=== PATIENT | female | born 1940 | race Caucasian/White ===

== ENCOUNTER 2021-11-02 09:43 | Inpatient (IN) | payer MEDICARE, SELFPAY ==
[2021-11-02] VITALS (21 sets, daily range): BP systolic 110–158; BP diastolic 50–82; PULSE 65–81; RESP 17–28; TEMP 35.7–36.8; O2SAT 92–100
--- NOTE | ~2021-11-02 | XR_ITS ---
EXAMINATION: XR chest 2V DATE: 11/06/2021 08:30 INDICATION: Congestive heart failure with shortness of breath. TECHNIQUE: frontal and lateral views of the chest were obtained. COMPARISON: Chest radiograph dated 11/05/[address] dated 04/18 FINDINGS: Hazy opacities in the left mid and upper lung zones and more dense consolidation in the left lower lauren ng zone. Blunting at the left costophrenic angle. Dense material along the right heart border without correlate on the prior CT most likely related to ingested material within a moderate-sized sliding-t ype hiatal hernia. No pneumothorax or right-sided pleural effusion. Cardiomegaly with dense mitral an nular calcification. Dual lead pacemaker seen with leads projecting over the expected locations of th e right atrium and right ventricle. Chronic calcified nodules projecting over the liver likely relate d to old granulomatous disease. Severe bilateral glenohumeral osteoarthritis. Multiple surgical clips projecting over the left axilla. IMPRESSION: 1. Moderate-sized left pleural effusion with atelectasis and/or pneumonia. Left lower lung zone. Reviewed, dictated and finalized at location A. [employer] LIN[employer] UNDERWRITER
--- NOTE | ~2021-11-02 | CT_ITS ---
EXAMINATION: CT brain wo con EXAM DATE: 11/03/2021 00:17 INDICATION: Confusion . TECHNIQUE: Spiral CT of the head was performed without contrast. Axial, coronal and sagittal images were reviewed. The dose-length product (DLP) for this examination was 681.00 mGy-cm. The exposure w as tailored according to patient size, and iterative reconstruction (ASIR) was used as additional dos e reduction technique. There is no prior study for comparison. FINDINGS: There is no acute intraparenchymal hemorrhage. No evidence of intraparenchymal brain mass lesion. No evidence of acute infarction. Please note that initial head CT has limited sensitivity f or small or acute infarctions. There is mild periventricular and subcortical hypodensity, nonspecific but probably related to small vessel ischemic disease. There is mild prominence of the sulci and v entricles related to cerebral atrophy. There is intracranial carotid arteriosclerosis. There are n o extra-axial collections. There is no mass effect or midline shift. The orbits are unremarkable. Bilateral The visualized sinuses and mastoid air cells are well aerated. IMPRESSION: 1. No acute intracranial findings. 2. Chronic age related findings. Reviewed, dictated and finalized at location G. ER APPRENTICE
--- NOTE | ~2021-11-02 | CT_ITS ---
EXAMINATION: CT diagnostic chest wo con EXAM DATE: 11/02/2021 15:06 INDICATION: Pleural effusion . TECHNIQUE: Spiral CT of the chest without contrast. Axial, coronal and sagittal images of the chest were reviewed. Coronal maximum intensity pixel images of chest reviewed. The dose-length product ( DLP) for this examination was 468.84 mGy-cm. The exposure was tailored according to patient size (au to mA exposure control), and iterative reconstruction (ASIR) was used as additional dose reduction te chnique. Correlation is made to chest x-ray same date. FINDINGS: Moderate cardiomegaly. The main, central pulmonary arteries are dilated which can indicate elevated pulmonary arterial pressure, pulmonary arterial hypertension. Small to moderate pericardial effusion. There is moderate to large size left pleural effusion with collapsed left lower lobe. Ther e is small right pleural effusion with segmental atelectasis. There is right upper lobe 7 mm nodule, indeterminate. Cluster of right lower lobe nodule just above the diaphragm, largest measuring 8 mm. M oderate size sliding gastroesophageal hiatal hernia. No thoracic lymphadenopathy. There are left axil kati surgical clips. Severe bilateral glenohumeral joint osteoarthritis. Left glenohumeral joint effu jermaine. There are no osteoblastic or osteolytic lesions identified. Mild emphysema. Cholelithiasis. IMPRESSION: 1. Moderate to large left nonloculated joint effusion, left lower lobe collapse. 2. Cardiomegaly, small to moderate pericardial effusion. 3. Right lower lobe segmental atelectasis, small pleural effusion. 4. Several right lung nodules, probably infectious or postinfectious but 3 month follow-up chest CT recommended. 5. Mild emphysema. 6. Moderate hiatal hernia. 7. Cholelithiasis. Reviewed, dictated and finalized at location A. Y CLERK IMPRESSION: 1. Moderate to large left nonloculated joint effusion, left lower lobe collaps e. 2. Cardiomegaly, small to moderate pericardial effusion. 3. Right lower lobe segmental atelectasis, small pleural effusion. 4. Several right lung nodules, probably infectious or postinfectious but 3 mon th follow-up chest CT recommended. 5. Mild emphysema. 6. Moderate hiatal hernia. 7. Cholelithiasis.
--- NOTE | ~2021-11-02 | XR_ITS ---
XR chest 1V portable 11/05/2021 05:43 Indication: Pleural effusion Procedure: AP portable chest Comparison: 11/02/2021 Findings: There is bilateral airspace disease. Cardiomegaly. Pacemaker leads are stable. Small-modera te left pleural effusion unchanged. No pneumothorax. Advanced degenerative changes of the shoulders, left greater than right. Impression: 1: Bilateral airspace disease with small-moderate left pleural effusion. Differential diagnosis inclu emil edema and pneumonia. No significant interval change. Reviewed, dictated and finalized at location A. ROOM OPERATOR Impression: 1: Bilateral airspace disease with small-moderate left pleural effusion. Differ ential diagnosis includes edema and pneumonia. No significant interval change.
--- NOTE | ~2021-11-02 | XR_ITS ---
EXAMINATION: XR chest 1V portable DATE: 11/02/2021 12:12 INDICATION: Fever. TECHNIQUE: A single frontal view of the chest was obtained. COMPARISON: None. FINDINGS: There is a moderate-sized left pleural effusion. There are airspace opacities in all lung z ones bilaterally with a perihilar and left basilar predominance. No pneumothorax. The heart size is n ormal. There is a left chest wall pacer with leads in the right atrium and right ventricle. There are surgical clips in left axilla. IMPRESSION: 1. Moderate-sized left pleural effusion. 2. Diffuse lung disease, consistent with pulmonary edema versus pneumonia. Reviewed, dictated and finalized at location A. [employer]
[2021-11-02 11:17] LABS: Basophils Absolute Auto 0.1 K/mm3 (0.0-0.1); Basophils Percent Auto 0.7 % (0.2-1.2); Eosinophils Absolute Auto 0.6 K/mm3 (0-0.3); Eosinophils Percent Auto 5.2 % (0-4.4); Hematocrit 36.4 % (37.0-47.0); Hemoglobin 10.8 g/dL (12.0-15.0); Immature Granulocyte Absolute 0.06 K/mm3 (0.00-0.031); Immature Granulocyte Percent A 0.5 % (0-0.5); Lymphocytes Absolute Auto 1.08 K/mm3 (0.9-3.2); Lymphocytes Percent Auto 8.9 % (18.3-44.2); Mean Corpuscular HGB Conc 29.7 g/dl (32-36); Mean Corpuscular Hemoglobin 27.7 pg (26-34); Mean Corpuscular Volume 93.3 fl (80-100); Monocytes Absolute Auto 0.9 K/mm3 (0.1-0.6); Monocytes Percent Auto 7.7 % (2.6-8.5); Neutrophils Absolute Auto 9.3 K/mm3 (1.3-6.7); Platelet Count Result 432 k/mm3 (150-375); Red Cell Distribution Width 16.7 % (11.5-14.5); White Blood Count 12.1 K/mm3 (4.5-10.0)
[2021-11-02 11:24] LABS: Add Urine Microscopic? YES; Appearance Urine Turbid (Clear); Bilirubin Urine Negative (Negative); Color Urine Yellow (Yellow); Glucose Urine UA Negative (Negative); Ketones Urine Negative (Negative); Leukocyte Esterase Ur 3+ LEU/UL (Negative); Mucus Urine Rare /lpf; Nitrate Urine Negative (Negative); Protein Urine 2+ mg/dL (Negative); RBC Urine 21-50 /hpf (0-2); Urobilinogen Urine Negative mg/dL (<2.0); WBC Urine >75 /hpf
[2021-11-02 11:25] LABS: Blood Urine Negative (Negative)
--- NOTE | 2021-11-02 11:29 | ED.FEVER ---
HPI - Fever General Chief Complaint: Fever Stated Complaint: Fever Time Seen by Provider: 11/02/21 10:46 Source: EMS and RN notes reviewed Limitations: dementia History of Present Illness HPI Narrative: Patient is 80 years old white male brought to the emergency room by ambulance from [facility] because of fever and hallucination. EMT reported that patient was off oxygen at the time when they got there. Patient normally on 2 L of oxygen all the time.. Currently patient is asymptomatic denying any complaint. Related Data Home Medications Medication Instructions Recorded Confirmed aspirin 81 mg PO DAILY 11/02/21 11/02/21 clopidogrel 75 mg PO DAILY 11/02/21 11/02/21 cyanocobalamin (vitamin B-12) 100 mcg PO DAILY 11/02/21 11/02/21 lisinopril 10 mg PO DAILY 11/02/21 11/02/21 mesalamine 1.2 g PO BID 11/02/21 11/02/21 nitroglycerin 0.4 mg SUBLINGUAL Q5M PRN 11/02/21 11/02/21 oxcarbazepine 300 mg PO BID 11/02/21 11/02/21 pyridoxine (vitamin B6) 100 mg PO DAILY 11/02/21 11/02/21 tetrahydrozoline [Visine] 2 drp EACH EYE TID 11/02/21 11/02/21 umeclidinium [Incruse Ellipta] 1 inh INHALATION DAILY 11/02/21 11/02/21 Allergies Allergy/AdvReac Type Severity Reaction Status Date / Time amoxicillin [From Augmentin] Allergy Unknown Verified 11/02/21 10:07 azithromycin Allergy Unknown Verified 11/02/21 10:07 celecoxib [From Celebrex] Allergy Unknown Verified 11/02/21 10:07 ciprofloxacin [From Cipro] Allergy Unknown Verified 11/02/21 10:07 clavulanic acid Allergy Unknown Verified 11/02/21 10:07 [From Augmentin] codeine Allergy Unknown Verified 11/02/21 10:07 Corticosteroids Allergy Unknown Verified 11/02/21 10:07 (Glucocorticoids) dill oil Allergy Unknown Verified 11/02/21 10:07 divalproex sodium Allergy Unknown Verified 11/02/21 10:07 [From Depakote] doxycycline Allergy Unknown Verified 11/02/21 10:07 erythromycin base Allergy Unknown Verified 11/02/21 10:07 hydralazine Allergy Unknown Verified 11/02/21 10:07 hydrochlorothiazide Allergy Unknown Verified 11/02/21 10:07 ipratropium [From Atrovent] Allergy Unknown Verified 11/02/21 10:07 lithium Allergy Unknown Verified 11/02/21 10:07 magnesium Allergy Unknown Verified 11/02/21 10:07 mesalamine [From Asacol] Allergy Unknown Verified 11/02/21 10:07 NSAIDS (Non-Steroidal Allergy Unknown Verified 11/02/21 10:07 Anti-Inflamma petrolatum,white Allergy Unknown Verified 11/02/21 10:07 [From Vaseline] rahul hips Allergy Unknown Verified 11/02/21 10:07 Xsltxuv-SDI-MpA Reductase Allergy Unknown Verified 11/02/21 10:07 Inhibitor Sulfa (Sulfonamide Allergy Unknown Verified 11/02/21 10:07 Antibiotics) tramadol Allergy Unknown Verified 11/02/21 10:07 triamcinolone Allergy Unknown Verified 11/02/21 10:07 diuretic Allergy Unknown Uncoded 11/02/21 10:07 Review of Systems Review of Systems: ROS unobtainable: Yes unobtainable due to mental status Exam Narrative: General appearance: Well-developed, well-nourished Skin: Normal color Head: Normocephalic, nontraumatic Eyes: Clear conjunctiva ENT: Oropharynx normal, ears normal, nose normal Neck: Supple, nontender Chest and respiratory: Airway patent, no respiratory distress, no accessory muscle use Heart: Regular rate/rhythm Abdomen: Soft, nontender, no organomegaly, quiet bowel sounds Vascular: Normal peripheral pulses, normal capillary refill. Musculoskeletal: Patient laying down in bed, Neurologic: Alert and oriented to her name only Course Course Emergency Course: Stable Vital Signs Vital signs: Vital Signs Temperature 36.8 C 11/02/21 09:55 Pulse Rate 77 11/02/21 09:55 Respiratory Rate 23 H 11/02/21
[2021-11-02 11:31] LABS: Hypochromasia 1+ (NORMAL); Ovalocytes 1+ (NORMAL); Platelet Estimate Adequate (Adequate); Poikilocytosis 1+ (NORMAL); Stomatocytes 1+ (NORMAL)
[2021-11-02] MEDS: SODIUM CHLORIDE 0.9% IV 1,000 ML 999 ML IV CONT (11:33)
[2021-11-02 11:38] LABS: Alanine Aminotransferase 14 U/L (4-35); Albumin Level 3.7 g/dL (3.5-5.1); Alkaline Phosphatase 76 U/L (38-126); Anion Gap 7 mmol/L (8-16); Aspartate Amino Transferase 22 U/L (14-36); Bilirubin,Total 0.2 mg/dL (0.2-1.3); Blood Urea Nitrogen 20 mg/dL (7-17); Calcium 9.5 mg/dL (8.4-10.2); Carbon Dioxide 26 mmol/L (22-30); Chloride 105 mmol/L (98-107); Estimated Glomerular Filt Rate > 60; Glucose 130 mg/dL (65-110); Potassium 4.8 mmol/L (3.4-5.0); Sodium 138 mmol/L (137-145)
[2021-11-02 11:42] LABS: Alveolar/Arterial O2 Gradient 60.2 mmHg; Base Excess ABG -3.6 mEq/l (+/-2.0); Fractional Inspired Oxygen 28 %; HCO3 ABG 22.1 mEq/l (22.0-26.0); Oxygen Content ABG 15.1 %vol (16.0-22.0); Oxygen Saturation ABG 96.3 % (95.0-100.0); Oxyhemoglobin 95.5 % THb (90.0-100.0); PCO2 ABG 42.4 mmHg (35.0-45.0); PO2 ABG 89.4 mmHg (80.0-100.0); PO2 FiO2 Ratio Arterial Blood 3.19 %; Total Hemoglobin 11.2 g/dL (12.0-18.0); pH ABG 7.335 (7.350-7.450)
[2021-11-02 11:43] LABS: Device NASAL CANNULA; Modified Allen's Test Pass; Site Drawn LEFT RADIAL
[2021-11-02 12:55] LABS: INR 1.1; Partial Thromboplastin Time 25.5 SECONDS (22.3-36.8); Prothrombin Time 13.8 Seconds (11.1-14.7)
[2021-11-02 13:00] LABS: CRP 3.8 mg/dL (<1.0)
--- NOTE | 2021-11-02 14:25 | PC.NURSE ---
Pt acting more confused than when she first arrived. talking about things that are not making since.
--- NOTE | 2021-11-02 14:45 | PM.IMHP ---
H&P: HPI History of Present Illness Date/Time: 11/02/21 14:45 Chief Complaint: Fever and confusion. Narrative: This is a 80-year-old female who presented to the emergency department earlier today via EMS from rehab for evaluation of fever and confusion. She is not a great historian and unfortunately has never been seen at this facility and as such a majority of the following is obtained via a review of the limited paperwork which accompanies her. She was not able to tell me about her chronic medical conditions, previous surgeries, or family history. The patient tells me that she has from [place] and that she has been hospitalized in several places recently, and is reportedly here for rehab, though she cannot give me any specifics. She is aware that she is in the hospital but does not know why she was brought here and tells me that she feels just fine. According to EMS documentation, she is alert and oriented x4 at baseline though today she was noted to be confused and seemed to be worried that she is being lied to in that she is not safe. Due to her confusion and fever (101.7? F) she was sent in for evaluation. Pertinent findings in the ED include a white blood cell count of 12,000, CRP of 3.8, and abnormal urinalysis with 3+ leukocyte esterase and greater than 75 WBC. Chest x-ray showed a moderate size left pleural effusion as well as diffuse lung disease consistent with pulmonary edema versus pneumonia. A subsequent CT of the chest showed a moderate to large left pleural effusion with left lower lobe collapse, small to moderate pericardial effusion, several right lung nodules (probably infectious or postinfectious), and left glenohumeral joint effusion with other nonacute findings. Rapid COVID test came back negative. At the time my evaluation she is quite chatty but she remains confused. She does not know why she was brought to the emergency department and she seems to not trust any of the information that I am giving her. She is adamant that she does not have a urine infection ?as I have no symptoms of that whatsoever.? She also denies fever, chills, sweats, cold and flu symptoms, swelling or pain in her left shoulder, chest pain, shortness of breath, cough, nausea, vomiting, and diarrhea. Review of Systems Review of Systems: Twelve systems were reviewed. She is not aware of any sick contacts. She denies dysphagia and concerns for aspiration. She does not think she has had any recent illnesses however she tells me that she has been in several hospitals recently though the reason of which she was hospitalized is not clear. She does remember that her legs were pretty swollen with her hospitalizations and she thinks she may have congestive heart failure. She denies orthopnea, PND, and any significant lower extremity edema at this time. She has not had chest pain, pleuritic pain, or palpitations. Except as documented, all other systems were reviewed and are negative. [facility] Past Medical History Medical History (Updated 11/02/21 @ 21:52 by Fay Lima PA-C) Chronic respiratory failure with hypoxia, on home oxygen therapy Congestive heart failure Diabetic peripheral neuropathy Hypertension Type 2 diabetes mellitus Ulcerative colitis Surgical History Surgical History (Updated 11/02/21 @ 20:21 by Fay Lima PA-C) History of bilateral knee replacement Family History Family History Other Family history unknown Social History Social History (Updated 11/02/21 @ 21:53 by Fay Lima PA-C) Social History: Surrogate decision maker: Jacquelyn Bella, daughter. Code status: Full code. Smoking status: Former smoker Alcohol intake: never Substance use: never Meds Home Medications and Allergies Home Medications Medication Instructions Recorded Confirmed Type albuterol sulfate 2 puff INHALATION Q4H PRN 11/02/21 11/02/21 History ascorbic acid (vitamin C) 25
--- NOTE | 2021-11-02 14:54 | PC.NURSE ---
Pt yelled out and says im bleeding! this RN went in and found both of pts IVs on the floor. Pt placed on a bed alarm at this time.
[2021-11-02 15:09] LABS: EDCOVIDSCREEN Negative (Negative)
[2021-11-02] MEDS: SODIUM CHLORIDE 0.9% IV 1,000 ML 125 ML IV CONT (15:26)
--- NOTE | 2021-11-02 19:57 | ADMGEN ---
This patient, Isela Bella, was admitted to Medical Room 245-. Patient/family oriented to hospital policies and general routines including ID bracelet, bed and alarms, visiting hours, pain management, procedures, bathroom and other care routines, personal items, smoking policy, room service/diet, and visiting hours. Information on how to activate the Rapid Response Team has been discussed. Patient/Family are encouraged to report perceived risks to care and to ask questions if they do not understand what they are told or what they should do.
[2021-11-02 22:05] LABS: Glucose Point of Care 165 mg/dl (65-105)
[2021-11-02 22:48] LABS: Influenza Control Positive
--- NOTE | 2021-11-03 | ECHO_ITS ---
Patient Info Name: Isela Bella Age: 80 years : 1940 Gender: Female Ht: 64 in Wt: 164 lbs BSA: 1.85 m2 HR: 78 bpm BP: 111 / 56 mmHg Technical Quality: Fair Exam Date: 11/03/2021 2:59 PM Exam Location: [facility] Patient Status: Inpatient Admit Date: 11/02/2021 Staff Ordering Physician: Alcides Beal Plant Production Worker: Atul Bella RDCS, RT Attending Provider: Juan Jose Garcia MD Referring Physician: Emigdio REN; Exam Type: CA echo doppler color flow Study Info Indications J91.8 - Pleural effusion in other conditions classified elsewhere Complete two-dimensional, color flow and Doppler transthoracic echocardiogram is performed with contrast to opacify the left ventricle and to improve the deliniation of the left ventricle endocardial borders. Summary 1. Left ventricular chamber dimension is normal. 2. Definity contrast administered improved wall motion interpretation. 3. Ventricular septum is mildly sigmoid shaped. No LVOT obstruction. 4. Left ventricular systolic function is normal, estimated at 65-70%. 5. There is mildly increased left ventricular wall thickness. 6. The left ventricular diastolic function is grade I diastolic dysfunction. 7. E/e' 14 is mildly elevated. 8. Right ventricular systolic function is reduced based on abnormal TAPSE 1.4 cm. 9. Linear artifact in right ventricle suggestive of catheter(s), pacemaker lead(s), or ICD lead(s). 10. Left atrial chamber dimension is moderately enlarged. 11. Linear artifact in the right atrium suggestive of catheter(s), pacemaker lead(s), or ICD lead(s). 12. There is severe aortic valve sclerosis. 13. There is severe aortic valve stenosis with a peak velocity of 443 cm/s, mean gradient of 33 mmHg, and aortic valve area of 0.9 cm2. 14. The mitral valve has mildly calcified mitral valve leaflets and moderately calcified annulus. 15. There is small circumferential pericardial effusion. No cardiac tamponade. Left Ventricle E/e' 14 is mildly elevated. Definity contrast administered improved wall motion interpretation. Ventricular septum is mildly sigmoid shaped. No LVOT obstruction. Left ventricular chamber dimension is normal. Left ventricular systolic function is normal, estimated at 65-70%. There is mildly increased left ventricular wall thickness. The left ventricular diastolic function is grade I diastolic dysfunction. Right Ventricle Right ventricular systolic function is reduced based on abnormal TAPSE 1.4 cm. Linear artifact in right ventricle suggestive of catheter(s), pacemaker lead(s), or ICD lead(s). Right ventricular chamber dimension is not well visualized. Left Atria Left atrial chamber dimension is moderately enlarged. Right Atria Linear artifact in the right atrium suggestive of catheter(s), pacemaker lead(s), or ICD lead(s). Right atrial chamber dimension is normal. Aortic Valve The aortic valve is not well visualized. Cannot determine number of aortic valve leaflets. There is severe aortic valve sclerosis. There is severe aortic valve stenosis with a peak velocity of 443 cm/s, mean gradient of 33 mmHg, and aortic valve area of 0.9 cm2. There is no aortic valve regurgitation. Pulmonic Valve There is no pulmonic regurgitation. Mitral Valve The mitral valve has mildly calcified mitral valve leaflets and moderately calcified annulus. There is no mitral valve stenosis. There is no mitral valve regurgitation. Tricuspid Valve There is no tricuspid valve regurgitation.
[2021-11-03 01:26] LABS: Hemoglobin A1C 6.8 % (<5.7)
[2021-11-03 03:15] VITALS: BP 131/50; PULSE 65; RESP 16; TEMP 36.4; O2SAT 99
[2021-11-03 05:44] LABS: Hematocrit 33.2 % (37.0-47.0); Hemoglobin 9.8 g/dL (12.0-15.0); Mean Corpuscular HGB Conc 29.5 g/dl (32-36); Mean Corpuscular Hemoglobin 27.5 pg (26-34); Mean Platelet Volume 10.1 fl (7.4-10.4); Platelet Count Result 403 k/mm3 (150-375); Red Blood Count 3.57 M/mm3 (4.2-5.4); Red Cell Distribution Width 16.3 % (11.5-14.5)
[2021-11-03 08:00] VITALS: BP 122/48; PULSE 60; RESP 14; TEMP 36.6; O2SAT 97
[2021-11-03 08:27] LABS: Glucose Point of Care 126 mg/dl (65-105)
[2021-11-03 08:49] LABS: Anion Gap 8 mmol/L (8-16); Blood Urea Nitrogen 13 mg/dL (7-17); Calcium 8.9 mg/dL (8.4-10.2); Carbon Dioxide 22 mmol/L (22-30); Chloride 109 mmol/L (98-107); Estimated Glomerular Filt Rate > 60; Glucose 124 mg/dL (65-110); Magnesium 1.6 mg/dL (1.6-2.3); Potassium 4.3 mmol/L (3.4-5.0); Sodium 139 mmol/L (137-145)
[2021-11-03 08:52] LABS: Free T4 Free Thyroxine Reflex 0.44 ng/dL (0.78-2.19)
[2021-11-03] MEDS: ASPIRIN 81 MG ENTERIC TABLET PO (08:57)
[2021-11-03] MEDS: ASCORBIC ACID 250 MG TABLET PO ×2 (08:57→17:49)
[2021-11-03] MEDS: PYRIDOXINE HCL 50 MG TABLET 100 MG PO (08:57)
[2021-11-03] MEDS: LEVOTHYROXINE SODIUM 150 MCG TABLET PO (08:57)
[2021-11-03] MEDS: OXcarbazepine 300 MG TABLET PO ×2 (08:57→17:49)
[2021-11-03] MEDS: CLOPIDOGREL BISULFATE 75 MG TABLET PO (08:57)
[2021-11-03] MEDS: glipiZIDE 5 MG TABLET PO (08:58)
[2021-11-03] MEDS: lisinopriL 10 MG TABLET PO (08:58)
[2021-11-03] MEDS: GABAPENTIN 100 MG CAPSULE 200 MG PO ×2 (08:59→17:50)
[2021-11-03 09:22] LABS: Vitamin B12 > 1000.0 pg/mL (239-931)
--- NOTE | 2021-11-03 09:30 | PM.IMPN ---
Progress Note: A&P Assessment and Plan (1) Metabolic encephalopathy: Code(s): G93.41 - Metabolic encephalopathy Status: Acute Assessment and Plan: Seems to be better today Likely related to fever Urinalysis is abnormal, denies symptoms of UTI Chest x-ray showed pulmonary edema versus pneumonia chest CT shows several right lung nodules which is felt to be infectious or postinfectious. Due to allergies continue ceftriaxone for now urine and sputum cultures collected and pending (2) Abnormal urinalysis: Code(s): R82.90 - Unspecified abnormal findings in urine Status: Acute Assessment and Plan: Urine concerning for urinary tract infection UA shows tubid, positive leukocyte esterase, and WBC >75 Continue ceftriaxone pending urine culture (3) Congestive heart failure: Code(s): I50.9 - Heart failure, unspecified Status: Acute Assessment and Plan: Chest xray shows Moderate-sized left pleural effusion, Diffuse lung disease, consistent with pulmonary edema versus pneumonia. Chest CT: Moderate to large pleural effusion nonloculated small to moderate pericardial effusion Cardiomeagaly Start of with 40mg IV daily for now Echo is ordered to determine if this is an acute exacerbation and if so if it is diastolic/systolic Trend urine output Daily weight (4) Chronic respiratory failure with hypoxia, on home oxygen therapy: Code(s): J96.11 - Chronic respiratory failure with hypoxia; Z99.81 - Dependence on supplemental oxygen Status: Acute Assessment and Plan: SpO2 is 100% on 2 L nasal cannula No noted desaturation (5) Hypertension: Code(s): I10 - Essential (primary) hypertension Status: Acute Assessment and Plan: Current BP is 122/48 Continue home lisinopril 10mg Trend blood pressure adjust therapy as indicated (6) Ulcerative colitis: Code(s): K51.90 - Ulcerative colitis, unspecified, without complications Status: Acute Assessment and Plan: Abdominal exam is benign and she has no complaints of pain at this time Continue home meslamine (7) Type 2 diabetes mellitus: Code(s): E11.9 - Type 2 diabetes mellitus without complications Status: Acute Assessment and Plan: Glucose on labs 124 Initiate sliding scale insulin Accu-Cheks hypoglycemic protocol hemoglobin A1c 6.8 Hold home glipizide (8) Fever: Code(s): R50.9 - Fever, unspecified Status: Acute Assessment and Plan: Not sure that this is relevant any further since there is no reported fever for more than 24 hours Secondary to possible UTI or ABG even pneumonia. Rapid COVID test was negative. Influenza negative (9) Pleural effusion: Code(s): J90 - Pleural effusion, not elsewhere classified Status: Acute Assessment and Plan: Moderate to large left side pleural effusion, with lung collapse Thoracentesis ordered and pending Hold anticoagulation for now Will need DVT Prophlyaxis add Lasix started (10) Pericardial effusion: Code(s): I31.3 - Pericardial effusion (noninflammatory) Status: Acute Assessment and Plan: Found on the CT Could be related to the CHF (11) Hypomagnesemia: Code(s): E83.42 - Hypomagnesemia Status: Acute Assessment and Plan: Mg 1.6 today Replace with 2gm IV once Trend Replace as indicated Time Spent With Patient Time with patient: Greater than 35 minutes Subjective Date/time seen: 11/03/21 09:30 Interval history: Date/Time: 11/02/21 14:45 Narrative: This is a 80-year-old female who presented to the emergency department earlier today via EMS from rehab for evaluation of fever and confusion. She is not a great historian and unfortunately has never been seen at this facility and as such a majority of the following is obt
--- NOTE | 2021-11-03 09:30 | P.PNIM_ITS ---
Progress Note: A&P Assessment and Plan (1) Metabolic encephalopathy: Code(s): G93.41 - Metabolic encephalopathy Status: Acute Assessment and Plan: * Seems to be better today * Likely related to fever * Urinalysis is abnormal, denies symptoms of UTI * Chest x-ray showed pulmonary edema versus pneumonia * chest CT shows several right lung nodules which is felt to be infectious or postinfectious. * Due to allergies continue ceftriaxone for now * urine and sputum cultures collected and pending (2) Abnormal urinalysis: Code(s): R82.90 - Unspecified abnormal findings in urine Status: Acute Assessment and Plan: * Urine concerning for urinary tract infection * UA shows tubid, positive leukocyte esterase, and WBC >75 * Continue ceftriaxone * pending urine culture (3) Congestive heart failure: Code(s): I50.9 - Heart failure, unspecified Status: Acute Assessment and Plan: * Chest xray shows Moderate-sized left pleural effusion, Diffuse lung disease, consistent with pulmonary edema versus pneumonia. * Chest CT: Moderate to large pleural effusion nonloculated * small to moderate pericardial effusion * Cardiomeagaly * Start of with 40mg IV daily for now * Echo is ordered to determine if this is an acute exacerbation and if so if it is diastolic/systolic * Trend urine output * Daily weight (4) Chronic respiratory failure with hypoxia, on home oxygen therapy: Code(s): J96.11 - Chronic respiratory failure with hypoxia; Z99.81 - Dependence on suppl emental oxygen Status: Acute Assessment and Plan: * SpO2 is 100% on 2 L nasal cannula * No noted desaturation (5) Hypertension: Code(s): I10 - Essential (primary) hypertension Status: Acute Assessment and Plan: * Current BP is 122/48 * Continue home lisinopril 10mg * Trend blood pressure * adjust therapy as indicated (6) Ulcerative colitis: Code(s): K51.90 - Ulcerative colitis, unspecified, without complications Status: Acute Assessment and Plan: * Abdominal exam is benign and she has no complaints of pain at this time * Continue home meslamine (7) Type 2 diabetes mellitus: Code(s): E11.9 - Type 2 diabetes mellitus without complications Status: Acute Assessment and Plan: * Glucose on labs 124 * Initiate sliding scale insulin * Accu-Cheks * hypoglycemic protocol * hemoglobin A1c 6.8 * Hold home glipizide (8) Fever: Code(s): R50.9 - Fever, unspecified Status: Acute Assessment and Plan: * Not sure that this is relevant any further since there is no reported fever for more than 24 hours * Secondary to possible UTI or ABG even pneumonia. * Rapid COVID test was negative. * Influenza negative (9) Pleural effusion: Code(s): J90 - Pleural effusion, not elsewhere classified Status: Acute Assessment and Plan: * Moderate to large left side pleural effusion, with lung collapse * Thoracentesis ordered and pending * Hold anticoagulation for now * Will need DVT Prophlyaxis add * Lasix started (10) Pericardial effusion: Code(s): I31.3 - Pericardial effusion (noninflammatory) Status: Acute Assessment and Plan: * Found on the CT * Could be related to the CHF (11) Hypomagnesemia: Code(s): E83.42 - Hypomagnesemi
[2021-11-03] MEDS: UMECLIDINIUM BROMIDE 62.5 MCG ELLIPTA 1 PUFF INHALATION (09:43)
[2021-11-03 10:11] LABS: Glucose Point of Care 131 mg/dl (65-105)
[2021-11-03] MEDS: CALCIUM CARBONATE (OSCAL) 500 MG TABLET PO (11:54)
[2021-11-03 12:02] LABS: NT Pro B Type Natriuretic Pept 1150 pg/mL (5-100)
[2021-11-03 12:03] LABS: Glucose Point of Care 120 mg/dl (65-105)
[2021-11-03 13:09] VITALS: BP 111/56; PULSE 61; RESP 14; TEMP 36.2; O2SAT 98
[2021-11-03] MEDS: MAGNESIUM SULF 2 GM/WATER 50ML 2 GM/50 ML BAG IVPB (13:29)
[2021-11-03] MEDS: MESALAMINE 400 MG DELAYED RELEASE CAPSULE 800 MG PO ×2 (13:30→21:13)
[2021-11-03] MEDS: PERFLUTREN LIPID MICROSPHERES 1.5 ML VIAL DILUTED TO 10 ML TOTAL VOLUME IV PUSH (15:35)
[2021-11-03 17:02] LABS: Glucose Point of Care 93 mg/dl (65-105)
[2021-11-03] MEDS: FUROSEMIDE INJ 40 MG/4 ML VIAL IV PUSH (17:49)
[2021-11-03 18:35] VITALS: BP 121/53; PULSE 84; RESP 16; O2SAT 98
[2021-11-03 21:10] VITALS: O2SAT 98
[2021-11-03] MEDS: ATORVASTATIN 40 MG TABLET PO (21:14)
[2021-11-03 21:27] LABS: Glucose Point of Care 142 mg/dl (65-105)
[2021-11-03 22:00] VITALS: BP 115/45; PULSE 51; RESP 20; TEMP 36.2; O2SAT 98
[2021-11-04] MEDS: MESALAMINE 400 MG DELAYED RELEASE CAPSULE 800 MG PO ×3 (05:32→20:21)
[2021-11-04] MEDS: LEVOTHYROXINE SODIUM 150 MCG TABLET PO (05:32)
[2021-11-04 06:00] VITALS: BP 111/60; PULSE 58; RESP 20; TEMP 36.2; O2SAT 98
[2021-11-04 06:00] LABS: Basophils Absolute Auto 0.1 K/mm3 (0.0-0.1); Basophils Percent Auto 1.1 % (0.2-1.2); Eosinophils Absolute Auto 0.6 K/mm3 (0-0.3); Eosinophils Percent Auto 6.6 % (0-4.4); Hematocrit 35.3 % (37.0-47.0); Hemoglobin 10.2 g/dL (12.0-15.0); Immature Granulocyte Absolute 0.04 K/mm3 (0.00-0.031); Immature Granulocyte Percent A 0.4 % (0-0.5); Mean Corpuscular HGB Conc 28.9 g/dl (32-36); Mean Corpuscular Hemoglobin 27.1 pg (26-34); Mean Corpuscular Volume 93.6 fl (80-100); Mean Platelet Volume 9.8 fl (7.4-10.4); Monocytes Absolute Auto 0.8 K/mm3 (0.1-0.6); Monocytes Percent Auto 8.8 % (2.6-8.5); Neutrophils Absolute Auto 6.5 K/mm3 (1.3-6.7); Neutrophils Percent Auto 72.1 % (45.5-73.1); Platelet Count Result 397 k/mm3 (150-375); Red Blood Count 3.77 M/mm3 (4.2-5.4); Red Cell Distribution Width 16.2 % (11.5-14.5); White Blood Count 9.1 K/mm3 (4.5-10.0)
[2021-11-04 06:23] LABS: Alanine Aminotransferase 16 U/L (4-35); Albumin Level 3.6 g/dL (3.5-5.1); Alkaline Phosphatase 68 U/L (38-126); Anion Gap 7 mmol/L (8-16); Aspartate Amino Transferase 23 U/L (14-36); Bilirubin,Total 0.2 mg/dL (0.2-1.3); Blood Urea Nitrogen 15 mg/dL (7-17); Calcium 9.3 mg/dL (8.4-10.2); Carbon Dioxide 24 mmol/L (22-30); Chloride 106 mmol/L (98-107); Estimated Glomerular Filt Rate > 60; Glucose 125 mg/dL (65-110); Magnesium 1.8 mg/dL (1.6-2.3); Potassium 4.3 mmol/L (3.4-5.0); Sodium 137 mmol/L (137-145)
[2021-11-04 08:00] LABS: Glucose Point of Care 130 mg/dl (65-105)
[2021-11-04] MEDS: OXcarbazepine 300 MG TABLET PO ×2 (09:16→16:32)
[2021-11-04] MEDS: PYRIDOXINE HCL 50 MG TABLET 100 MG PO (09:16)
[2021-11-04] MEDS: GABAPENTIN 100 MG CAPSULE 200 MG PO ×2 (09:16→16:32)
[2021-11-04] MEDS: ASCORBIC ACID 250 MG TABLET PO ×2 (09:17→16:32)
[2021-11-04] MEDS: CLOPIDOGREL BISULFATE 75 MG TABLET PO (09:17)
[2021-11-04] MEDS: ASPIRIN 81 MG ENTERIC TABLET PO (09:17)
[2021-11-04] MEDS: CALCIUM CARBONATE (OSCAL) 500 MG TABLET PO (09:17)
[2021-11-04] MEDS: lisinopriL 10 MG TABLET PO (09:17)
[2021-11-04] MEDS: FUROSEMIDE INJ 40 MG/4 ML VIAL IV PUSH (09:18)
[2021-11-04 12:05] LABS: Glucose Point of Care 209 mg/dl (65-105)
[2021-11-04] MEDS: INSULIN ASPART (*BKC) 100 UNITS/ML SUB-Q (12:10)
--- NOTE | 2021-11-04 12:59 | P.PNIM_ITS ---
Progress Note: A&P Assessment and Plan (1) Metabolic encephalopathy: Code(s): G93.41 - Metabolic encephalopathy Status: Acute Assessment and Plan: * Seems to be better * Likely related to fever * Urinalysis is abnormal, denies symptoms of UTI * Chest x-ray showed pulmonary edema versus pneumonia * chest CT shows several right lung nodules which is felt to be infectious or postinfectious. * Due to allergies continue ceftriaxone for now ,allergic to amoxicillin, azithromycin, doxycycline, erythromycin, ciprofloxacin, sulfa * urine and sputum cultures collected and pending (2) Abnormal urinalysis: Code(s): R82.90 - Unspecified abnormal findings in urine Status: Acute Assessment and Plan: * Urine concerning for urinary tract infection * UA shows tubid, positive leukocyte esterase, and WBC >75 * Continue ceftriaxone * pending urine culture Growing Gram-negative bacilli (3) Congestive heart failure: Code(s): I50.9 - Heart failure, unspecified Status: Acute Assessment and Plan: * Chest xray shows Moderate-sized left pleural effusion, Diffuse lung disease, consistent with pulmonary edema versus pneumonia. * Chest CT: Moderate to large pleural effusion nonloculated * small to moderate pericardial effusion * Cardiomeagaly * Start Lasix 40mg IV daily for now * Echo With EF 65-70 grade 1 diastolic reduced right ventricular systolic function LAE severe aortic valve stenosis small circumferential pericardial effusion * Trend urine output * Daily weight * BNP elevated at 1150 * Continue diuresis. Recheck chest x-ray in the morning (4) Chronic respiratory failure with hypoxia, on home oxygen therapy: Code(s): J96.11 - Chronic respiratory failure with hypoxia; Z99.81 - Dependence on supplemental oxygen Status: Acute Assessment and Plan: * SpO2 is 100% on 2 L nasal cannula * No noted desaturation (5) Hypertension: Code(s): I10 - Essential (primary) hypertension Status: Acute Assessment and Plan: * Continue home lisinopril 10mg * Trend blood pressure * adjust therapy as indicated (6) Ulcerative colitis: Code(s): K51.90 - Ulcerative colitis, unspecified, without complications Status: Acute Assessment and Plan: * Abdominal exam is benign and she has no complaints of pain at this time * Continue home mesalamine (7) Type 2 diabetes mellitus: Code(s): E11.9 - Type 2 diabetes mellitus without complications Status: Acute Assessment and Plan: * Initiate sliding scale insulin * Accu-Cheks * hypoglycemic protocol * hemoglobin A1c 6.8 * Hold home glipizide (8) Fever: Code(s): R50.9 - Fever, unspecified Status: Acute Assessment and Plan: * Not sure that this is relevant any further since there is no reported fever for more than 24 hours * Secondary to possible UTI or ABG even pneumonia. * Rapid COVID test was negative. * Influenza negative (9) Pleural effusion: Code(s): J90 - Pleural effusion, not elsewhere classified Status: Acute Assessment and Plan: * Moderate to large left side pleural effusion, with lung collapse * Thoracentesis ordered and pending * Hold anticoagulation for now * Will need DVT Prophlyaxis add * Lasix started (10) Pericardial effusion: Code(s): I31.3 - Pericardial effusion (noninflammatory
--- NOTE | 2021-11-04 12:59 | PM.IMPN ---
Progress Note: A&P Assessment and Plan (1) Metabolic encephalopathy: Code(s): G93.41 - Metabolic encephalopathy Status: Acute Assessment and Plan: Seems to be better Likely related to fever Urinalysis is abnormal, denies symptoms of UTI Chest x-ray showed pulmonary edema versus pneumonia chest CT shows several right lung nodules which is felt to be infectious or postinfectious. Due to allergies continue ceftriaxone for now ,allergic to amoxicillin, azithromycin, doxycycline, erythromycin, ciprofloxacin, sulfa urine and sputum cultures collected and pending (2) Abnormal urinalysis: Code(s): R82.90 - Unspecified abnormal findings in urine Status: Acute Assessment and Plan: Urine concerning for urinary tract infection UA shows tubid, positive leukocyte esterase, and WBC >75 Continue ceftriaxone pending urine culture Growing Gram-negative bacilli (3) Congestive heart failure: Code(s): I50.9 - Heart failure, unspecified Status: Acute Assessment and Plan: Chest xray shows Moderate-sized left pleural effusion, Diffuse lung disease, consistent with pulmonary edema versus pneumonia. Chest CT: Moderate to large pleural effusion nonloculated small to moderate pericardial effusion Cardiomeagaly Start Lasix 40mg IV daily for now Echo With EF 65-70 grade 1 diastolic reduced right ventricular systolic function LAE severe aortic valve stenosis small circumferential pericardial effusion Trend urine output Daily weight BNP elevated at 1150 Continue diuresis. Recheck chest x-ray in the morning (4) Chronic respiratory failure with hypoxia, on home oxygen therapy: Code(s): J96.11 - Chronic respiratory failure with hypoxia; Z99.81 - Dependence on supplemental oxygen Status: Acute Assessment and Plan: SpO2 is 100% on 2 L nasal cannula No noted desaturation (5) Hypertension: Code(s): I10 - Essential (primary) hypertension Status: Acute Assessment and Plan: Continue home lisinopril 10mg Trend blood pressure adjust therapy as indicated (6) Ulcerative colitis: Code(s): K51.90 - Ulcerative colitis, unspecified, without complications Status: Acute Assessment and Plan: Abdominal exam is benign and she has no complaints of pain at this time Continue home mesalamine (7) Type 2 diabetes mellitus: Code(s): E11.9 - Type 2 diabetes mellitus without complications Status: Acute Assessment and Plan: Initiate sliding scale insulin Accu-Cheks hypoglycemic protocol hemoglobin A1c 6.8 Hold home glipizide (8) Fever: Code(s): R50.9 - Fever, unspecified Status: Acute Assessment and Plan: Not sure that this is relevant any further since there is no reported fever for more than 24 hours Secondary to possible UTI or ABG even pneumonia. Rapid COVID test was negative. Influenza negative (9) Pleural effusion: Code(s): J90 - Pleural effusion, not elsewhere classified Status: Acute Assessment and Plan: Moderate to large left side pleural effusion, with lung collapse Thoracentesis ordered and pending Hold anticoagulation for now Will need DVT Prophlyaxis add Lasix started (10) Pericardial effusion: Code(s): I31.3 - Pericardial effusion (noninflammatory) Status: Acute Assessment and Plan: Found on the CT Could be related to the CHF (11) Hypomagnesemia: Code(s): E83.42 - Hypomagnesemia Status: Acute Assessment and Plan: Mg 1.6 today Replace with 2gm IV once Trend Replace as indicated (12) Severe aortic stenosis: Code(s): I35.0 - Nonrheumatic aortic (valve) stenosis Status: Acute Assessment and Plan: but echocardiogram Cardiology consult for CHF and severe Subjective Date/time seen: 11/04/21 12
[2021-11-04 15:25] VITALS: BP 109/45; PULSE 51; RESP 22; TEMP 37.1; O2SAT 99
[2021-11-04 16:38] LABS: Glucose Point of Care 136 mg/dl (65-105)
--- NOTE | 2021-11-04 18:43 | PCRCNOTE ---
Window of time for administration has passed. See next scheduled administration.
[2021-11-04 19:31] VITALS: BP 108/52; PULSE 79; RESP 17; TEMP 35.8; O2SAT 100
[2021-11-04] MEDS: ATORVASTATIN 40 MG TABLET PO (20:21)
[2021-11-04 20:34] VITALS: O2SAT 100
[2021-11-04 21:16] LABS: Glucose Point of Care 197 mg/dl (65-105)
[2021-11-04] MEDS: ACETAMINOPHEN 325 MG TABLET 650 MG PO (22:42)
[2021-11-05 03:25] VITALS: BP 100/42; PULSE 63; RESP 16; TEMP 36.6; O2SAT 97
--- NOTE | 2021-11-05 05:15 | PC.NURSE ---
pt incontinent and only had a light wet depends. Per bladder scan pt has 170ml of urine
[2021-11-05] MEDS: MESALAMINE 400 MG DELAYED RELEASE CAPSULE 800 MG PO ×3 (05:50→21:21)
[2021-11-05] MEDS: LEVOTHYROXINE SODIUM 150 MCG TABLET PO (05:51)
[2021-11-05 05:54] LABS: Basophils Absolute Auto 0.1 K/mm3 (0.0-0.1); Basophils Percent Auto 0.9 % (0.2-1.2); Eosinophils Absolute Auto 0.7 K/mm3 (0-0.3); Eosinophils Percent Auto 8.4 % (0-4.4); Hematocrit 32.5 % (37.0-47.0); Hemoglobin 9.5 g/dL (12.0-15.0); Immature Granulocyte Absolute 0.03 K/mm3 (0.00-0.031); Immature Granulocyte Percent A 0.4 % (0-0.5); Lymphocytes Absolute Auto 1.18 K/mm3 (0.9-3.2); Lymphocytes Percent Auto 15.1 % (18.3-44.2); Mean Corpuscular HGB Conc 29.2 g/dl (32-36); Mean Corpuscular Hemoglobin 27.4 pg (26-34); Mean Corpuscular Volume 93.7 fl (80-100); Monocytes Absolute Auto 0.8 K/mm3 (0.1-0.6); Neutrophils Absolute Auto 5.1 K/mm3 (1.3-6.7); Neutrophils Percent Auto 65.2 % (45.5-73.1); Platelet Count Result 348 k/mm3 (150-375); Red Blood Count 3.47 M/mm3 (4.2-5.4); Red Cell Distribution Width 16.5 % (11.5-14.5); White Blood Count 7.8 K/mm3 (4.5-10.0)
[2021-11-05 06:07] LABS: Alanine Aminotransferase 14 U/L (4-35); Albumin Level 3.3 g/dL (3.5-5.1); Alkaline Phosphatase 53 U/L (38-126); Anion Gap 7 mmol/L (8-16); Aspartate Amino Transferase 24 U/L (14-36); Bilirubin,Total 0.1 mg/dL (0.2-1.3); Blood Urea Nitrogen 22 mg/dL (7-17); Calcium 9.2 mg/dL (8.4-10.2); Carbon Dioxide 24 mmol/L (22-30); Chloride 106 mmol/L (98-107); Estimated Glomerular Filt Rate > 60; Glucose 173 mg/dL (65-110); Potassium 4.5 mmol/L (3.4-5.0); Sodium 137 mmol/L (137-145)
[2021-11-05 07:45] LABS: Glucose Point of Care 180 mg/dl (65-105)
--- NOTE | 2021-11-05 08:44 | P.PNIM_ITS ---
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 * Likely related to fever * Urinalysis is abnormal/UTI * Chest x-ray showed pulmonary edema versus pneumonia * chest CT shows several right lung nodules which is felt to be infectious or postinfectious. * culture grew Proteus susceptible to Rocephin, * she has gotten 3 days of IV antibiotics Rocephin on 11/03, 11/04, 11/05. (2) Abnormal urinalysis: Code(s): R82.90 - Unspecified abnormal findings in urine Status: Acute Assessment and Plan: * Urine concerning for urinary tract infection * UA shows turbid, positive leukocyte esterase, and WBC >75 * Continue ceftriaxone * No fevers today, * WBC 7.8 today (was 12 at admission). * UA at admission showed UTI, culture grew Proteus susceptible to Rocephin, * she has gotten 3 days of IV antibiotics Rocephin on 11/03, 11/04, 11/05. (3) Congestive heart failure: Code(s): I50.9 - Heart failure, unspecified Status: Acute Assessment and Plan: * Chest xray shows Moderate-sized left pleural effusion, Diffuse lung disease, consistent with pulmonary edema versus pneumonia. * Chest CT: Moderate to large pleural effusion nonloculated * small to moderate pericardial effusion * Cardiomeagaly * Start Lasix 40mg IV daily for now * Echo With EF 65-70 grade 1 diastolic reduced right ventricular systolic function LAE severe aortic valve stenosis small circumferential pericardial effusion * Trend urine output * Daily weight * BNP elevated at 1150 * Continue diuresis. Recheck chest x-ray in the morning (4) Chronic respiratory failure with hypoxia, on home oxygen therapy: Code(s): J96.11 - Chronic respiratory failure with hypoxia; Z99.81 - Dependence on supplemental oxygen Status: Acute Assessment and Plan: * SpO2 is 100% on 2 L nasal cannula - baseline * No noted desaturation (5) Hypertension: Code(s): I10 - Essential (primary) hypertension Status: Acute Assessment and Plan: * Continue home lisinopril 10mg * Trend blood pressure * adjust therapy as indicated (6) Ulcerative colitis: Code(s): K51.90 - Ulcerative colitis, unspecified, without complications Status: Acute Assessment and Plan: * Abdominal exam is benign and she has no complaints of pain at this time * Continue home mesalamine * no complaints at this time, eating meals and drinking PO (7) Type 2 diabetes mellitus: Code(s): E11.9 - Type 2 diabetes mellitus without complications Status: Acute Assessment and Plan: * Initiate sliding scale insulin * Accu-Cheks * hypoglycemic protocol * hemoglobin A1c 6.8 * Hold home glipizide * glucose today 180 * diabetic diet (8) Fever: Code(s): R50.9 - Fever, unspecified Status: Acute Assessment and Plan: * RESOLVED. * no reported fever for more than 24 hours * Secondary to possible UTI or ABG even pneumonia. * Rapid COVID test was negative. * Influenza negative (9) Pleural effusion: Code(s): J90 - Pleural effusion, not elsewhere classified Status: Acute Assessment and Plan: * Moderate to large left side pleural effusion, with lung collapse * Thoracentesis cancelled. * Hold anticoagulation for now * on asa and plavix again. * Lasix started , slow IV diuresis, due to her
--- NOTE | 2021-11-05 08:44 | PM.IMPN ---
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 Likely related to fever Urinalysis is abnormal/UTI Chest x-ray showed pulmonary edema versus pneumonia chest CT shows several right lung nodules which is felt to be infectious or postinfectious. culture grew Proteus susceptible to Rocephin, she has gotten 3 days of IV antibiotics Rocephin on 11/03, 11/04, 11/05. (2) Abnormal urinalysis: Code(s): R82.90 - Unspecified abnormal findings in urine Status: Acute Assessment and Plan: Urine concerning for urinary tract infection UA shows turbid, positive leukocyte esterase, and WBC >75 Continue ceftriaxone No fevers today, WBC 7.8 today (was 12 at admission). UA at admission showed UTI, culture grew Proteus susceptible to Rocephin, she has gotten 3 days of IV antibiotics Rocephin on 11/03, 11/04, 11/05. (3) Congestive heart failure: Code(s): I50.9 - Heart failure, unspecified Status: Acute Assessment and Plan: Chest xray shows Moderate-sized left pleural effusion, Diffuse lung disease, consistent with pulmonary edema versus pneumonia. Chest CT: Moderate to large pleural effusion nonloculated small to moderate pericardial effusion Cardiomeagaly Start Lasix 40mg IV daily for now Echo With EF 65-70 grade 1 diastolic reduced right ventricular systolic function LAE severe aortic valve stenosis small circumferential pericardial effusion Trend urine output Daily weight BNP elevated at 1150 Continue diuresis. Recheck chest x-ray in the morning (4) Chronic respiratory failure with hypoxia, on home oxygen therapy: Code(s): J96.11 - Chronic respiratory failure with hypoxia; Z99.81 - Dependence on supplemental oxygen Status: Acute Assessment and Plan: SpO2 is 100% on 2 L nasal cannula - baseline No noted desaturation (5) Hypertension: Code(s): I10 - Essential (primary) hypertension Status: Acute Assessment and Plan: Continue home lisinopril 10mg Trend blood pressure adjust therapy as indicated (6) Ulcerative colitis: Code(s): K51.90 - Ulcerative colitis, unspecified, without complications Status: Acute Assessment and Plan: Abdominal exam is benign and she has no complaints of pain at this time Continue home mesalamine no complaints at this time, eating meals and drinking PO (7) Type 2 diabetes mellitus: Code(s): E11.9 - Type 2 diabetes mellitus without complications Status: Acute Assessment and Plan: Initiate sliding scale insulin Accu-Cheks hypoglycemic protocol hemoglobin A1c 6.8 Hold home glipizide glucose today 180 diabetic diet (8) Fever: Code(s): R50.9 - Fever, unspecified Status: Acute Assessment and Plan: RESOLVED. no reported fever for more than 24 hours Secondary to possible UTI or ABG even pneumonia. Rapid COVID test was negative. Influenza negative (9) Pleural effusion: Code(s): J90 - Pleural effusion, not elsewhere classified Status: Acute Assessment and Plan: Moderate to large left side pleural effusion, with lung collapse Thoracentesis cancelled. Hold anticoagulation for now on asa and plavix again. Lasix started , slow IV diuresis, due to her age and severe valve stenosis. (10) Pericardial effusion: Code(s): I31.3 - Pericardial effusion (noninflammatory) Status: Acute Assessment and Plan: Found on the CT Could be related to the CHF BPs stable, 100/42 and 108/52 with HR 63-79, continue to monitor vitals closely Cardiology monitoring continue to treat pleural effusions to reduce with diuresis (11) Hypomagnesemia: Code(s): E83.42 - Hypomagnesemia Status: Acute Assessment and Plan:
--- NOTE | 2021-11-05 09:05 | PM.CNCAR ---
Assessment and Plan Assessment and plan (1) Severe aortic stenosis: Code(s): I35.0 - Nonrheumatic aortic (valve) stenosis Status: Acute Assessment and Plan: 80-year-old female with history of hypertension, history of pacemaker placement, type 2 diabetes mellitus, ulcerative colitis, hypothyroidism, ? COPD on home oxygen. Patient admitted with fever and altered mental status. Mental status has improved. - Workup for fever, altered mental status as per primary team. Patient's UA suggestive of UTI. - Echocardiogram shows preserved ejection fraction, severe aortic stenosis. NTproBNP is elevated at 1150. There is no significant volume overload on physical examination. Patient is currently on IV furosemide, which can be switched to p.o. tomorrow. As regards to patient's aortic stenosis, she can undergo additional workup for aortic valve replacement as an outpatient. Patient appears to be in a debilitated state right now, and will need rehab before any consideration for aortic valve replacement. - check 12 lead EKG - patient has history of permanent pacemaker placement for ? bradyarrhythmia. Patient does not recall her previous cardiac appointments. - Monitor on telemetry (2) Pericardial effusion: Code(s): I31.3 - Pericardial effusion (noninflammatory) Status: Acute Assessment and Plan: Small circumferential pericardial effusion on echocardiogram without tamponade. Continue to monitor. Patient has hypothyroidism with significantly elevated TSH levels With low T4, and pericardial effusion could be secondary to hypothyroidism. Recommend treatment of hyperthyroidism with thyroxine replacement. History of Present Illness History of Present Illness Consult date/time: 11/05/21 09:05 DATE OF CONSULT:11/05/2019 to REASON FOR CONSULT: CHF, aortic stenosis REQUESTING PHYSICIAN:Brendan Arizmendi MD CHIEF COMPLAINT: Admitted to the hospital with confusion HPI: 80-year-old female with history of hypertension, history of pacemaker placement, type 2 diabetes mellitus, ulcerative colitis, hypothyroidism, ? COPD on home oxygen. Patient was brought to [facility] Emergency Room on 11/02/2021 with fever Of 101.7? F and confusion. Rapid COVID test was reported to be negative . Patient is a poor historian. She does not recall any cardiac evaluation in the past. She does know that she has a pacemaker in place. At baseline, she has limited mobility. She reports dyspnea on exertion and occasional episodes of chest discomfort. She has not had any recent episodes of dizziness or syncope. She lives in an apartment with other female family member. Chest x-ray showed moderate-sized left pleural effusion, diffuse lung disease, consistent with pulmonary edema versus pneumonia. CT chest in addition to other findings showed moderate to large left nonloculated pleural effusion, left lower lobe collapse, cardiomegaly, small to moderate pericardial effusion; right lower lobe segmental atelectasis, small pleural effusion; several right lung nodules, probably infectious or postinfectious but 3 month follow-up chest CT recommended. CT head showed no acute intracranial findings, chronic age related findings. Patient has TSH is significantly elevated at 37.4. Patient had echocardiogram performed during this hospitalization which showed preserved ejection fraction, pacemaker in the RA/ RV, moderate left atrial enlargement, severe aortic stenosis with maximum velocity 4.4 meters/s, mean gradient 33 mmHg, small circumferential pericardial effusion. Reason For Visit: Confusion, Urinary Infection, Pleural Effusion Review of Systems Review of Systems: General: Positive for subjective fever, fatigue Psychological: positive for anxiety Ophthalmic: negative for loss of vision ENT: Negative for epistaxis, headaches Allergy and immunology: Negative for hives, nasal congestion Hematologic and lymphatic: Negative for ov
[2021-11-05] MEDS: OXcarbazepine 300 MG TABLET PO ×2 (09:08→18:10)
[2021-11-05] MEDS: lisinopriL 10 MG TABLET PO (09:08)
[2021-11-05] MEDS: ASPIRIN 81 MG ENTERIC TABLET PO (09:08)
[2021-11-05] MEDS: FUROSEMIDE INJ 40 MG/4 ML VIAL IV PUSH (09:08)
[2021-11-05] MEDS: GABAPENTIN 100 MG CAPSULE 200 MG PO ×2 (09:08→18:10)
[2021-11-05] MEDS: ASCORBIC ACID 250 MG TABLET PO ×2 (09:08→18:11)
[2021-11-05] MEDS: PYRIDOXINE HCL 50 MG TABLET 100 MG PO (09:08)
[2021-11-05] MEDS: CLOPIDOGREL BISULFATE 75 MG TABLET PO (09:08)
[2021-11-05] MEDS: CALCIUM CARBONATE (OSCAL) 500 MG TABLET PO (09:08)
[2021-11-05 09:15] VITALS: O2SAT 97
[2021-11-05] MEDS: UMECLIDINIUM BROMIDE 62.5 MCG ELLIPTA 1 PUFF INHALATION (10:02)
--- NOTE | 2021-11-05 10:18 | ECG_ITS ---
Measurements Intervals [place] Rate: 60 P: 166 TX: 201 QRS: 62 QRSD: 170 T: 6 QT: 434 QTc: 434 Interpretive Statements ELECTRONIC [employer]TRIAL PACEMAKER RIGHT BUNDLE BRANCH BLOCK ABNORMAL ECG Electronically Signed On 11-05-2021 16:00:49 [employer] by Ronald Gonzalez D.O.
[2021-11-05 10:58] LABS: NT Pro B Type Natriuretic Pept 595 pg/mL (5-100)
[2021-11-05 11:28] LABS: Glucose Point of Care 250 mg/dl (65-105)
[2021-11-05] MEDS: INSULIN ASPART (*BKC) 100 UNITS/ML SUB-Q (12:28)
[2021-11-05 14:00] VITALS: BP 100/52; PULSE 60; RESP 16; TEMP 36.7; O2SAT 100
[2021-11-05 17:38] LABS: Glucose Point of Care 148 mg/dl (65-105)
[2021-11-05 20:06] VITALS: BP 118/47; PULSE 52; RESP 17; TEMP 36.5; O2SAT 93
[2021-11-05 21:20] VITALS: O2SAT 93
[2021-11-05] MEDS: ATORVASTATIN 40 MG TABLET PO (21:22)
[2021-11-05 21:28] LABS: Glucose Point of Care 153 mg/dl (65-105)
[2021-11-06 03:36] VITALS: BP 124/72; PULSE 77; RESP 16; TEMP 36.9; O2SAT 99
[2021-11-06] MEDS: LEVOTHYROXINE SODIUM 150 MCG TABLET PO (05:24)
[2021-11-06] MEDS: MESALAMINE 400 MG DELAYED RELEASE CAPSULE 800 MG PO ×3 (05:24→21:37)
[2021-11-06] MEDS: LEVOTHYROXINE SODIUM 25 MCG TABLET PO (05:24)
--- NOTE | 2021-11-06 07:08 | P.CDI_ITS ---
CDI Query Clarification Request -CHF and Echo With EF 65-70 grade 1 diastolic reduced right ventricular systolic function LAE severe aortic valve stenosis small circumferential pericardial effusion has been documented -Echo summary: EF 65-70%, grade 1 diastolic dysfunction, severe aortic stenosis, small pericardial effusion. -11/03 BNP 1150 -Lasix 40mg IV daily ordered Please further specify type and acuity of CHF: * Systolic *Acute * Diastolic *Chronic * Both systolic and diastolic *Acute on chronic * Unable to determine *Unable to determine <Lucy Rocha RN - Last Filed: 11/06/21 08:54> Well since these findings occurred over the weekend while I was off review would indicate that this would most likely be an acute systolic and diastolic exacerbation which is indicated by the evidence produced through this Query. <CHRISTOPH Valle - Last Filed: 11/06/21 09:22>
[2021-11-06 08:00] VITALS: O2SAT 96
[2021-11-06] MEDS: GABAPENTIN 100 MG CAPSULE 200 MG PO ×2 (08:01→16:56)
[2021-11-06] MEDS: CLOPIDOGREL BISULFATE 75 MG TABLET PO (08:01)
[2021-11-06] MEDS: PYRIDOXINE HCL 50 MG TABLET 100 MG PO (08:01)
[2021-11-06] MEDS: OXcarbazepine 300 MG TABLET PO ×2 (08:02→16:55)
[2021-11-06] MEDS: ASPIRIN 81 MG ENTERIC TABLET PO (08:02)
[2021-11-06] MEDS: lisinopriL 10 MG TABLET PO (08:02)
[2021-11-06] MEDS: ASCORBIC ACID 250 MG TABLET PO ×2 (08:02→16:56)
[2021-11-06] MEDS: CALCIUM CARBONATE (OSCAL) 500 MG TABLET PO (08:02)
[2021-11-06] MEDS: FUROSEMIDE INJ 40 MG/4 ML VIAL IV PUSH (08:02)
[2021-11-06 08:03] LABS: Glucose Point of Care 134 mg/dl (65-105)
[2021-11-06] MEDS: UMECLIDINIUM BROMIDE 62.5 MCG ELLIPTA 1 PUFF INHALATION (08:24)
--- NOTE | 2021-11-06 08:58 | PM.PNCARD ---
Progress Note: A&P Assessment and Plan (1) Severe aortic stenosis: Code(s): I35.0 - Nonrheumatic aortic (valve) stenosis Status: Acute Assessment and Plan: 80-year-old female with history of hypertension, history of pacemaker placement, type 2 diabetes mellitus, ulcerative colitis, hypothyroidism, ? COPD on home oxygen. Patient admitted with fever and altered mental status. She remains confused today, has dementia at baseline. - Echocardiogram shows preserved ejection fraction, severe aortic stenosis. Now on p.o. furosemide, no significant volume overload on exam. - In regards to patient's aortic stenosis, she can undergo additional workup for aortic valve replacement as an outpatient. Patient appears to be in a debilitated state right now, and will need rehab before any consideration for aortic valve replacement. She has an appointment scheduled with Dr. Easley in 1 month. - patient has history of permanent pacemaker placement for ? bradyarrhythmia. Patient does not recall her previous cardiac appointments. - EKG showed paced rhythm, right bundle-branch block - Monitor on telemetry (2) Pericardial effusion: Code(s): I31.3 - Pericardial effusion (noninflammatory) Status: Acute Assessment and Plan: Small circumferential pericardial effusion on echocardiogram without tamponade. Continue to monitor. Patient has hypothyroidism with significantly elevated TSH levels With low T4, and pericardial effusion could be secondary to hypothyroidism. Currently being treated with levothyroxine. Subjective Date/time seen: 11/06/21 08:58 Interval history: Cardiology follow-up for aortic stenosis Date of service 11/06/2021: Patient remains confused today. She is complaining of sounds in the hospital that are distracting to her. She is denying any chest pain, shortness of breath. Review of Systems Review of Systems: All systems reviewed & are unremarkable except as noted in HPI and below ROS unobtainable: Yes unobtainable due to mental status Constitutional: Constitutional: Reports as per HPI, Denies excessive sweating, Reports fatigue, Denies headache(s), Denies increased appetite, Reports lethargy, Denies snoring, Reports weakness and Denies weight gain Eyes: Eyes: Reports as per HPI, Denies exophthalmos, Denies diplopia, Denies floaters and Denies loss of peripheral vision ENT: Reports as per HPI, Reports Normal hearing present, Denies facial pain, Denies headache(s), Denies epistaxis, Denies odynophagia and Denies tinnitus Cardiovascular: Cardiovascular: Reports as per HPI, Denies chest pain, Reports pedal edema, Reports leg edema, Denies lightheadedness, Denies palpitations, Reports dyspnea and Reports dyspnea on exertion Respiratory: Respiratory: Reports as per HPI, Denies chest congestion, Denies cough, Denies hemoptysis, Reports dyspnea, Reports dyspnea on exertion, Denies snoring and Denies wheezing Gastrointestinal: Gastrointestinal: Reports as per HPI, Denies melena, Denies hematochezia, Denies constipation, Denies diarrhea, Denies nausea, Denies odynophagia, Denies vomiting and Denies hematemesis Genitourinary: Genitourinary: Reports as per HPI Musculoskeletal: Musculoskeletal: Reports as per HPI Integumentary/Breasts: Skin/Breast: Reports as per HPI Neurologic: Reports as per HPI, Reports Normal hearing present, Denies headache(s) and Reports weakness Psychiatric: Psychiatric: Reports as per HPI Endocrine: Endocrine: Denies excessive sweating, Reports fatigue and Denies palpitations Allergic/Immunologic: Allergic/Immunologic: Denies wheezing Exam Const: General: comfortable and no acute distress HENMT: Head: normal to inspection Ears: hearing grossly normal bilaterally Eyes: General: appearance normal, both eyes and all related structures Neck: Neck: normal visual inspection and no JVD Resp: Effort & Inspection: normal respiratory effort Auscultation: clear to auscul
[2021-11-06 09:25] VITALS: O2SAT 96
[2021-11-06 11:42] LABS: Glucose Point of Care 179 mg/dl (65-105)
[2021-11-06 13:10] LABS: Basophils Absolute Auto 0.1 K/mm3 (0.0-0.1); Basophils Percent Auto 0.6 % (0.2-1.2); Eosinophils Absolute Auto 0.5 K/mm3 (0-0.3); Hematocrit 35.7 % (37.0-47.0); Hemoglobin 10.7 g/dL (12.0-15.0); Immature Granulocyte Absolute 0.04 K/mm3 (0.00-0.031); Immature Granulocyte Percent A 0.4 % (0-0.5); Lymphocytes Absolute Auto 1.02 K/mm3 (0.9-3.2); Lymphocytes Percent Auto 9.8 % (18.3-44.2); Mean Corpuscular Hemoglobin 27.8 pg (26-34); Mean Corpuscular Volume 92.7 fl (80-100); Monocytes Absolute Auto 0.8 K/mm3 (0.1-0.6); Monocytes Percent Auto 7.3 % (2.6-8.5); Neutrophils Percent Auto 76.9 % (45.5-73.1); Platelet Count Result 388 k/mm3 (150-375); Red Blood Count 3.85 M/mm3 (4.2-5.4); Red Cell Distribution Width 16.6 % (11.5-14.5); White Blood Count 10.4 K/mm3 (4.5-10.0)
[2021-11-06 13:34] LABS: Anion Gap 8 mmol/L (8-16); Blood Urea Nitrogen 26 mg/dL (7-17); Calcium 10.2 mg/dL (8.4-10.2); Carbon Dioxide 31 mmol/L (22-30); Chloride 97 mmol/L (98-107); Estimated Glomerular Filt Rate > 60; Glucose 237 mg/dL (65-110); Magnesium 1.4 mg/dL (1.6-2.3); Potassium 4.4 mmol/L (3.4-5.0); Sodium 136 mmol/L (137-145)
[2021-11-06 13:41] LABS: NT Pro B Type Natriuretic Pept 435 pg/mL (5-100)
[2021-11-06 15:49] VITALS: BP 115/48; PULSE 84; RESP 22; TEMP 36.6; O2SAT 95
[2021-11-06] MEDS: MAGNESIUM SULF 4 GM/WATER100ML 4 GM/100 ML BAG IVPB (15:56)
--- NOTE | 2021-11-06 16:05 | WPDNEURCNPN ---
Assessment and Plan Additional Plan 1. Dementia 2. Non rheumatic aortic valve stenosis for which further care will be provided as an outpatient 3. Plan of treatment as per the neurological problems concern as such Consult date: 11/07/21 HPI: Isela Bella is a 80 year old female has been admitted to the hospital through the emergency room on November 02, 2021 where she was brought by the EMS from rehab for evaluation of fever with confusion noted leave she is usually alert and oriented x4 but was found to be confused as she was febrile also she was sent for further evaluation from the [place]hab [place] [address] with CRP [place] 3.8 UA was abnormal 75 wbc's and the chest x-ray documented moderate size left pleural effusion with diffuse lung disease consistent with the pulmonary edema and the CT of the chest subsequently documented left pleural effusion with left lower lobe collapse moderate pericardial effusion and right lung nodules and left glenohumeral joint effusion as well her COVID test came back negative but she was noted leak confused. Her past history was consistent with the chronic respiratory failure with hypoxia on home oxygen therapy, congestive heart failure, diabetic peripheral neuropathy, hypertension, type 2 diabetes mellitus, and ulcerative colitis, is a former smoker with no alcohol intake and she has been on multiple outpatient medications, she was also noted to have hypothyroidism and at present she is receiving treatment for the metabolic encephalopathy with improvement and returning to baseline of her underlying dementia she is already receiving Rocephin for the culture positive for the Proteus she has received 4 days of IV antibiotics at present. Considering severe aortic stenosis further workup is being consider for the aortic valve replacement as an outpatient once her debility gets under control Review of Systems Review of Systems: All systems reviewed & are unremarkable except as noted in HPI and below PMFSH Past Medical History Medical History Chronic respiratory failure with hypoxia, on home oxygen therapy Congestive heart failure Diabetic peripheral neuropathy Hypertension Type 2 diabetes mellitus Ulcerative colitis Surgical History Surgical History History of bilateral knee replacement Family History Family History Other Family history unknown Social History Social History Social History: Surrogate decision maker: Jacquelyn Bella, daughter. Code status: Full code. Smoking status: Former smoker Alcohol intake: never Substance use: never Meds Home Medications and Allergies Home Medications Medication Instructions Recorded Confirmed Type albuterol sulfate 2 puff INHALATION Q4H PRN 11/02/21 11/02/21 History ascorbic acid (vitamin C) 250 mg PO BID 11/02/21 11/02/21 History aspirin 81 mg PO DAILY 11/02/21 11/02/21 History atorvastatin 40 mg PO HS 11/02/21 11/02/21 History calcium carbonate 500 mg PO DAILY 11/02/21 11/02/21 History clopidogrel 75 mg PO DAILY 11/02/21 11/02/21 History coenzyme Q10 100 mg PO BID 11/02/21 11/02/21 History cyanocobalamin (vitamin B-12) 100 mcg PO DAILY 11/02/21 11/02/21 History gabapentin 200 mg PO BID 11/02/21 11/02/21 History glipizide 5 mg PO DAILY 11/02/21 11/02/21 History glucosamine-chondroitin 3 tablet PO BID 11/02/21 11/02/21 History levothyroxine 150 mcg PO DAILY 11/02/21 11/02/21 History lisinopril 10 mg PO DAILY 11/02/21 11/02/21 History mesalamine 1.2 g PO BID 11/02/21 11/02/21 History nitroglycerin 0.4 mg SUBLINGUAL Q5M PRN 11/02/21 11/02/21 History oxcarbazepine 300 mg PO BID 11/02/21 11/02/21 History pyridoxine (vitamin B6) 100 mg PO DAILY 11/02/21 11/02/21 History tetrahydrozoline [Visine] 2 drp EACH EYE TID 11/02/21 11/02/21 History umeclid
[2021-11-06 16:41] LABS: Glucose Point of Care 181 mg/dl (65-105)
[2021-11-06 21:25] VITALS: BP 124/49; PULSE 80; RESP 20; TEMP 36.4; O2SAT 95
[2021-11-06] MEDS: ATORVASTATIN 40 MG TABLET PO (21:38)
[2021-11-06 22:09] LABS: Glucose Point of Care 219 mg/dl (65-105)
--- NOTE | 2021-11-06 22:59 | PC.NURSE ---
pt has not urinated in >12h at shift change. Pt bladder scan shows 187ml max. Pt is incontinent.
[2021-11-07 04:19] VITALS: BP 133/69; PULSE 61; RESP 20; TEMP 36.1; O2SAT 92
[2021-11-07 05:53] LABS: Basophils Absolute Auto 0.1 K/mm3 (0.0-0.1); Basophils Percent Auto 0.8 % (0.2-1.2); Eosinophils Absolute Auto 0.7 K/mm3 (0-0.3); Eosinophils Percent Auto 6.8 % (0-4.4); Hematocrit 34.5 % (37.0-47.0); Hemoglobin 10.4 g/dL (12.0-15.0); Immature Granulocyte Absolute 0.06 K/mm3 (0.00-0.031); Immature Granulocyte Percent A 0.6 % (0-0.5); Lymphocytes Absolute Auto 1.28 K/mm3 (0.9-3.2); Lymphocytes Percent Auto 12.9 % (18.3-44.2); Mean Corpuscular HGB Conc 30.1 g/dl (32-36); Mean Corpuscular Hemoglobin 27.1 pg (26-34); Mean Corpuscular Volume 89.8 fl (80-100); Mean Platelet Volume 10.1 fl (7.4-10.4); Monocytes Absolute Auto 0.9 K/mm3 (0.1-0.6); Monocytes Percent Auto 9.2 % (2.6-8.5); Neutrophils Absolute Auto 6.9 K/mm3 (1.3-6.7); Neutrophils Percent Auto 69.7 % (45.5-73.1); Platelet Count Result 374 k/mm3 (150-375); Red Blood Count 3.84 M/mm3 (4.2-5.4); Red Cell Distribution Width 16.3 % (11.5-14.5); White Blood Count 9.9 K/mm3 (4.5-10.0)
[2021-11-07 05:55] LABS: Anion Gap 8 mmol/L (8-16); Blood Urea Nitrogen 29 mg/dL (7-17); Calcium 9.9 mg/dL (8.4-10.2); Carbon Dioxide 27 mmol/L (22-30); Chloride 97 mmol/L (98-107); Estimated Glomerular Filt Rate > 60; Glucose 142 mg/dL (65-110); Potassium 4.2 mmol/L (3.4-5.0); Sodium 132 mmol/L (137-145)
[2021-11-07 06:04] LABS: NT Pro B Type Natriuretic Pept 511 pg/mL (5-100)
[2021-11-07] MEDS: MESALAMINE 400 MG DELAYED RELEASE CAPSULE 800 MG PO ×2 (06:05→14:10)
[2021-11-07] MEDS: LEVOTHYROXINE SODIUM 150 MCG TABLET PO (06:06)
[2021-11-07] MEDS: LEVOTHYROXINE SODIUM 25 MCG TABLET PO (06:06)
[2021-11-07 07:48] LABS: Glucose Point of Care 144 mg/dl (65-105)
[2021-11-07] MEDS: lisinopriL 10 MG TABLET PO (08:07)
[2021-11-07] MEDS: OXcarbazepine 300 MG TABLET PO (08:07)
[2021-11-07] MEDS: PYRIDOXINE HCL 50 MG TABLET 100 MG PO (08:07)
[2021-11-07] MEDS: ASPIRIN 81 MG ENTERIC TABLET PO (08:07)
[2021-11-07] MEDS: ASCORBIC ACID 250 MG TABLET PO (08:07)
[2021-11-07] MEDS: FUROSEMIDE 40 MG TABLET PO (08:08)
[2021-11-07] MEDS: GABAPENTIN 100 MG CAPSULE 200 MG PO (08:08)
[2021-11-07] MEDS: CLOPIDOGREL BISULFATE 75 MG TABLET PO (08:08)
[2021-11-07] MEDS: CALCIUM CARBONATE (OSCAL) 500 MG TABLET PO (08:09)
--- NOTE | 2021-11-07 08:15 | PM.DS ---
DS: Admitting Diagnosis Discharge Date 11/07/21 0815 Admitting Diagnosis CHF exacerbation/UTI/Confusion DS: Discharge Diagnosis Discharge Diagnosis (1) Metabolic encephalopathy: Code(s): G93.41 - Metabolic encephalopathy Status: Acute Assessment and Plan: Improved to baseline of calm dementia. Urinalysis is abnormal/UTI Chest x-ray showed Moderate-sized left pleural effusion with atelectasis and/or pneumonia. Left lower lung zone. chest CT shows several right lung nodules which is felt to be infectious or postinfectious. culture grew Proteus susceptible to Rocephin, she has gotten 4 days of IV antibiotics Rocephin (2) Abnormal urinalysis: Code(s): R82.90 - Unspecified abnormal findings in urine Status: Acute Assessment and Plan: Urine concerning for urinary tract infection UA shows turbid, positive leukocyte esterase, and WBC >75 Continue ceftriaxone No fevers today, WBC 10.4 today UA at admission showed UTI, culture grew Proteus susceptible to Rocephin, (3) Congestive heart failure: Code(s): I50.9 - Heart failure, unspecified Status: Acute Assessment and Plan: Chest xray shows Moderate-sized left pleural effusion, Diffuse lung disease, consistent with pulmonary edema versus pneumonia. Chest CT: Moderate to large pleural effusion nonloculated small to moderate pericardial effusion Cardiomeagaly Start Lasix 40mg IV daily for now Echo With EF 65-70 grade 1 diastolic reduced right ventricular systolic function LAE severe aortic valve stenosis small circumferential pericardial effusion Trend urine output Daily weight BNP down to 435 Continue diuresis. (4) Chronic respiratory failure with hypoxia, on home oxygen therapy: Code(s): J96.11 - Chronic respiratory failure with hypoxia; Z99.81 - Dependence on supplemental oxygen Status: Acute Assessment and Plan: SpO2 is 100% on 2 L nasal cannula - baseline No noted desaturation (5) Hypertension: Code(s): I10 - Essential (primary) hypertension Status: Acute Assessment and Plan: Continue home lisinopril 10mg Trend blood pressure adjust therapy as indicated (6) Ulcerative colitis: Code(s): K51.90 - Ulcerative colitis, unspecified, without complications Status: Acute Assessment and Plan: Abdominal exam is benign and she has no complaints of pain at this time Continue home mesalamine no complaints at this time, eating meals and drinking PO (7) Type 2 diabetes mellitus: Code(s): E11.9 - Type 2 diabetes mellitus without complications Status: Acute Assessment and Plan: Initiate sliding scale insulin Accu-Cheks hypoglycemic protocol hemoglobin A1c 6.8 Hold home glipizide glucose today 237 diabetic diet (8) Fever: Code(s): R50.9 - Fever, unspecified Status: Acute Assessment and Plan: RESOLVED. no reported fever for more than 24 hours Secondary to possible UTI or ABG even pneumonia. Rapid COVID test was negative. Influenza negative (9) Pleural effusion: Code(s): J90 - Pleural effusion, not elsewhere classified Status: Acute Assessment and Plan: Moderate to large left side pleural effusion, with lung collapse Thoracentesis cancelled on asa and plavix again. Lasix started , slow IV diuresis, due to her age and severe valve stenosis. (10) Pericardial effusion: Code(s): I31.3 - Pericardial effusion (noninflammatory) Status: Acute Assessment and Plan: Found on the CT Could be related to the CHF BPs stable Cardiology monitoring continue to treat pleural effusions to reduce with diuresis (11) Hypomagnesemia: Code(s): E83.42 - Hypomagnesemia Status: Acute Assessment and Plan: Mg 1.4 yesterday, repeating in morning labs. Replaced with 4gm
--- NOTE | 2021-11-07 08:15 | P.DS_ITS ---
DS: Admitting Diagnosis Discharge Date 11/07/2115 Admitting Diagnosis CHF exacerbation/UTI/Confusion DS: Discharge Diagnosis Discharge Diagnosis (1) Metabolic encephalopathy: Code(s): G93.41 - Metabolic encephalopathy Status: Acute Assessment and Plan: * Improved to baseline of calm dementia. * Urinalysis is abnormal/UTI * Chest x-ray showed Moderate-sized left pleural effusion with atelectasis and/or pneumonia. Left lower lung zone. * chest CT shows several right lung nodules which is felt to be infectious or postinfectious. * culture grew Proteus susceptible to Rocephin, * she has gotten 4 days of IV antibiotics Rocephin (2) Abnormal urinalysis: Code(s): R82.90 - Unspecified abnormal findings in urine Status: Acute Assessment and Plan: * Urine concerning for urinary tract infection * UA shows turbid, positive leukocyte esterase, and WBC >75 * Continue ceftriaxone * No fevers today, * WBC 10.4 today * UA at admission showed UTI, culture grew Proteus susceptible to Rocephin, (3) Congestive heart failure: Code(s): I50.9 - Heart failure, unspecified Status: Acute Assessment and Plan: * Chest xray shows Moderate-sized left pleural effusion, Diffuse lung disease, consistent with pulmonary edema versus pneumonia. * Chest CT: Moderate to large pleural effusion nonloculated * small to moderate pericardial effusion * Cardiomeagaly * Start Lasix 40mg IV daily for now * Echo With EF 65-70 grade 1 diastolic reduced right ventricular systolic function LAE severe aortic valve stenosis small circumferential pericardial effusion * Trend urine output * Daily weight * BNP down to 435 * Continue diuresis. (4) Chronic respiratory failure with hypoxia, on home oxygen therapy: Code(s): J96.11 - Chronic respiratory failure with hypoxia; Z99.81 - Dependence on supplemental oxygen Status: Acute Assessment and Plan: * SpO2 is 100% on 2 L nasal cannula - baseline * No noted desaturation (5) Hypertension: Code(s): I10 - Essential (primary) hypertension Status: Acute Assessment and Plan: * Continue home lisinopril 10mg * Trend blood pressure * adjust therapy as indicated (6) Ulcerative colitis: Code(s): K51.90 - Ulcerative colitis, unspecified, without complications Status: Acute Assessment and Plan: * Abdominal exam is benign and she has no complaints of pain at this time * Continue home mesalamine * no complaints at this time, eating meals and drinking PO (7) Type 2 diabetes mellitus: Code(s): E11.9 - Type 2 diabetes mellitus without complications Status: Acute Assessment and Plan: * Initiate sliding scale insulin * Accu-Cheks * hypoglycemic protocol * hemoglobin A1c 6.8 * Hold home glipizide * glucose today 237 * diabetic diet (8) Fever: Code(s): R50.9 - Fever, unspecified Status: Acute Assessment and Plan: * RESOLVED. * no reported fever for more than 24 hours * Secondary to possible UTI or ABG even pneumonia. * Rapid COVID test was negative. * Influenza negative (9) Pleural effusion: Code(s): J90 - Pleural effusion, not elsewhere classified Status: Acute Assessment and Plan: * Moderate to large left side pleural effusion, with lung collapse * Thoracentesis cancelled * on asa and plavix again.
--- NOTE | 2021-11-07 08:25 | PM.PNCARD ---
Progress Note: A&P Assessment and Plan (1) Severe aortic stenosis: Code(s): I35.0 - Nonrheumatic aortic (valve) stenosis Status: Acute Assessment and Plan: 80-year-old female with history of hypertension, history of pacemaker placement, type 2 diabetes mellitus, ulcerative colitis, hypothyroidism, ? COPD on home oxygen. Patient admitted with fever and altered mental status. She remains confused today, has dementia at baseline. - Echocardiogram shows preserved ejection fraction, severe aortic stenosis. Now on p.o. furosemide, no significant volume overload on exam. - In regards to patient's aortic stenosis, she can undergo additional workup for aortic valve replacement as an outpatient. Patient appears to be in a debilitated state right now, and will need rehab before any consideration for aortic valve replacement. She has an appointment scheduled with Dr. Easley in 1 month to discuss possible work up for TAVR - patient has history of permanent pacemaker placement for ? bradyarrhythmia. Patient does not recall her previous cardiac appointments. - EKG showed paced rhythm, right bundle-branch block - Monitor on telemetry (2) Pericardial effusion: Code(s): I31.3 - Pericardial effusion (noninflammatory) Status: Acute Assessment and Plan: Small circumferential pericardial effusion on echocardiogram without tamponade. Continue to monitor. Patient has hypothyroidism with significantly elevated TSH levels With low T4, and pericardial effusion could be secondary to hypothyroidism. Currently being treated with levothyroxine. Subjective Date/time seen: 11/07/21 08:25 Interval history: Cardiology follow-up for aortic stenosis Date of service 11/06/2021: Patient remains confused today. She is complaining of sounds in the hospital that are distracting to her. She is denying any chest pain, shortness of breath. Date of service 11/07/2021: She states she is feeling better today. She does not offer any specific complaints. She continues to deny any chest pain, shortness of breath Review of Systems Review of Systems: All systems reviewed & are unremarkable except as noted in HPI and below ROS unobtainable: Yes unobtainable due to mental status Constitutional: Constitutional: Reports as per HPI, Denies excessive sweating, Reports fatigue, Denies headache(s), Denies increased appetite, Reports lethargy, Denies snoring, Reports weakness and Denies weight gain Eyes: Eyes: Reports as per HPI, Denies exophthalmos, Denies diplopia, Denies floaters and Denies loss of peripheral vision ENT: Reports as per HPI, Reports Normal hearing present, Denies facial pain, Denies headache(s), Denies epistaxis, Denies odynophagia and Denies tinnitus Cardiovascular: Cardiovascular: Reports as per HPI, Denies chest pain, Reports pedal edema, Reports leg edema, Denies lightheadedness, Denies palpitations, Reports dyspnea and Reports dyspnea on exertion Respiratory: Respiratory: Reports as per HPI, Denies chest congestion, Denies cough, Denies hemoptysis, Reports dyspnea, Reports dyspnea on exertion, Denies snoring and Denies wheezing Gastrointestinal: Gastrointestinal: Reports as per HPI, Denies melena, Denies hematochezia, Denies constipation, Denies diarrhea, Denies nausea, Denies odynophagia, Denies vomiting and Denies hematemesis Genitourinary: Genitourinary: Reports as per HPI Musculoskeletal: Musculoskeletal: Reports as per HPI Integumentary/Breasts: Skin/Breast: Reports as per HPI Neurologic: Reports as per HPI, Reports Normal hearing present, Denies headache(s) and Reports weakness Psychiatric: Psychiatric: Reports as per HPI Endocrine: Endocrine: Denies excessive sweating, Reports fatigue and Denies palpitations Allergic/Immunologic: Allergic/Immunologic: Denies wheezing Exam Const: General: comfortable and no acute distress Orientation/consciousness: No patient oriented x3 HENMT: Head: normal to in
[2021-11-07] MEDS: UMECLIDINIUM BROMIDE 62.5 MCG ELLIPTA 1 PUFF INHALATION (08:45)
[2021-11-07 10:56] LABS: Magnesium 2.3 mg/dL (1.6-2.3)
[2021-11-07 11:48] LABS: Glucose Point of Care 261 mg/dl (65-105)
[2021-11-07] MEDS: INSULIN ASPART (*BKC) 100 UNITS/ML SUB-Q (11:50)
[2021-11-07 13:04] LABS: EDCOVIDSCREEN Negative (Negative)
[2021-11-09 06:28] LABS: Oxcarbazepine 21.8 mcg/mL (8.0-35.0)
== END 2021-11-07 15:44 | DRG 291 ==
LOC: ANHED 13:25 → ANH3MEDSUR 18:02 → ANH2MED 18:27
PROVIDERS: Internal Medicine; Nurse Practitioner; Physician Assistant; Admitting Provider Family Medicine; Emergency Provider Emergency Medicine; PCP Internal Medicine; Visit Provider Nurse Practitioner
DX: I11.0 Hypertensive heart disease with heart failure (principal); I50.41 Acute combined systolic (congestive) and diastolic (congestive) heart failure; G93.41 Metabolic encephalopathy; J18.9 Pneumonia, unspecified organism; N39.0 Urinary tract infection, site not specified; I31.3 Pericardial effusion (noninflammatory); J96.11 Chronic respiratory failure with hypoxia; K51.90 Ulcerative colitis, unspecified, without complications; J90 Pleural effusion, not elsewhere classified; J98.11 Atelectasis; B96.4 Proteus (mirabilis) (morganii) as the cause of diseases classified elsewhere; I35.0 Nonrheumatic aortic (valve) stenosis; Z20.822 Contact with and (suspected) exposure to COVID-19; F03.90 Unspecified dementia, unspecified severity, without behavioral disturbance, psychotic disturbance, mood disturbance, and anxiety; E83.42 Hypomagnesemia; E11.42 Type 2 diabetes mellitus with diabetic polyneuropathy; J44.9 Chronic obstructive pulmonary disease, unspecified; E03.9 Hypothyroidism, unspecified; I50.9 Heart failure, unspecified; Z96.653 Presence of artificial knee joint, bilateral; Z99.81 Dependence on supplemental oxygen; Z87.891 Personal history of nicotine dependence; Z95.0 Presence of cardiac pacemaker
CPT/HCPCS: 36415; 36600; 51701; 70450; 71045; 71046; 71250; 80048; 80053; 80183; 81001; 82607; 82805; 82948; 83036; 83605; 83735; 83880; 84439; 84443; 85025; 85027; 85610; 85730; 86140; 87040; 87070; 87077; 87086; 87088; 87186; 87205; 87426; 87804; 93005; 94640; 96361; 96365; 96366; 96367; 96375; 96376; 97110; 97163; 97165; 97530; 97535; 99285; A9270; C8929; C9803; G0378; J0696; J1815; J1940; J3475; J7030; Q9957

== ENCOUNTER 2021-11-27 09:52 | Inpatient (IN) | payer MEDICARE, SELFPAY ==
[2021-11-27] VITALS (66 sets, daily range): BP systolic 78–148; BP diastolic 30–89; PULSE 64–96; RESP 16–29; TEMP 36.1–36.9; O2SAT 88–100; BMI 27.5
--- NOTE | ~2021-11-27 | US_ITS ---
EXAMINATION: US thoracentesis DATE: 11/28/2021 15:38 INDICATION: Left pleural effusion TECHNIQUE: The procedure and its risks and benefits were discussed with the patient. Potential risks discussed included bleeding, infection, and pneumothorax. The patient understood the risks and agreed to proceed. The skin was prepped and draped in sterile fashion. 1% lidocaine was used for local anes thesia. Under ultrasound guidance, a 5 Fr catheter with trochar was advanced into the left pleural ef fusion. Fluid was aspirated. The catheter was removed, and a dressing was applied. There were no imme diate complications. FINDINGS: Ultrasound images demonstrate a large left pleural effusion and the catheter within the fluid. IMPRESSION: 1. Successful ultrasound-guided thoracentesis yielding 1000 mL of clear dark yellow fluid. Reviewed, dictated and finalized at location A. EM MANAGER IMPRESSION: 1. Successful ultrasound-guided thoracentesis yielding 1000 mL of clear dark y ellow fluid.
--- NOTE | ~2021-11-27 | US_ITS ---
EXAMINATION: US thoracentesis DATE: 12/04/2021 10:41 INDICATION: Left pleural effusion TECHNIQUE: The procedure and its risks and benefits were discussed with the patient. Potential risks discussed included bleeding, infection, and pneumothorax. The patient understood the risks and agreed to proceed. The skin was prepped and draped in sterile fashion. 1% lidocaine was used for local anes thesia. Under ultrasound guidance, a 5 Fr catheter with trochar was advanced into the left pleural ef fusion. Fluid was aspirated. The catheter was removed, and a dressing was applied. There were no imme diate complications. FINDINGS: Ultrasound images demonstrate a left pleural effusion and the catheter within the fluid. IMPRESSION: 1. Successful ultrasound-guided thoracentesis yielding 1000 mL of clear light yellow fluid. Reviewed, dictated and finalized at location A. MARKETING AGENT
--- NOTE | ~2021-11-27 | XR_ITS ---
EXAMINATION: XR chest 1V portable DATE: 12/04/2021 22:13 INDICATION: Worsening condition. TECHNIQUE: A single frontal view of the chest was obtained. COMPARISON: Chest single view 12/04/2021 at 10:50 AM, chest CT 11/27/2021 FINDINGS: There are small right and moderate-sized left pleural effusions. There are airspace opaciti es in the mid and lower lung zones. No pneumothorax. Cardiomegaly is noted. There is a left chest wal l pacer with leads in the right atrium and right ventricle. There are surgical clips in left axilla. A right internal jugular central venous catheter is seen with tip in the right atrium. IMPRESSION: 1. Stable small right and moderate-sized left pleural effusions. 2. Airspace opacities in the mid and lower lung zones with improvement on the right, consistent with atelectasis versus pneumonia. 3. Cardiomegaly. Reviewed, dictated and finalized at location E. ORK CONTROL OPERATORS SUPERVISOR IMPRESSION: 1. Stable small right and moderate-sized left pleural effusions. 2. Airspace opacities in the mid and lower lung zones with improvement on the r ight, consistent with atelectasis versus pneumonia. 3. Cardiomegaly.
--- NOTE | ~2021-11-27 | XR_ITS ---
EXAMINATION: XR chest 1V portable DATE: 11/27/2021 10:37 INDICATION: Cough and weakness TECHNIQUE: frontal view of the chest was obtained. COMPARISON: Chest radiograph dated 11/06/2021 FINDINGS: Complete opacification of the left hemithorax. Increased interstitial pattern in the right perihilar region and streaky opacities in the right lower lung zone which could represent mild pulmonary edema, atelectasis or pneumonia. No pneumothorax or right-sided pleural effusion. The left side of the card iomediastinal silhouette is obscured. The right side is obscured by leftward rotation of the patient. Mitral annular calcification. Dual lead pacemaker seen with leads projecting over the expected locat ions of the right atrium and right ventricle. Multiple surgical clips project over the left axilla. 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 IMPRESSION: 1. Increase in now complete opacification of the left hemithorax consistent with enlarging unilateral large left pleural effusion with associated collapse of the left lung. Underlying pneumonia or malig fabienne not excludable. 2. Mild increased right perihilar interstitial pattern and streaky opacities at the right lower lung zones which could represent mild pulmonary edema, atelectasis or pneumonia. Reviewed, dictated and finalized at location A. OM PAINTER IMPRESSION: 1. Increase in now complete opacification of the left hemithorax consistent wit h enlarging unilateral large left pleural effusion with associated collapse of the left lung. Underlying pneumonia or malignancy not excludable. 2. Mild increased right perihilar interstitial pattern and streaky opacities at the right lower lung zones which could represent mild pulmonary edema, atelect asis or pneumonia.
--- NOTE | ~2021-11-27 | XR_ITS ---
EXAMINATION: XR chest 1V portable DATE: 11/29/2021 06:05 INDICATION: Respiratory failure. TECHNIQUE: A single frontal view of the chest was obtained. COMPARISON: Chest single view 11/27/2021 FINDINGS: There are interstitial and airspace opacities throughout the lungs bilaterally. There are s mall right and moderate-sized left pleural effusions. No pneumothorax. Cardiomegaly is noted. There i s a left chest wall pacer with leads in the right atrium and right ventricle. A right internal jugula r central venous catheter is seen with tip in the right atrium. There are surgical clips in left axil la. IMPRESSION: 1. Small right and moderate-sized left pleural effusions with improvement on the left status post tho racentesis. 2. Diffuse lung disease with worsening on the right, consistent with pulmonary edema versus pneumonia . 3. Cardiomegaly. Reviewed, dictated and finalized at location E. ONARY SPECIALIST IMPRESSION: 1. Small right and moderate-sized left pleural effusions with improvement on th e left status post thoracentesis. 2. Diffuse lung disease with worsening on the right, consistent with pulmonary edema versus pneumonia. 3. Cardiomegaly.
--- NOTE | ~2021-11-27 | XR_ITS ---
EXAMINATION: XR abdomen obstructive series EXAM DATE: 12/08/2021 10:09 INDICATION: Abdominal tenderness and distention . TECHNIQUE: Frontal upright projection of the upper abdomen, frontal projection of the lower abdomen f or interpretation. FINDINGS: Opacified left hemithorax. Small right pleural effusion. Dense mitral annular calcificatio ns. Multi lead pacemaker/AICD device. No evidence of free intraperitoneal gas. Moderate amount of col onic stool and gas. Moderate lumbar scoliosis. No small bowel obstruction suspected. IMPRESSION: 1. Moderately distended air-filled colon. Reviewed, dictated and finalized at location B. DE SALES PERSON
--- NOTE | ~2021-11-27 | XR_ITS ---
EXAMINATION: XR_CXR1VTHORA_CR DATE: 12/10/2021 10:57 INDICATION: Left pleural effusion. TECHNIQUE: A single frontal view of the chest was obtained. COMPARISON: Chest single view 12/08/2021 FINDINGS: There is near-complete opacification of left hemithorax. There is a small right pleural eff usion. There are interstitial opacities throughout right lung. There are airspace opacities in right mid and lower lung zones. No pneumothorax. The cardiomegaly is noted. There is a left chest wall pace r with leads in the right atrium and right ventricle. Surgical clips overlie left axilla. A right int ernal jugular central venous catheter is seen with tip in the right atrium. IMPRESSION: 1. Complete opacification of left hemithorax, likely a combination of pleural effusion and atelectasi s. 2. Stable diffuse right lung disease, consistent with pulmonary edema versus pneumonia. 3. Worsened small right pleural effusion. 4. Cardiomegaly. Reviewed, dictated and finalized at location A. LESS TECHNICIAN IMPRESSION: 1. Complete opacification of left hemithorax, likely a combination of pleural e ffusion and atelectasis. 2. Stable diffuse right lung disease, consistent with pulmonary edema versus pn eumonia. 3. Worsened small right pleural effusion. 4. Cardiomegaly.
--- NOTE | ~2021-11-27 | XR_ITS ---
EXAMINATION: XR chest 1V portable DATE: 11/30/2021 06:18 INDICATION: Respiratory failure. TECHNIQUE: A single frontal view of the chest was obtained. COMPARISON: Chest single view 11/29/2021, chest CT 11/27/2021 FINDINGS: There is a large left pleural effusion with near complete opacification of left hemithorax. There is a small right pleural effusion. There is a diffuse interstitial pattern in right lung. Ther e are airspace opacities in right mid and lower lung zones. No pneumothorax. Cardiomegaly is noted. T here is a left chest wall pacer with leads in the right atrium and right ventricle. There are surgica l clips in left axilla. A right internal jugular central venous catheter is seen with tip in the righ t atrium. IMPRESSION: 1. Small right and large left pleural effusions with worsening on the left. 2. Stable diffuse right lung disease, consistent with pulmonary edema versus pneumonia. 3. Cardiomegaly. Reviewed, dictated and finalized at location E. COVERER IMPRESSION: 1. Small right and large left pleural effusions with worsening on the left. 2. Stable diffuse right lung disease, consistent with pulmonary edema versus pn eumonia. 3. Cardiomegaly.
--- NOTE | ~2021-11-27 | XR_ITS ---
EXAMINATION: XR chest 1V portable EXAM DATE: 12/05/2021 13:59 INDICATION: Respiratory failure. TECHNIQUE: Portable AP frontal chest x-ray was obtained. Comparison is made to prior examination from 12/04/2021. FINDINGS: Right-sided IJ venous line in position. There is a dual lead pacemaker/AICD seen with leads projecting over the expected locations of the right atrial appendage and right ventricle. Probabl e moderate left, small to moderate pleural effusions. There is cardiomegaly and pulmonary vascular co ngestion. Bilateral edema or pneumonia. There is no pneumothorax suspected. The bones are osteopenic. There are bony degenerative changes. Accounting for differences in technique, there is no signific ant interval change. IMPRESSION: No interval change in cardiomegaly, congestion, moderate left and small to moderate pleur al effusions, bilateral edema or pneumonia. Reviewed, dictated and finalized at location B. T METAL LAYOUT WORKER IMPRESSION: No interval change in cardiomegaly, congestion, moderate left and s mall to moderate pleural effusions, bilateral edema or pneumonia.
--- NOTE | ~2021-11-27 | XR_ITS ---
XR chest 1V portable 12/02/2021 05:45 Indication: Respiratory failure Procedure: AP portable chest Comparison: Comparison to multiple prior studies sequentially, with oldest reviewed study dated 11/27. Findings: Right IJ central line tip at the cavoatrial junction. Pacemaker leads are stable. There is complete opacification of the left hemithorax. Small right pleural effusion. Diffuse right-sided airs pace disease. No pneumothorax. Bipolar pacemaker leads are stable. Impression: 1: Stable diffuse airspace disease of the right hemithorax which may represent pneumonia, edema or AR DS. 2: Stable complete opacification of the left hemithorax which may represent atelectasis and/or large effusion. Reviewed, dictated and finalized at location A. LIC FABRICATOR Impression: 1: Stable diffuse airspace disease of the right hemithorax which may represent pneumonia, edema or ARDS. 2: Stable complete opacification of the left hemithorax which may represent ate lectasis and/or large effusion.
--- NOTE | ~2021-11-27 | XR_ITS ---
EXAMINATION: XR chest 1V portable DATE: 12/01/2021 06:13 INDICATION: Respiratory failure. TECHNIQUE: A single frontal view of the chest was obtained. COMPARISON: Chest single view 11/30/2021, chest CT 11/27/2021 FINDINGS: There is complete opacification of left hemithorax. There is a small right pleural effusion . There are airspace opacities in right mid and lower lung zones. No pneumothorax. The heart size is obscured. There is a left chest wall pacer with leads in the right atrium and right ventricle. A righ t internal jugular central venous catheter is seen with tip in the right atrium. There are surgical c lips in left axilla. IMPRESSION: 1. Worsened complete opacification of left hemithorax, likely a large pleural effusion. 2. Small right pleural effusion. 3. Stable airspace opacities in right mid and lower lung zones, consistent with pneumonia without or with superimposed pulmonary edema. Reviewed, dictated and finalized at location E. T CONTRACT CLERK IMPRESSION: 1. Worsened complete opacification of left hemithorax, likely a large pleural e ffusion. 2. Small right pleural effusion. 3. Stable airspace opacities in right mid and lower lung zones, consistent with pneumonia without or with superimposed pulmonary edema.
--- NOTE | ~2021-11-27 | XR_ITS ---
EXAMINATION: XR_CXR1VTHORA_CR DATE: 12/04/2021 11:05 INDICATION: Left pleural effusion TECHNIQUE: frontal view of the chest was obtained. COMPARISON: Chest radiograph dated 12/03/2021 FINDINGS: Decreasing opacities in the left mid to lower lung zone consistent with decrease in size of a now sma ll to moderate left pleural effusion post left thoracentesis. Persistent basilar predominant opacitie s throughout the right hemithorax consistent with small to moderate right pleural effusion. Opacities in the right mid and bilateral lower lung zones could represent associated atelectasis or pneumonia. Cardiomegaly. Right internal jugular central venous catheter with distal tip in the high right atriu m. Dual lead pacemaker seen with leads projecting over the expected locations of the right atrium and right ventricle. Surgical clips at the lateral left chest wall/axilla. Severe bilateral glenohumeral osteoarthritis. IMPRESSION: 1. Bilateral small to moderate-sized pleural effusions with interval decrease in the left post thorac entesis. 2. Opacities in the right mid and bilateral lower lung zones which could represent associated atelect asis and/or pneumonia. 3. Cardiomegaly. Reviewed, dictated and finalized at location A. S OFFICER IMPRESSION: 1. Bilateral small to moderate-sized pleural effusions with interval decrease i n the left post thoracentesis. 2. Opacities in the right mid and bilateral lower lung zones which could repres ent associated atelectasis and/or pneumonia. 3. Cardiomegaly.
--- NOTE | ~2021-11-27 | US_ITS ---
EXAMINATION: US thoracentesis DATE: 12/10/2021 11:06 INDICATION: pleural effusion TECHNIQUE: The procedure and its risks, benefits, and alternatives were discussed with Rupa Bella . Potential risks discussed included bleeding, infection, and pneumothorax. She understood the risks and agreed to proceed. The skin was prepped and draped in sterile fashion. 1% lidocaine was used for local anesthesia. Under ultrasound guidance, a 5 Fr catheter with trochar was advanced into the left pleural effusion. Fluid was aspirated. The catheter was removed, and a dressing was applied. There we re no immediate complications. FINDINGS: Ultrasound images demonstrate a left pleural effusion and the catheter within the fluid. IMPRESSION: 1. Successful ultrasound-guided thoracentesis yielding 950 mL of clear, yellow fluid. Reviewed, dictated and finalized at location A. NESS APPLICATIONS SPECIALIST
--- NOTE | ~2021-11-27 | XR_ITS ---
XR chest 1V portable 12/03/2021 06:15 Indication: Respiratory failure Procedure: AP portable chest Comparison: Comparison to multiple prior studies sequentially, with oldest reviewed study dated 11/2021. Findings: Cardiomegaly with bilateral airspace disease. Bilateral pleural effusions. Central venous c atheter tip in the right atrium. No pneumothorax. Impression: 1: Cardiomegaly with bilateral airspace disease which may represent edema or pneumonia. 2: Bilateral pleural effusions. Reviewed, dictated and finalized at location A. TING ENTRYMAN Impression: 1: Cardiomegaly with bilateral airspace disease which may represent edema or pn eumonia. 2: Bilateral pleural effusions.
--- NOTE | ~2021-11-27 | XR_ITS ---
XR chest 1V portable DATE: 12/08/2021 10:09 INDICATION: Left pleural effusion TECHNIQUE: Portable AP chest on December 08, 2021 1002 hours COMPARISON: December 05, 2021 portable AP chest at 1352 hours FINDINGS: There is complete opacification of the left hemithorax and shift of the heart mediastinum l eftward, consistent with left lung atelectasis. Pleural effusion is not excluded. There is mild right pleural effusion. There is pulmonary vascular congestion and redistribution and d iffuse pulmonary interstitial prominence on the right, relatively central and lower lung right infilt rate, suggesting congestive heart failure and pulmonary edema. Pneumonia is not excluded. Right internal jugular Port-A-Cath catheter tip overlies the right atrium. Left-sided dual-lead pacemaker device, leads overlying right atrium and right ventricle. Aortic arch calcification. Numerous surgical clips overlie the left axillary area. There is diffuse osteopenia. There is severe osteoarthritic change at the left glenohumeral joint and possible anterior dislocation; consider left shoulder radiographs for further evaluation as clinical ly appropriate. IMPRESSION: Complete opacification of the left hemithorax and leftward shift of heart and mediastinum consistent with left lung atelectasis in the colon obstructing endobronchial lesion should be consid ered Congestive changes, including mild right pleural effusion, probable right pulmonary edema. Pneumonia is not excluded. Cannot exclude anterior dislocation of left glenohumeral joint Diffuse osteopenia Reviewed, dictated and finalized at location A. LOT MANAGER IMPRESSION: Complete opacification of the left hemithorax and leftward shift of heart and mediastinum consistent with left lung atelectasis in the colon obstr ucting endobronchial lesion should be considered Congestive changes, including mild right pleural effusion, probable right pulmo nary edema. Pneumonia is not excluded. Cannot exclude anterior dislocation of left glenohumeral joint Diffuse osteopenia
--- NOTE | ~2021-11-27 | XR_ITS ---
EXAMINATION: XR chest 1V portable DATE: 12/12/2021 05:51 INDICATION: Left pleural effusion. TECHNIQUE: A single frontal view of the chest was obtained. COMPARISON: Chest single view 12/11/2021 FINDINGS: There is complete opacification of left hemithorax. There are airspace opacities in all rig ht lung zones with a perihilar and lower lung predominance. There is a moderate-sized right pleural e ffusion. No pneumothorax. There is a left chest wall pacer with leads in the right atrium and right v entricle. The heart size is obscured. There are surgical clips in left axilla. A right internal jugul ar central venous catheter is seen with tip in the right atrium. IMPRESSION: 1. Persistent complete opacification of left hemithorax, likely a combination of pleural effusion and atelectasis. 2. Worsened right lung disease, consistent with pulmonary edema versus pneumonia. 3. Worsened moderate-sized right pleural effusion. Reviewed, dictated and finalized at location A. GER ENVIRONMENTAL IMPRESSION: 1. Persistent complete opacification of left hemithorax, likely a combination o f pleural effusion and atelectasis. 2. Worsened right lung disease, consistent with pulmonary edema versus pneumoni a. 3. Worsened moderate-sized right pleural effusion.
--- NOTE | ~2021-11-27 | CT_ITS ---
EXAMINATION: CT diagnostic chest wo con DATE: 11/27/2021 16:41 INDICATION: Large pleural effusion TECHNIQUE: Computed tomography (CT) of the chest was performed without intravenous contrast. The dose -length product (DLP) was 375.18 mGy-cm. 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 COMPARISON: 11/02/2021 FINDINGS: There is a large left pleural effusion effusion. There is complete atelectasis of the left lung. A small right pleural effusion is present. Patchy airspace opacities of the right lung have inc reased. Pneumomediastinum is noted. There is a moderate-sized sliding hiatal hernia. Cardiomegaly is noted. A right internal jugular catheter ends with its tip in the proximal right atrium. There is mod erate thoracic spondylosis. Cholelithiasis is noted. IMPRESSION: 1. Large left pleural effusion. 2. Complete atelectasis of the left lung, likely combination of mucous plugging and pleural effusion. 3. Increasing patchy opacities of the right lung, likely infectious. Reviewed, dictated and finalized at location B. [employer]
--- NOTE | ~2021-11-27 | US_ITS ---
EXAMINATION: US renal BI DATE: 11/28/2021 15:46 INDICATION: Acute renal insufficiency TECHNIQUE: Multiple ultrasound grayscale images of the kidneys were obtained. COMPARISON: None. FINDINGS: The right kidney measures 10.4 x 4.9 x 4.5 cm. The left kidney measures 9.7 x 4.9 x 5.7 cm. The kidne ys demonstrate normal echogenicity. There is no hydronephrosis in either kidney. No stones identifie d. Hunter catheter within the decompressed bladder which limits evaluation. IMPRESSION: 1. Normal kidneys without hydronephrosis. Reviewed, dictated and finalized at location A. MATION CLERK
--- NOTE | ~2021-11-27 | XR_ITS ---
EXAMINATION: XR chest 1V portable DATE: 12/11/2021 05:47 INDICATION: Left pleural effusion. TECHNIQUE: A single frontal view of the chest was obtained. COMPARISON: Chest single view 12/10/2011 FINDINGS: There is complete opacification of left hemithorax. There are airspace opacities in all rig ht lung zones with a basilar predominance. There is a small right pleural effusion. No pneumothorax. The heart size is obscured. There is a left chest wall pacer with leads in the right atrium and right ventricle. A right internal jugular central venous catheter is seen with tip in the right atrium. Th ere are surgical clips in left axilla. IMPRESSION: 1. Persistent complete opacification of left hemithorax, likely a combination of pleural effusion and atelectasis. 2. Stable diffuse right lung disease, consistent with pulmonary edema versus pneumonia. 3. Stable small right pleural effusion. Reviewed, dictated and finalized at location A. RDS MANAGEMENT ANALYST IMPRESSION: 1. Persistent complete opacification of left hemithorax, likely a combination o f pleural effusion and atelectasis. 2. Stable diffuse right lung disease, consistent with pulmonary edema versus pn eumonia. 3. Stable small right pleural effusion.
--- NOTE | ~2021-11-27 | XR_ITS ---
EXAMINATION: XR chest port-a-cath/central DATE: 11/27/2021 16:20 INDICATION: Port catheter placement TECHNIQUE: frontal view of the chest was obtained. COMPARISON: Chest radiograph dated 11/27/2021 at 10:29 AM FINDINGS: Right internal jugular central venous catheter with distal tip in the right atrium. No pneumothorax o r right-sided pleural effusion. Persistent complete opacification of the left hemithorax. Pulmonary v ascular congestion is evident the right hemithorax. Mild perihilar and basilar opacities. The left si de of the cardiomediastinal silhouette is obscured. Mitral annular calcification. Dual lead pacemaker seen with leads projecting over the expected locations of the right atrium and right ventricle. 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 Multiple surgical clips at the left axilla. IMPRESSION: 1. No pneumothorax or right-sided pleural effusion post placement of a right internal jugular central venous catheter with distal tip in the right atrium. 2. Persistent complete opacification of the left hemithorax consistent with unilateral large left ple ural effusion and associated atelectasis. Underlying pneumonia or malignancy not excludable. 3. Pulmonary vascular congestion and mild perihilar and basilar opacities in the right hemithorax mos t likely related to mild pulmonary edema with differential including atelectasis and pneumonia. Reviewed, dictated and finalized at location A. P CARRIER OPERATOR IMPRESSION: 1. No pneumothorax or right-sided pleural effusion post placement of a right in ternal jugular central venous catheter with distal tip in the right atrium. 2. Persistent complete opacification of the left hemithorax consistent with uni lateral large left pleural effusion and associated atelectasis. Underlying pneu monia or malignancy not excludable. 3. Pulmonary vascular congestion and mild perihilar and basilar opacities in th e right hemithorax most likely related to mild pulmonary edema with differentia l including atelectasis and pneumonia.
--- NOTE | 2021-11-27 10:15 | ECG_ITS ---
Measurements Intervals [place] Rate: 75 P: 140 VT: 217 QRS: 104 QRSD: 190 T: -16 QT: 364 QTc: 406 Interpretive Statements ELECTRONIC ATRIAL PACEMAKER VENTRICULAR BIGEMINY RIGHT AXIS DEVIATION RIGHT BUNDLE BRANCH BLOCK MINIMAL Q WAVES- SEPTAL LEADS BASELINE ARTIFACT- II, III, V1 ABNORMAL ECG Electronically Signed On 11-27-2021 11:26:01 [employer] by Ronald Gonzalez D.O.
[2021-11-27 10:26] LABS: Basophils Absolute Auto 0.1 K/mm3 (0.0-0.1); Basophils Percent Auto 0.4 % (0.2-1.2); Hematocrit 33.6 % (37.0-47.0); Hemoglobin 10.1 g/dL (12.0-15.0); Immature Granulocyte Absolute 0.12 K/mm3 (0.00-0.031); Immature Granulocyte Percent A 0.7 % (0-0.5); Lymphocytes Absolute Auto 0.67 K/mm3 (0.9-3.2); Lymphocytes Percent Auto 3.7 % (18.3-44.2); Mean Corpuscular HGB Conc 30.1 g/dl (32-36); Mean Corpuscular Hemoglobin 27.9 pg (26-34); Mean Corpuscular Volume 92.8 fl (80-100); Mean Platelet Volume 10.9 fl (7.4-10.4); Monocytes Absolute Auto 1.3 K/mm3 (0.1-0.6); Neutrophils Absolute Auto 15.9 K/mm3 (1.3-6.7); Neutrophils Percent Auto 88.2 % (45.5-73.1); Platelet Count Result 445 k/mm3 (150-375); Red Blood Count 3.62 M/mm3 (4.2-5.4); Red Cell Distribution Width 17.1 % (11.5-14.5); White Blood Count 18.1 K/mm3 (4.5-10.0)
[2021-11-27 11:06] LABS: Add Urine Microscopic? YES; Amorphous Sediment Urine Few; Appearance Urine Cloudy (Clear); Bacteria Urine Trace /hpf; Bilirubin Urine Negative (Negative); Color Urine Amber (Yellow); Glucose Urine UA Negative (Negative); Hyaline Casts Urine 15-19 /lpf; Ketones Urine Negative (Negative); Leukocyte Esterase Ur Trace LEU/UL (Negative); Mucus Urine Rare /lpf; Nitrate Urine Negative (Negative); Protein Urine Negative (Negative); Specific Grav Ur 1.021 (1.001-1.035); Squamous Epithelial Cell Urine Many /hpf (Few); Urobilinogen Urine Negative mg/dL (<2.0)
[2021-11-27 11:14] LABS: Blood Urine Negative (Negative)
[2021-11-27 11:28] LABS: Alanine Aminotransferase 14 U/L (4-35); Albumin Level 3.6 g/dL (3.5-5.1); Alkaline Phosphatase 68 U/L (38-126); Anion Gap 14 mmol/L (8-16); Aspartate Amino Transferase 24 U/L (14-36); Bilirubin,Total 0.3 mg/dL (0.2-1.3); Blood Urea Nitrogen 77 mg/dL (7-17); Calcium 9.6 mg/dL (8.4-10.2); Carbon Dioxide 19 mmol/L (22-30); Chloride 103 mmol/L (98-107); Estimated CRCL calculation 24 ml/min; Estimated Glomerular Filt Rate 29; Glucose 190 mg/dL (65-110); Potassium 4.6 mmol/L (3.4-5.0); Sodium 136 mmol/L (137-145)
[2021-11-27] MEDS: SODIUM CHLORIDE 0.9% IV 1,000 ML 999 ML IV CONT ×2 (11:44→12:09)
[2021-11-27 13:26] LABS: Lactic Acid Reflex 2.2 mmol/L (0.7-2.1)
[2021-11-27 13:26] LABS: NT Pro B Type Natriuretic Pept 3440 pg/mL (5-100)
--- NOTE | 2021-11-27 14:17 | PM.IMHP ---
H&P: HPI History of Present Illness Date/Time: 11/27/21 14:17 this is a 80-year-old female patient with medical history of hypertension, diabetes, congestive heart failure. The patient had been complaining of weakness for the last 4 days. The patient was diagnosed with COVID on 11/24/2021 and has been having with increasing weakness since then. The patient was found to be short of breath with SpO2 84% on room air today. She was placed on oxygen at 2 L when she was brought into the emergency room and her at oxygen levels came up to 94-96%. The patient was found to be hypotensive upon arrival. Her H&H is 10.1 and 33.6. White count 18.1. Her creatinine is now 1.7 from 0.6. Sodium 136. Glucose 190. Lactic of 2.2. Chest x-ray was read as the following 1. Increase in now complete opacification of the left hemithorax consistent with enlarging unilateral large left pleural effusion with associated collapse of the left lung. Underlying pneumonia or malignancy not excludable. 2. Mild increased right perihilar interstitial pattern and streaky opacities at the right lower lung zones which could represent mild pulmonary edema, atelectasis or pneumonia. After the central line was placed to the right IJ a repeat chest x-ray was read as the following 1. No pneumothorax or right-sided pleural effusion post placement of a right internal jugular central venous catheter with distal tip in the right atrium. 2. Persistent complete opacification of the left hemithorax consistent with unilateral large left pleural effusion and associated atelectasis. Underlying pneumonia or malignancy not excludable. 3. Pulmonary vascular congestion and mild perihilar and basilar opacities in the right hemithorax most likely related to mild pulmonary edema with differential including atelectasis and pneumonia. I spoke with Interventional Radiology and they stated that it typically takes 5 days of being off of Plavix prior to getting a thoracentesis. This suggested a CT scan so that is what I did and this is results. . Large left pleural effusion. 2. Complete atelectasis of the left lung, likely combination of mucous plugging and pleural effusion. 3. Increasing patchy opacities of the right lung, likely infectious. I spoke with the permaculture contractor about the case and was also notified per ED physician. The patient will be admitted to intensive care unit. The patient initially was given 4 L of fluid emergency room. Patient was started on vancomycin and cefepime. Blood cultures are pending. The patient is on 2 L per nasal cannula. COVID was negative here today. The patient is being admitted to inpatient status on the date of service 11/27/2021. Chief Complaint: Shortness of breath Review of Systems Review of Systems: All systems reviewed & are unremarkable except as noted in HPI and below Constitutional: Constitutional: Reports as per HPI and Reports no additional constitutional complaints Eyes: Eyes: Reports as per HPI and Reports no additional eye complaints ENT: Reports system reviewed and no additional complaints, except as documented and Reports Normal hearing present Cardiovascular: Cardiovascular: Reports no additional cardiovascular complaints Respiratory: Respiratory: Reports no additional respiratory complaints and Reports no additional respiratory complaints Gastrointestinal: Gastrointestinal: Reports as per HPI and Reports no additional gastrointestinal complaints Musculoskeletal: Musculoskeletal: Reports no additional musculoskeletal complaints Integumentary/Breasts: Skin/Breast: Reports system reviewed and no additional complaints, except as docu and Reports as per HPI Neurologic: Reports system reviewed and no additional complaints, except as documented, Reports as per HPI and Reports Normal hearing present Psychiatric: Psychiatric: Reports no additional psychiatric complaints and Reports as per HPI Endocrine: Endocrine: Reports no additional endocrine complaints Hematologi
[2021-11-27] MEDS: SODIUM CHLORIDE 0.9% IV 250 ML 999 ML (14:19)
[2021-11-27 14:34] LABS: Partial Thromboplastin Time 29.9 SECONDS (22.3-36.8)
--- NOTE | 2021-11-27 14:38 | PC.NURSE ---
Addendum entered by Dimitry Hobbs RN 11/27/21 14:41: SIMÓN Marcial aware. Original Note: Ultrasound states they cannot do the thoracentesis because patient is on Plavix. Spoke to senior living, they state patient has not taken her medications for the last 2 days. Ultrasound aware and they state there is a 5 day hold on the procedure due to the patient taking Plavix.
[2021-11-27 16:13] LABS: Reflex Lactic Acid Yes or No Add Lactic
[2021-11-27] MEDS: NOREPINEPHRINE 8 MG/D5W 250 ML 8 MG/250 ML BAG 9.38 MG IV CONT (16:18)
--- NOTE | 2021-11-27 16:24 | ED.GENADULT ---
HPI - General Adult General Chief complaint: Weakness Stated complaint: LETHARGY, COVID +11/24/21 Time Seen by Provider: 11/27/21 10:20 Source: patient Mode of arrival: EMS Limitations: altered mental status History of Present Illness HPI narrative: 80-year-old with a history of hypertension, diabetes, CHF presently residing in a detention was sent for marked weakness for last 4 days. Patient has been diagnosed with Covid on 11/24/2021 and ever since then she has been having marked weakness. And this morning she was found to be short of breath with SPO2 of 84% on room air. She was placed on 2 L which brought her O2 saturations to 94 to 96%. However upon arrival she was found to be hypotensive. No history of nausea, vomiting or diarrhea. Onset (ago): day(s) (4) Severity: moderate Relieving factors: none Exacerbating factors: none Associated symptoms: shortness of breath Related Data Home Medications Medication Instructions Recorded Confirmed Incruse Ellipta 1 inh INHALATION DAILY 11/02/21 11/02/21 albuterol sulfate 2 puff INHALATION Q4H PRN 11/02/21 11/02/21 ascorbic acid (vitamin C) 250 mg PO BID 11/02/21 11/02/21 aspirin 81 mg PO DAILY 11/02/21 11/02/21 atorvastatin 40 mg PO HS 11/02/21 11/02/21 calcium carbonate 500 mg PO DAILY 11/02/21 11/02/21 clopidogrel 75 mg PO DAILY 11/02/21 11/02/21 coenzyme Q10 100 mg PO BID 11/02/21 11/02/21 cyanocobalamin (vitamin B-12) 100 mcg PO DAILY 11/02/21 11/02/21 gabapentin 200 mg PO BID 11/02/21 11/02/21 glipizide 5 mg PO DAILY 11/02/21 11/02/21 glucosamine-chondroitin 3 tablet PO BID 11/02/21 11/02/21 levothyroxine 150 mcg PO DAILY 11/02/21 11/02/21 lisinopril 10 mg PO DAILY 11/02/21 11/02/21 mesalamine 1.2 g PO BID 11/02/21 11/02/21 nitroglycerin 0.4 mg SUBLINGUAL Q5M PRN 11/02/21 11/02/21 oxcarbazepine 300 mg PO BID 11/02/21 11/02/21 pyridoxine (vitamin B6) 100 mg PO DAILY 11/02/21 11/02/21 tetrahydrozoline [Visine] 2 drp EACH EYE TID 11/02/21 11/02/21 Allergies Allergy/AdvReac Type Severity Reaction Status Date / Time amoxicillin [From Augmentin] Allergy Unknown Verified 11/27/21 10:11 azithromycin Allergy Unknown Verified 11/27/21 10:11 celecoxib [From Celebrex] Allergy Unknown Verified 11/27/21 10:11 ciprofloxacin [From Cipro] Allergy Unknown Verified 11/27/21 10:11 clavulanic acid Allergy Unknown Verified 11/27/21 10:11 [From Augmentin] codeine Allergy Unknown Verified 11/27/21 10:11 Corticosteroids Allergy Unknown Verified 11/27/21 10:11 (Glucocorticoids) dill oil Allergy Unknown Verified 11/27/21 10:11 divalproex sodium Allergy Unknown Verified 11/27/21 10:11 [From Depakote] doxycycline Allergy Unknown Verified 11/27/21 10:11 erythromycin base Allergy Unknown Verified 11/27/21 10:11 hydralazine Allergy Unknown Verified 11/27/21 10:11 hydrochlorothiazide Allergy Unknown Verified 11/27/21 10:11 ipratropium [From Atrovent] Allergy Unknown Verified 11/27/21 10:11 lithium Allergy Unknown Verified 11/27/21 10:11 magnesium Allergy Unknown Verified 11/27/21 10:11 mesalamine [From Asacol] Allergy Unknown Verified 11/27/21 10:11 NSAIDS (Non-Steroidal Allergy Unknown Verified 11/27/21 10:11 Anti-Inflamma petrolatum,white Allergy Unknown Verified 11/27/21 10:11 [From Vaseline] rahul hips Allergy Unknown Verified 11/27/21 10:11 Koweyrf-LRO-GnH Reductase Allergy Unknown Verified 11/27/21 10:11 Inhibitor Sulfa (Sulfonamide Allergy Unknown Verified 11/27/21 10:11 Antibiotics) tramadol Allergy Unknown Verified 11/27/21 10:11 triamcinolone Allergy Unknown Verified 11/27/21 10:11 diuretic Allergy Unknown Uncoded 11/27/21 10:11 Review of Systems Review of Systems: ROS unobtainable: Yes unobtainable due to mental status PMFSH Past Medical History Medical History Chronic respiratory failure with hypoxia, on home oxygen therapy Congestive heart failure Diabetic peripheral neuropathy H
[2021-11-27] MEDS: SODIUM CHLORIDE 0.9% IV 1,000 ML 100 ML IV CONT (17:05)
--- NOTE | 2021-11-27 18:52 | ADMGEN ---
This patient, Isela Bella, was admitted to Intensive Care Unit-5. Patient/family oriented to hospital policies and general routines including ID bracelet, bed and alarms, visiting hours, pain management, procedures, bathroom and other care routines, personal items, smoking policy, room service/diet, and visiting hours. Information on how to activate the Rapid Response Team has been discussed. Patient/Family are encouraged to report perceived risks to care and to ask questions if they do not understand what they are told or what they should do.
[2021-11-27 19:38] LABS: Lactic Acid 0.6 mmol/L (0.7-2.1)
[2021-11-27] MEDS: HEPARIN SODIUM 5,000 UNITS/ML VIAL 5000 UNITS SUB-Q (19:52)
[2021-11-27] MEDS: CENTRAL LINE FLUSH 10 ML IV PUSH (19:52)
[2021-11-27 21:12] LABS: Glucose Point of Care 165 mg/dl (65-105)
[2021-11-28] VITALS (22 sets, daily range): BP systolic 85–138; BP diastolic 21–81; PULSE 65–100; RESP 16–30; TEMP 36.7–37.1; O2SAT 86–99
[2021-11-28] MEDS: SODIUM CHLORIDE 0.9% IV 1,000 ML 100 ML IV CONT ×2 (03:17→13:21)
[2021-11-28] MEDS: CENTRAL LINE FLUSH 10 ML IV PUSH ×4 (03:17→21:55)
[2021-11-28 06:10] LABS: Basophils Absolute Auto 0.1 K/mm3 (0.0-0.1); Basophils Percent Auto 0.5 % (0.2-1.2); Eosinophils Absolute Auto 0.1 K/mm3 (0-0.3); Eosinophils Percent Auto 0.7 % (0-4.4); Hematocrit 33.2 % (37.0-47.0); Hemoglobin 9.9 g/dL (12.0-15.0); Immature Granulocyte Percent A 0.6 % (0-0.5); Lymphocytes Absolute Auto 0.53 K/mm3 (0.9-3.2); Lymphocytes Percent Auto 3.2 % (18.3-44.2); Mean Corpuscular HGB Conc 29.8 g/dl (32-36); Mean Corpuscular Hemoglobin 27.1 pg (26-34); Monocytes Absolute Auto 1.2 K/mm3 (0.1-0.6); Neutrophils Absolute Auto 14.6 K/mm3 (1.3-6.7); Platelet Count Result 435 k/mm3 (150-375); Red Blood Count 3.65 M/mm3 (4.2-5.4); Red Cell Distribution Width 17.1 % (11.5-14.5); White Blood Count 16.6 K/mm3 (4.5-10.0)
[2021-11-28 06:13] LABS: Alanine Aminotransferase 12 U/L (4-35); Albumin Level 3.1 g/dL (3.5-5.1); Alkaline Phosphatase 73 U/L (38-126); Anion Gap 10 mmol/L (8-16); Aspartate Amino Transferase 21 U/L (14-36); Bilirubin,Total 0.2 mg/dL (0.2-1.3); Blood Urea Nitrogen 63 mg/dL (7-17); Carbon Dioxide 19 mmol/L (22-30); Chloride 111 mmol/L (98-107); Estimated CRCL calculation 36 ml/min; Estimated Glomerular Filt Rate 48; Glucose 194 mg/dL (65-110); Magnesium 1.9 mg/dL (1.6-2.3); Potassium 3.9 mmol/L (3.4-5.0); Sodium 140 mmol/L (137-145)
[2021-11-28 06:20] LABS: CRP 13.5 mg/dL (<1.0)
[2021-11-28 06:31] LABS: Hemoglobin A1C 6.7 % (<5.7)
[2021-11-28 08:03] LABS: Free T4 Free Thyroxine Reflex 0.38 ng/dL (0.78-2.19)
[2021-11-28] MEDS: ALBUMIN HUMAN 5% 25 GM/500 ML BTL IV CONT (09:17)
[2021-11-28 09:29] LABS: Glucose Point of Care 176 mg/dl (65-105)
[2021-11-28] MEDS: NOREPINEPHRINE 8 MG/D5W 250 ML 8 MG/250 ML BAG 7.5 MG IV CONT (12:31)
--- NOTE | 2021-11-28 14:13 | WPDCNINT ---
Assessment and Plan Assessment and plan (1) Acute kidney injury: Code(s): N17.9 - Acute kidney failure, unspecified Status: Acute Assessment and Plan: Likely secondary to septic shock Continue IV fluids Monitor urine output electrolytes and creatinine Will order further a workup including imaging if creatinine does not resolve with fluids (2) Large pleural effusion: Code(s): J90 - Pleural effusion, not elsewhere classified Status: Acute Assessment and Plan: IR consulted for thoracentesis on left side Pleural fluid studies ordered (3) Septic shock: Code(s): A41.9 - Sepsis, unspecified organism; R65.21 - Severe sepsis with septic shock Status: Acute Assessment and Plan: Secondary to pneumonia and UTI Blood and urine cultures ordered Conservative IV fluids due to history of CHF and recent COVID diagnosis Levophed titration Add albumin Continue vancomycin and cefepime (4) Pneumonia: Qualifiers: Laterality: left Lung location: unspecified part of lung Pneumonia type: due to unspecified organism Qualified Code(s): J18.9 - Pneumonia, unspecified organism Code(s): J18.9 - Pneumonia, unspecified organism Status: Acute Assessment and Plan: See above (5) Type 2 diabetes mellitus: Code(s): E11.9 - Type 2 diabetes mellitus without complications Status: Chronic Assessment and Plan: Sliding scale insulin (6) Congestive heart failure: Code(s): I50.9 - Heart failure, unspecified Status: Chronic Assessment and Plan: Hold Lasix at this time Conservative IV fluids (7) Chronic respiratory failure with hypoxia, on home oxygen therapy: Code(s): J96.11 - Chronic respiratory failure with hypoxia; Z99.81 - Dependence on supplemental oxygen Status: Acute Assessment and Plan: Patient is on oxygen at home and currently has atelectasis and left pleural effusion See management from both above She is on antibiotics for treatment for pneumonia (8) Atelectasis: Code(s): J98.11 - Atelectasis Status: Acute Assessment and Plan: Patient appears to have very weak cough Add CPT Frequent nasal suction (9) Hypothyroidism: Code(s): E03.9 - Hypothyroidism, unspecified Status: Chronic Assessment and Plan: Continue levothyroxine Additional Plan DVT prophylaxis -.SCDs for now. Start Lovenox after thoracentesis Code Status - Full Code Total Critical Care Time - 35 minutes Due to a high probability of clinically significant, life threatening deterioration, the patient required my highest level of preparedness to intervene emergently and I personally spent this critical care time directly and personally managing the patient. This critical care time included obtaining a history; examining the patient; pulse oximetry; ordering and review of studies; arranging urgent treatment with development of a management plan; evaluation of patient's response to treatment; frequent reassessment; and discussions with other providers. It was exclusive of separately billable procedures and treating other patients and teaching time. Please see Assessment and Plan section and the rest of the note for further information on patient assessment and treatment Back Gray Cloth Washer Consult Note Consult date: 11/28/21 HPI: Isela Bella is a 80 year old female Review of Systems Review of Systems: ROS unobtainable: Yes unobtainable due to medical condition and unobtainable due to mental status PMFSH Past Medical History Medical History Chronic respiratory failure with hypoxia, on home oxygen therapy Congestive heart failure Diabetic peripheral neuropathy Hyperlipidemia Hypertension Hypothyroidism Type 2 diabetes mellitus Ulcerative colitis Surgical History Surgical History History of bila
[2021-11-28] MEDS: SODIUM BICARBONATE 8.4% 150 MEQ in WATER, STERILE FOR INJECTION 950 ML 100 MEQ IV CONT (15:17)
[2021-11-28 15:58] LABS: pH Pleural Fluid 7.286 (7.210-7.500)
[2021-11-28 17:51] LABS: Glucose Point of Care 148 mg/dl (65-105)
[2021-11-28] MEDS: ALBUMIN HUMAN 25% 25 GM/100 ML 100 ML IVPB (17:59)
[2021-11-28] MEDS: ACETYLCYSTEINE 20% INHAL SOLN 800 MG/4 ML VIAL 200 MG INHALATION (20:25)
[2021-11-28] MEDS: ALBUTEROL SULFATE NEB 2.5 MG/0.5 ML INH INHALATION (20:25)
[2021-11-28 22:00] LABS: Glucose Point of Care 186 mg/dl (65-105)
[2021-11-29] VITALS (25 sets, daily range): BP systolic 88–126; BP diastolic 47–70; PULSE 66–101; RESP 20–26; TEMP 36.7–37.5; O2SAT 93–100
[2021-11-29] MEDS: ALBUMIN HUMAN 25% 25 GM/100 ML 100 ML IVPB ×4 (00:26→18:24)
[2021-11-29] MEDS: ALBUTEROL SULFATE NEB 2.5 MG/0.5 ML INH INHALATION ×3 (01:41→21:38)
[2021-11-29] MEDS: ACETYLCYSTEINE 20% INHAL SOLN 800 MG/4 ML VIAL 200 MG INHALATION ×3 (01:42→14:23)
--- NOTE | 2021-11-29 02:07 | PCRCNOTE ---
Patient c/o nausea after the aerosolized mucomyst / albuterol and the pneumatic vest treatment. Emesis bag at bedside along with yankeur in case it is needed. RN informed.
[2021-11-29] MEDS: SODIUM BICARBONATE 8.4% 150 MEQ in WATER, STERILE FOR INJECTION 950 ML 100 MEQ IV CONT (02:10)
[2021-11-29] MEDS: ONDANSETRON INJ 4 MG/2 ML VIAL IV PUSH ×2 (02:10→10:02)
--- NOTE | 2021-11-29 02:46 | PC.NURSE ---
0210 zofran 4mg given ivp for complaints of nausea after mucomyst treatment. No vomiting noted.
[2021-11-29] MEDS: CENTRAL LINE FLUSH 10 ML IV PUSH ×4 (04:41→20:56)
[2021-11-29 04:52] LABS: Hemoglobin 8.2 g/dL (12.0-15.0); Mean Corpuscular HGB Conc 29.3 g/dl (32-36); Mean Corpuscular Hemoglobin 27.3 pg (26-34); Mean Corpuscular Volume 93.3 fl (80-100); Platelet Count Result 312 k/mm3 (150-375); Red Cell Distribution Width 17.2 % (11.5-14.5); White Blood Count 7.8 K/mm3 (4.5-10.0)
[2021-11-29 05:09] LABS: Alanine Aminotransferase 11 U/L (4-35); Albumin Level 3.8 g/dL (3.5-5.1); Alkaline Phosphatase 53 U/L (38-126); Anion Gap 7 mmol/L (8-16); Aspartate Amino Transferase 19 U/L (14-36); Bilirubin,Total 0.3 mg/dL (0.2-1.3); Blood Urea Nitrogen 43 mg/dL (7-17); Calcium 9.1 mg/dL (8.4-10.2); Carbon Dioxide 25 mmol/L (22-30); Chloride 112 mmol/L (98-107); Estimated CRCL calculation 48 ml/min; Estimated Glomerular Filt Rate > 60; Glucose 205 mg/dL (65-110); Magnesium 1.8 mg/dL (1.6-2.3); Potassium 3.6 mmol/L (3.4-5.0); Sodium 144 mmol/L (137-145)
[2021-11-29 07:41] LABS: Glucose Point of Care 204 mg/dl (65-105)
[2021-11-29] MEDS: UMECLIDINIUM BROMIDE 62.5 MCG ELLIPTA 1 PUFF INHALATION (08:22)
[2021-11-29] MEDS: CALCIUM CARBONATE (OSCAL) 500 MG TABLET PO (09:43)
[2021-11-29] MEDS: LEVOTHYROXINE SODIUM 150 MCG TABLET PO (09:43)
[2021-11-29] MEDS: ASCORBIC ACID 250 MG TABLET PO ×2 (09:43→17:33)
[2021-11-29] MEDS: MESALAMINE 400 MG DELAYED RELEASE CAPSULE 800 MG PO ×3 (09:43→20:56)
[2021-11-29] MEDS: GABAPENTIN 100 MG CAPSULE 200 MG PO ×2 (09:43→17:33)
[2021-11-29] MEDS: PYRIDOXINE HCL 50 MG TABLET 100 MG PO (09:44)
[2021-11-29] MEDS: OXcarbazepine 300 MG TABLET PO ×2 (09:44→17:33)
[2021-11-29] MEDS: INSULIN ASPART (*BKC) 100 UNITS/ML SUB-Q (09:50)
--- NOTE | 2021-11-29 10:48 | WPDINTPN ---
Progress Note: A&P Assessment and Plan (1) Acute kidney injury: Code(s): N17.9 - Acute kidney failure, unspecified Status: Acute Assessment and Plan: Likely secondary to septic shock Creatinine has improved Hold further IV fluids at this time Monitor urine output electrolytes and creatinine (2) Large pleural effusion: Code(s): J90 - Pleural effusion, not elsewhere classified Status: Acute Assessment and Plan: 2/ Status post thoracentesis with blood 1 L fluid removal PH was adequate and other studies are pending (3) Septic shock: Code(s): A41.9 - Sepsis, unspecified organism; R65.21 - Severe sepsis with septic shock Status: Acute Assessment and Plan: Secondary to pneumonia and UTI Blood and urine cultures are negative till now Hold further IV fluids due to history of CHF and recent COVID diagnosis Levophed currently weaned Continue albumin Continue vancomycin and cefepime (4) Pneumonia: Qualifiers: Laterality: left Lung location: unspecified part of lung Pneumonia type: due to unspecified organism Qualified Code(s): J18.9 - Pneumonia, unspecified organism Code(s): J18.9 - Pneumonia, unspecified organism Status: Acute Assessment and Plan: See above (5) Type 2 diabetes mellitus: Code(s): E11.9 - Type 2 diabetes mellitus without complications Status: Chronic Assessment and Plan: Sliding scale insulin Add Lantus (6) Congestive heart failure: Code(s): I50.9 - Heart failure, unspecified Status: Chronic Assessment and Plan: Hold Lasix at this time Conservative IV fluids (7) Chronic respiratory failure with hypoxia, on home oxygen therapy: Code(s): J96.11 - Chronic respiratory failure with hypoxia; Z99.81 - Dependence on supplemental oxygen Status: Acute Assessment and Plan: Patient is on oxygen at home and currently has atelectasis and left pleural effusion See management from both above She is on antibiotics for treatment for pneumonia, had thoracentesis and is on CPD (8) Atelectasis: Code(s): J98.11 - Atelectasis Status: Acute Assessment and Plan: Patient appears to have very weak cough Continue CPT Frequent nasal suction p.r.n. (9) Hypothyroidism: Code(s): E03.9 - Hypothyroidism, unspecified Status: Chronic Assessment and Plan: Continue levothyroxine Additional Plan DVT prophylaxis -.SCDs for now. Start Lovenox after thoracentesis Code Status - Full Code Transfer out of ICU later today if she continues to stay off vasopressors Subjective Date/time seen: 11/29/21 10:48 Overnight events reviewed. Afebrile Continues to be on nasal cannula no respiratory distress Levophed weaned off around 3:00 a.m. this morning This morning when I saw the patient she continues to repeat 'I want to get going'. She is not sure why she is in the hospital and is oriented times 0 she is awake and follows commands. When asked her if she was having any shortness of breath or pain she answered no. Patient denied fever, chest pain, shortness of breath, cough, nausea, vomiting, abdominal pain, diarrhea, headache or constipation. Review of system was positive for feeling tired. Review of Systems Review of Systems: All systems reviewed & are unremarkable except as noted in HPI and below (Subjective) Exam Narrative: General: Pt is alert awake and in NAD, Lungs/Chest: Trachea central, breath sounds are decreased on left side, No crackles or wheezing. Cardiac: RRR. Normal S1 S2. No murmurs Circulation: Abdomen: Normal bowel sounds.. Soft. NT. ND. Extremities: No clubbing, cyanosis or edema. Warm : Hunter in place Neurologic: Follows commands. Moves all 4 extremities PERRL AO x0 but is aware of her name and where she lives Skin: No Rash Objective Data Vital Signs Vital Signs: Vital Signs - 24 hr 11/28/21 12:00 11/28/21 12:31 11/28
[2021-11-29 12:09] LABS: Glucose Point of Care 150 mg/dl (65-105)
[2021-11-29] MEDS: INSULIN GLARGINE (*BKC) 100 UNITS/ML 15 UNITS SUB-Q (12:09)
[2021-11-29] MEDS: ASPIRIN 81 MG ENTERIC TABLET PO (12:10)
[2021-11-29] MEDS: POTASSIUM CHLORIDE 20 MEQ PACKET (FOR LIQUID) 40 MEQ PO (12:10)
[2021-11-29] MEDS: CLOPIDOGREL BISULFATE 75 MG TABLET PO (12:10)
[2021-11-29 17:40] LABS: Glucose Point of Care 195 mg/dl (65-105)
[2021-11-29] MEDS: ATORVASTATIN 40 MG TABLET PO (20:56)
[2021-11-30] VITALS (25 sets, daily range): BP systolic 82–119; BP diastolic 45–62; PULSE 67–106; RESP 16–93; TEMP 36.3–37.1; O2SAT 24–100
[2021-11-30] MEDS: ALBUMIN HUMAN 25% 25 GM/100 ML 100 ML IVPB ×2 (00:21→04:41)
[2021-11-30] MEDS: ALBUTEROL SULFATE NEB 2.5 MG/0.5 ML INH INHALATION ×4 (02:39→20:30)
[2021-11-30] MEDS: CENTRAL LINE FLUSH 10 ML IV PUSH ×4 (04:41→20:11)
[2021-11-30] MEDS: LEVOTHYROXINE SODIUM 150 MCG TABLET PO (04:43)
[2021-11-30] MEDS: MESALAMINE 400 MG DELAYED RELEASE CAPSULE 800 MG PO ×3 (04:43→20:11)
[2021-11-30 05:00] LABS: Hematocrit 27.3 % (37.0-47.0); Hemoglobin 7.8 g/dL (12.0-15.0); Mean Corpuscular HGB Conc 28.6 g/dl (32-36); Mean Corpuscular Volume 94.5 fl (80-100); Mean Platelet Volume 10.1 fl (7.4-10.4); Platelet Count Result 310 k/mm3 (150-375); Red Blood Count 2.89 M/mm3 (4.2-5.4); Red Cell Distribution Width 17.5 % (11.5-14.5); White Blood Count 9.6 K/mm3 (4.5-10.0)
[2021-11-30 05:12] LABS: Alanine Aminotransferase 13 U/L (4-35); Alkaline Phosphatase 48 U/L (38-126); Anion Gap 5 mmol/L (8-16); Aspartate Amino Transferase 46 U/L (14-36); Bilirubin,Total 0.2 mg/dL (0.2-1.3); Blood Urea Nitrogen 38 mg/dL (7-17); Calcium 9.4 mg/dL (8.4-10.2); Carbon Dioxide 32 mmol/L (22-30); Chloride 107 mmol/L (98-107); Estimated CRCL calculation 54 ml/min; Estimated Glomerular Filt Rate > 60; Glucose 165 mg/dL (65-110); Magnesium 1.9 mg/dL (1.6-2.3); Potassium 3.5 mmol/L (3.4-5.0); Sodium 144 mmol/L (137-145)
[2021-11-30 07:35] LABS: Glucose Point of Care 163 mg/dl (65-105)
[2021-11-30] MEDS: INSULIN GLARGINE (*BKC) 100 UNITS/ML 15 UNITS SUB-Q (09:55)
--- NOTE | 2021-11-30 11:00 | WPDINTPN ---
Progress Note: A&P Assessment and Plan (1) Acute kidney injury: Code(s): N17.9 - Acute kidney failure, unspecified Status: Acute Assessment and Plan: Likely secondary to septic shock Creatinine has normalized Off IV fluids at this time Monitor urine output electrolytes and creatinine (2) Large pleural effusion: Code(s): J90 - Pleural effusion, not elsewhere classified Status: Acute Assessment and Plan: 2/ Status post thoracentesis with blood 1 L fluid removal PH was adequate and other studies are pending Requested repeat thoracentesis move additional fluid as patient still has decent sized effusion on the left side Hold aspirin and Plavix as per cardiology's request (3) Septic shock: Code(s): A41.9 - Sepsis, unspecified organism; R65.21 - Severe sepsis with septic shock Status: Acute Assessment and Plan: Secondary to pneumonia and UTI Blood and urine cultures are negative till now Hold further IV fluids due to history of CHF and recent COVID diagnosis Off Levophed for more than 24 hours Will discontinue albumin Continue vancomycin and cefepime (4) Pneumonia: Qualifiers: Laterality: left Lung location: unspecified part of lung Pneumonia type: due to unspecified organism Qualified Code(s): J18.9 - Pneumonia, unspecified organism Code(s): J18.9 - Pneumonia, unspecified organism Status: Acute Assessment and Plan: See above (5) Type 2 diabetes mellitus: Code(s): E11.9 - Type 2 diabetes mellitus without complications Status: Chronic Assessment and Plan: Sliding scale insulin Add Lantus (6) Congestive heart failure: Code(s): I50.9 - Heart failure, unspecified Status: Chronic Assessment and Plan: Hold Lasix at this time Off IV fluids (7) Chronic respiratory failure with hypoxia, on home oxygen therapy: Code(s): J96.11 - Chronic respiratory failure with hypoxia; Z99.81 - Dependence on supplemental oxygen Status: Acute Assessment and Plan: Patient is on oxygen at home and currently has atelectasis and left pleural effusion See management from both above She is on antibiotics for treatment for pneumonia, had thoracentesis and is on CPT (8) Atelectasis: Code(s): J98.11 - Atelectasis Status: Acute Assessment and Plan: Patient appears to have very weak cough Continue CPT Frequent nasal suction p.r.n. Mucomyst bronchodilators Will try to get patient up in chair today PT OT consult (9) Hypothyroidism: Code(s): E03.9 - Hypothyroidism, unspecified Status: Chronic Assessment and Plan: Continue levothyroxine (10) COVID-19: Code(s): U07.1 - COVID-19 Status: Acute Assessment and Plan: Patient was tested for COVID 19 as an outpatient on 11/24. She is on 2 L oxygen at home and continues to be on. She does have some patchy infiltrates on the right lung All the left lung is completely atelectatic. She was started dexamethasone which will be completed for a 10 day course. Will also order remdesivir Additional Plan DVT prophylaxis -.SCDs and Lovenox Code Status - Full Code Subjective Date/time seen: 11/30/21 11:00 Overnight events reviewed. Afebrile Continues to be on 2 L nasal cannula Patient is pleasantly confused and does not know why she is in the hospital. Denies any complaint. Denies any chest pain shortness of breath she does have intermittent cough which appears weak. Limited review of system was obtained. Patient denies fever, chest pain, shortness of breath, nausea vomiting, abdominal pain,, diarrhea, headache or constipation. Review of Systems Review of Systems: All systems reviewed & are unremarkable except as noted in HPI and below (Subjective) Exam Narrative: General: Pt is alert awake and in NAD, Lungs/Chest: Trachea central, breath sounds are decreased on left side, No crackles or wheezing. C
[2021-11-30 11:49] LABS: Glucose Point of Care 148 mg/dl (65-105)
[2021-11-30] MEDS: REMDESIVIR 200 MG/NS 250 ML 200 MG/250 ML BAG 250 MG IVPB (12:02)
--- NOTE | 2021-11-30 13:20 | PCOTNOTE ---
Attempted OT evaluation, per RN hold until tomorrow, patient is currently not appropriate to participate with therapy at this time.
[2021-11-30] MEDS: OXcarbazepine 300 MG TABLET PO (17:06)
[2021-11-30] MEDS: ASCORBIC ACID 250 MG TABLET PO (17:06)
[2021-11-30 17:18] LABS: Glucose Point of Care 186 mg/dl (65-105)
[2021-11-30] MEDS: ATORVASTATIN 40 MG TABLET PO (20:11)
[2021-11-30 20:12] LABS: Glucose Point of Care 164 mg/dl (65-105)
[2021-12-01] VITALS (23 sets, daily range): BP systolic 116–132; BP diastolic 58–94; PULSE 49–122; RESP 14–26; TEMP 36.1–36.7; O2SAT 94–99
[2021-12-01] MEDS: ALBUTEROL SULFATE NEB 2.5 MG/0.5 ML INH INHALATION ×4 (02:26→20:43)
[2021-12-01] MEDS: MESALAMINE 400 MG DELAYED RELEASE CAPSULE 800 MG PO ×3 (06:20→20:22)
[2021-12-01] MEDS: CENTRAL LINE FLUSH 10 ML IV PUSH ×4 (06:21→20:22)
[2021-12-01] MEDS: LEVOTHYROXINE SODIUM 150 MCG TABLET PO (06:21)
[2021-12-01 06:42] LABS: Hematocrit 31.7 % (37.0-47.0); Hemoglobin 9.1 g/dL (12.0-15.0); Mean Corpuscular HGB Conc 28.7 g/dl (32-36); Mean Corpuscular Hemoglobin 27.2 pg (26-34); Mean Corpuscular Volume 94.6 fl (80-100); Mean Platelet Volume 10.1 fl (7.4-10.4); Platelet Count Result 327 k/mm3 (150-375); Red Blood Count 3.35 M/mm3 (4.2-5.4); Red Cell Distribution Width 17.4 % (11.5-14.5); White Blood Count 10.5 K/mm3 (4.5-10.0)
[2021-12-01 06:51] LABS: Prothrombin Time 13.5 Seconds (11.1-14.7)
[2021-12-01 06:54] LABS: Alanine Aminotransferase 14 U/L (4-35); Albumin Level 3.8 g/dL (3.5-5.1); Alkaline Phosphatase 56 U/L (38-126); Anion Gap 4 mmol/L (8-16); Aspartate Amino Transferase 38 U/L (14-36); Bilirubin,Total 0.2 mg/dL (0.2-1.3); Blood Urea Nitrogen 35 mg/dL (7-17); Carbon Dioxide 31 mmol/L (22-30); Chloride 109 mmol/L (98-107); Estimated CRCL calculation 63 ml/min; Estimated Glomerular Filt Rate > 60; Glucose 166 mg/dL (65-110); Magnesium 1.9 mg/dL (1.6-2.3); Potassium 3.3 mmol/L (3.4-5.0); Sodium 144 mmol/L (137-145)
--- NOTE | 2021-12-01 08:32 | PCOTNOTE ---
Per RN, HOLD for today, pt. not medically appropriate for for therapy at this time
[2021-12-01 08:36] LABS: Glucose Point of Care 194 mg/dl (65-105)
[2021-12-01] MEDS: UMECLIDINIUM BROMIDE 62.5 MCG ELLIPTA 1 PUFF INHALATION (10:02)
[2021-12-01] MEDS: ASCORBIC ACID 250 MG TABLET PO ×2 (10:03→17:24)
[2021-12-01] MEDS: PYRIDOXINE HCL 50 MG TABLET 100 MG PO (10:03)
[2021-12-01] MEDS: OXcarbazepine 300 MG TABLET PO ×2 (10:04→17:25)
[2021-12-01] MEDS: ENOXAPARIN 40 MG/0.4 ML SYRINGE SUB-Q (10:04)
[2021-12-01] MEDS: REMDESIVIR 100 MG/NS 250 ML 100 MG/250 ML BAG 250 MG IVPB (10:05)
[2021-12-01] MEDS: INSULIN GLARGINE (*BKC) 100 UNITS/ML 15 UNITS SUB-Q (10:05)
[2021-12-01] MEDS: CALCIUM CARBONATE (OSCAL) 500 MG TABLET PO (10:05)
[2021-12-01] MEDS: INSULIN ASPART (*BKC) 100 UNITS/ML SUB-Q (12:15)
[2021-12-01 14:32] LABS: Glucose Point of Care 212 mg/dl (65-105)
--- NOTE | 2021-12-01 16:12 | PM.IMPN ---
Progress Note: A&P Assessment and Plan (1) Acute kidney injury: Code(s): N17.9 - Acute kidney failure, unspecified Status: Acute Assessment and Plan: Likely secondary to septic shock Creatinine has normalized Off IV fluids at this time Monitor urine output electrolytes and creatinine 12/01/2021 interval history: patient is 80-year-old female was COVID positive on 11/24 being treated with dexamethasone 02/04, and remdesivir 12/02 patient also has pleural effusion status post thoracentesis 1 L bloody, secondary to pneumonia patient being treated cefepime and vancomycin, patient remains clinically stable requiring 2 L of oxygen, will continue present managed and further recommendation to follow. (2) Large pleural effusion: Code(s): J90 - Pleural effusion, not elsewhere classified Status: Acute Assessment and Plan: 11/28 Status post thoracentesis with blood 1 L fluid removal PH was adequate and other studies are pending Requested repeat thoracentesis move additional fluid as patient still has decent sized effusion on the left side Hold aspirin and Plavix as per cardiology's request (3) Septic shock: Code(s): A41.9 - Sepsis, unspecified organism; R65.21 - Severe sepsis with septic shock Status: Acute Assessment and Plan: Secondary to pneumonia and UTI Blood and urine cultures are negative till now Hold further IV fluids due to history of CHF and recent COVID diagnosis Off Levophed for more than 24 hours Will discontinue albumin Continue vancomycin and cefepime (4) Pneumonia: Qualifiers: Laterality: left Lung location: unspecified part of lung Pneumonia type: due to unspecified organism Qualified Code(s): J18.9 - Pneumonia, unspecified organism Code(s): J18.9 - Pneumonia, unspecified organism Status: Acute Assessment and Plan: See above (5) Type 2 diabetes mellitus: Code(s): E11.9 - Type 2 diabetes mellitus without complications Status: Chronic Assessment and Plan: Sliding scale insulin Add Lantus (6) Congestive heart failure: Code(s): I50.9 - Heart failure, unspecified Status: Chronic Assessment and Plan: Hold Lasix at this time Off IV fluids (7) Chronic respiratory failure with hypoxia, on home oxygen therapy: Code(s): J96.11 - Chronic respiratory failure with hypoxia; Z99.81 - Dependence on supplemental oxygen Status: Acute Assessment and Plan: Patient is on oxygen at home and currently has atelectasis and left pleural effusion See management from both above She is on antibiotics for treatment for pneumonia, had thoracentesis and is on CPT (8) Atelectasis: Code(s): J98.11 - Atelectasis Status: Acute Assessment and Plan: Patient appears to have very weak cough Continue CPT Frequent nasal suction p.r.n. Mucomyst bronchodilators Will try to get patient up in chair today PT OT consult (9) Hypothyroidism: Code(s): E03.9 - Hypothyroidism, unspecified Status: Chronic Assessment and Plan: Continue levothyroxine (10) COVID-19: Code(s): U07.1 - COVID-19 Status: Acute Assessment and Plan: Patient was tested for COVID 19 as an outpatient on 11/24. She is on 2 L oxygen at home and continues to be on. She does have some patchy infiltrates on the right lung All the left lung is completely atelectatic. She was started dexamethasone which will be completed for a 10 day course. Will also order remdesivir Additional Plan DVT prophylaxis -.SCDs and Lovenox Code Status - Full Code Subjective Date/time seen: 12/01/21 16:12 12/01/2021 interval history: patient is 80-year-old female was COVID positive on 11/24 being treated with dexamethasone 10, and remdesivir 2/ patient also has pleural effusion status post thoracentesis 1 L bloody, secondary to pneumonia patient being treated cefepime and vancomycin, patient remains clinic
[2021-12-01 17:21] LABS: Glucose Point of Care 159 mg/dl (65-105)
--- NOTE | 2021-12-01 18:00 | ECG_ITS ---
Measurements Intervals [place] Rate: 109 P: SC: 0 QRS: 152 QRSD: 171 T: 36 QT: 388 QTc: 523 Interpretive Statements ECTOPIC ATRIAL TACHYCARDIA ATRIAL AND VENTRICULAR PREMATURE COMPLEXES RIGHT AXIS DEVIATION RIGHT BUNDLE BRANCH BLOCK BASELINE ARTIFACT- V5 ABNORMAL ECG Electronically Signed On 12-02-2021 7:09:27 CREDIT AND LOAN COLLECTIONS SUPERVISOR by Ronald Gonzalez D.O.
[2021-12-01] MEDS: ALPRAZolam (*CRX) 0.5 MG TABLET PO (18:45)
[2021-12-01] MEDS: ATORVASTATIN 40 MG TABLET PO (20:22)
[2021-12-01 22:00] LABS: Glucose Point of Care 138 mg/dl (65-105)
[2021-12-02] VITALS (26 sets, daily range): BP systolic 113–148; BP diastolic 61–93; PULSE 63–103; RESP 18–27; TEMP 36.1–36.7; O2SAT 90–100
[2021-12-02] MEDS: ALBUTEROL SULFATE NEB 2.5 MG/0.5 ML INH INHALATION ×4 (02:18→20:50)
[2021-12-02 05:13] LABS: Hematocrit 32.9 % (37.0-47.0); Hemoglobin 9.5 g/dL (12.0-15.0); Mean Corpuscular HGB Conc 28.9 g/dl (32-36); Mean Corpuscular Hemoglobin 27.1 pg (26-34); Mean Platelet Volume 10.2 fl (7.4-10.4); Platelet Count Result 380 k/mm3 (150-375); Red Cell Distribution Width 17.6 % (11.5-14.5); White Blood Count 12.4 K/mm3 (4.5-10.0)
[2021-12-02 05:29] LABS: INR 1.1; Prothrombin Time 14.4 Seconds (11.1-14.7)
[2021-12-02 05:43] LABS: Alanine Aminotransferase 14 U/L (4-35); Albumin Level 3.6 g/dL (3.5-5.1); Alkaline Phosphatase 53 U/L (38-126); Anion Gap 5 mmol/L (8-16); Aspartate Amino Transferase 36 U/L (14-36); Bilirubin,Total 0.1 mg/dL (0.2-1.3); Blood Urea Nitrogen 38 mg/dL (7-17); Calcium 9.6 mg/dL (8.4-10.2); Carbon Dioxide 29 mmol/L (22-30); Chloride 109 mmol/L (98-107); Estimated CRCL calculation 54 ml/min; Estimated Glomerular Filt Rate > 60; Glucose 138 mg/dL (65-110); Magnesium 1.8 mg/dL (1.6-2.3); Potassium 3.3 mmol/L (3.4-5.0); Sodium 143 mmol/L (137-145)
[2021-12-02 06:28] LABS: Vancomycin Trough 11.8 ug/mL (10.0-20.0)
[2021-12-02] MEDS: LEVOTHYROXINE SODIUM 150 MCG TABLET PO (06:54)
[2021-12-02] MEDS: CENTRAL LINE FLUSH 10 ML IV PUSH ×4 (06:54→20:26)
[2021-12-02] MEDS: MESALAMINE 400 MG DELAYED RELEASE CAPSULE 800 MG PO ×3 (06:54→20:26)
[2021-12-02] MEDS: UMECLIDINIUM BROMIDE 62.5 MCG ELLIPTA 1 PUFF INHALATION (08:37)
[2021-12-02] MEDS: PYRIDOXINE HCL 50 MG TABLET 100 MG PO (08:40)
[2021-12-02] MEDS: OXcarbazepine 300 MG TABLET PO ×2 (08:41→17:46)
[2021-12-02] MEDS: ASCORBIC ACID 250 MG TABLET PO ×2 (08:41→17:46)
[2021-12-02] MEDS: CALCIUM CARBONATE (OSCAL) 500 MG TABLET PO (08:42)
[2021-12-02] MEDS: INSULIN ASPART (*BKC) 100 UNITS/ML SUB-Q (08:42)
[2021-12-02] MEDS: ENOXAPARIN 40 MG/0.4 ML SYRINGE SUB-Q (08:43)
[2021-12-02] MEDS: INSULIN GLARGINE (*BKC) 100 UNITS/ML 15 UNITS SUB-Q (08:45)
[2021-12-02 08:47] LABS: Glucose Point of Care 242 mg/dl (65-105)
[2021-12-02] MEDS: FUROSEMIDE INJ 40 MG/4 ML VIAL IV PUSH (09:01)
--- NOTE | 2021-12-02 09:09 | PCOTNOTE ---
Per RN, Pt on hold from OT services today due to shortness of breath. Will follow up when patient appropriate for OT services.
[2021-12-02 09:36] LABS: Alveolar/Arterial O2 Gradient 83.1 mmHg; Base Excess ABG -3.8 mEq/l (+/-2.0); Fractional Inspired Oxygen 32 %; HCO3 ABG 24.8 mEq/l (22.0-26.0); Oxygen Content ABG 13.9 %vol (16.0-22.0); Oxygen Saturation ABG 89.9 % (95.0-100.0); Oxyhemoglobin 90.5 % THb (90.0-100.0); PO2 ABG 70.2 mmHg (80.0-100.0); PO2 FiO2 Ratio Arterial Blood 2.19 %; Total Hemoglobin 10.9 g/dL (12.0-18.0)
[2021-12-02 09:37] LABS: pH ABG 7.206 (7.350-7.450)
[2021-12-02 09:38] LABS: Device NASAL CANNULA; Modified Allen's Test Pass; Site Drawn LEFT RADIAL
--- NOTE | 2021-12-02 10:05 | PCPTNOTE ---
HOLD PT eval this date per RN- pt decreased oxygen saturation level, decreased medical status.
[2021-12-02] MEDS: REMDESIVIR 100 MG/NS 250 ML 100 MG/250 ML BAG 250 MG IVPB (11:41)
--- NOTE | 2021-12-02 12:12 | PM.IMPN ---
Progress Note: A&P Assessment and Plan (1) Acute kidney injury: Code(s): N17.9 - Acute kidney failure, unspecified Status: Acute Assessment and Plan: Likely secondary to septic shock Creatinine has normalized Off IV fluids at this time Monitor urine output electrolytes and creatinine 12/01/2021 interval history: patient is 80-year-old female was COVID positive on 11/24 being treated with dexamethasone 4/10, and remdesivir 2/5 patient also has pleural effusion status post thoracentesis 1 L bloody, secondary to pneumonia patient being treated cefepime and vancomycin, patient remains clinically stable requiring 2 L of oxygen, will continue present managed and further recommendation to follow. 12/02/2021 interval history: patient is 80-year-old female was COVID positive on 11/24 being treated with dexamethasone 5/10, and remdesivir 3/ patient also has alarge pleural effusion status post thoracentesis 1 L bloody, secondary to pneumonia patient being treated cefepime and vancomycin, today patient is more short of breath ABG showed 7.206/64/ 70, will place the patient on BiPAP, will start the patient on IV Lasix, will hold plavix, and possibly thoracentesis on Saturday, spoke with the patient's daughter and gave updates severe like to continue everything, will continue present managed and further recommendation to follow. (2) Large pleural effusion: Code(s): J90 - Pleural effusion, not elsewhere classified Status: Acute Assessment and Plan: 2 Status post thoracentesis with blood 1 L fluid removal PH was adequate and other studies are pending Requested repeat thoracentesis move additional fluid as patient still has decent sized effusion on the left side Hold aspirin and Plavix as per cardiology's request (3) Septic shock: Code(s): A41.9 - Sepsis, unspecified organism; R65.21 - Severe sepsis with septic shock Status: Acute Assessment and Plan: Secondary to pneumonia and UTI Blood and urine cultures are negative till now Hold further IV fluids due to history of CHF and recent COVID diagnosis Off Levophed for more than 24 hours Will discontinue albumin Continue vancomycin and cefepime (4) Pneumonia: Qualifiers: Laterality: left Lung location: unspecified part of lung Pneumonia type: due to unspecified organism Qualified Code(s): J18.9 - Pneumonia, unspecified organism Code(s): J18.9 - Pneumonia, unspecified organism Status: Acute Assessment and Plan: See above (5) Type 2 diabetes mellitus: Code(s): E11.9 - Type 2 diabetes mellitus without complications Status: Chronic Assessment and Plan: Sliding scale insulin Add Lantus (6) Congestive heart failure: Code(s): I50.9 - Heart failure, unspecified Status: Chronic Assessment and Plan: Hold Lasix at this time Off IV fluids (7) Chronic respiratory failure with hypoxia, on home oxygen therapy: Code(s): J96.11 - Chronic respiratory failure with hypoxia; Z99.81 - Dependence on supplemental oxygen Status: Acute Assessment and Plan: Patient is on oxygen at home and currently has atelectasis and left pleural effusion See management from both above She is on antibiotics for treatment for pneumonia, had thoracentesis and is on CPT (8) Atelectasis: Code(s): J98.11 - Atelectasis Status: Acute Assessment and Plan: Patient appears to have very weak cough Continue CPT Frequent nasal suction p.r.n. Mucomyst bronchodilators Will try to get patient up in chair today PT OT consult (9) Hypothyroidism: Code(s): E03.9 - Hypothyroidism, unspecified Status: Chronic Assessment and Plan: Continue levothyroxine (10) COVID-19: Code(s): U07.1 - COVID-19 Status: Acute Assessment and Plan: Patient was tested for COVID 19 as an outpatient on 11/24. She is on 2 L oxygen at home and continues to be on. S
[2021-12-02 12:38] LABS: Alveolar/Arterial O2 Gradient 75.9 mmHg; Base Excess ABG 2.8 mEq/l (+/-2.0); Fractional Inspired Oxygen 30 %; HCO3 ABG 29.3 mEq/l (22.0-26.0); Oxygen Content ABG 14.5 %vol (16.0-22.0); Oxyhemoglobin 93.4 % THb (90.0-100.0); PCO2 ABG 54.4 mmHg (35.0-45.0); PO2 ABG 74.1 mmHg (80.0-100.0); PO2 FiO2 Ratio Arterial Blood 2.47 %; pH ABG 7.349 (7.350-7.450)
[2021-12-02 12:39] LABS: Device BIPAP; Modified Allen's Test Pass; Site Drawn LEFT RADIAL
[2021-12-02 12:40] LABS: Expiratory Pressure 6 cmH2O; Inspiratory Pressure 11 cmH2O
[2021-12-02 13:14] LABS: Glucose Point of Care 172 mg/dl (65-105)
[2021-12-02 17:13] LABS: Glucose Pleural Fluid 173 mg/dL; LDH Pleural Fluid 97 U/L; Total Protein Pleural Fluid 4.3 g/dL
[2021-12-02 17:57] LABS: Glucose Point of Care 162 mg/dl (65-105)
[2021-12-02] MEDS: ATORVASTATIN 40 MG TABLET PO (20:26)
[2021-12-02 20:57] LABS: Glucose Point of Care 142 mg/dl (65-105)
[2021-12-03] VITALS (27 sets, daily range): BP systolic 99–129; BP diastolic 62–96; PULSE 74–110; RESP 17–29; TEMP 36.1–36.7; O2SAT 96–100
[2021-12-03] MEDS: ALBUTEROL SULFATE NEB 2.5 MG/0.5 ML INH INHALATION ×4 (02:24→21:45)
[2021-12-03 04:53] LABS: Hematocrit 34.1 % (37.0-47.0); Hemoglobin 9.9 g/dL (12.0-15.0); Mean Corpuscular Hemoglobin 26.9 pg (26-34); Mean Corpuscular Volume 92.7 fl (80-100); Mean Platelet Volume 10.5 fl (7.4-10.4); Platelet Count Result 436 k/mm3 (150-375); Red Blood Count 3.68 M/mm3 (4.2-5.4); Red Cell Distribution Width 17.3 % (11.5-14.5); White Blood Count 15.8 K/mm3 (4.5-10.0)
[2021-12-03 05:13] LABS: Alanine Aminotransferase 15 U/L (4-35); Albumin Level 3.5 g/dL (3.5-5.1); Alkaline Phosphatase 57 U/L (38-126); Anion Gap 7 mmol/L (8-16); Aspartate Amino Transferase 32 U/L (14-36); Bilirubin,Total 0.2 mg/dL (0.2-1.3); Blood Urea Nitrogen 40 mg/dL (7-17); Calcium 9.8 mg/dL (8.4-10.2); Carbon Dioxide 29 mmol/L (22-30); Chloride 106 mmol/L (98-107); Estimated CRCL calculation 48 ml/min; Estimated Glomerular Filt Rate > 60; Glucose 145 mg/dL (65-110); INR 1.2; Magnesium 1.7 mg/dL (1.6-2.3); Potassium 3.1 mmol/L (3.4-5.0); Prothrombin Time 15.3 Seconds (11.1-14.7); Sodium 142 mmol/L (137-145)
[2021-12-03 05:14] LABS: Alveolar/Arterial O2 Gradient 92.9 mmHg; Base Excess ABG 0.9 mEq/l (+/-2.0); Fractional Inspired Oxygen 30 %; HCO3 ABG 26.9 mEq/l (22.0-26.0); Oxygen Content ABG 13.7 %vol (16.0-22.0); Oxygen Saturation ABG 90.8 % (95.0-100.0); Oxyhemoglobin 92.5 % THb (90.0-100.0); PCO2 ABG 49.5 mmHg (35.0-45.0); PO2 ABG 62.8 mmHg (80.0-100.0); PO2 FiO2 Ratio Arterial Blood 2.09 %; Total Hemoglobin 10.5 g/dL (12.0-18.0); pH ABG 7.353 (7.350-7.450)
[2021-12-03 05:15] LABS: Device NON-INVASIVE VENT; Modified Allen's Test Pass; Site Drawn RIGHT RADIAL
[2021-12-03 05:16] LABS: Non-Invasive Expiratory Pressure 6 CMH2O; Non-Invasive Inspiratory Pressure 12 CMH2O; Non-Invasive Vent Rate 12 /MIN
--- NOTE | 2021-12-03 06:49 | PC.NURSE ---
Hospitalist Farhana DANIELS contacted at hospitalist office regarding patient increased weakness and inability to complete full neuro assessment at this time. Also, that patient was able to follow commands and complete neuro assessment with [address] Dutton coming to bedside to assess.
[2021-12-03] MEDS: DEXTROSE 10% 1,000 ML 65 ML IV CONT (07:46)
[2021-12-03] MEDS: CENTRAL LINE FLUSH 10 ML IV PUSH ×4 (07:46→21:13)
[2021-12-03 08:56] LABS: Glucose Point of Care 187 mg/dl (65-105)
[2021-12-03] MEDS: UMECLIDINIUM BROMIDE 62.5 MCG ELLIPTA 1 PUFF INHALATION (09:23)
[2021-12-03] MEDS: REMDESIVIR 100 MG/NS 250 ML 100 MG/250 ML BAG 250 MG IVPB (10:39)
[2021-12-03] MEDS: FUROSEMIDE INJ 40 MG/4 ML VIAL IV PUSH (10:40)
[2021-12-03] MEDS: ENOXAPARIN 40 MG/0.4 ML SYRINGE SUB-Q (10:40)
[2021-12-03] MEDS: POTASSIUM CHLORIDE INJ 40 MEQ in SODIUM CHLORIDE 0.9% IV 500 ML 130 MEQ IVPB (10:46)
--- NOTE | 2021-12-03 12:08 | PM.IMPN ---
Progress Note: A&P Assessment and Plan (1) Acute kidney injury: Code(s): N17.9 - Acute kidney failure, unspecified Status: Acute Assessment and Plan: Likely secondary to septic shock Creatinine has normalized Off IV fluids at this time Monitor urine output electrolytes and creatinine 12/01/2021 interval history: patient is 80-year-old female was COVID positive on 11/24 being treated with dexamethasone 4/10, and remdesivir 2/5 patient also has pleural effusion status post thoracentesis 1 L bloody, secondary to pneumonia patient being treated cefepime and vancomycin, patient remains clinically stable requiring 2 L of oxygen, will continue present managed and further recommendation to follow. 12/02/2021 interval history: patient is 80-year-old female was COVID positive on 11/24 being treated with dexamethasone 5/10, and remdesivir 3/5 patient also has alarge pleural effusion status post thoracentesis 1 L bloody, secondary to pneumonia patient being treated cefepime and vancomycin, today patient is more short of breath ABG showed 7.206/64/ 70, will place the patient on BiPAP, will start the patient on IV Lasix, will hold plavix, and possibly thoracentesis on Saturday, spoke with the patient's daughter and gave updates severe like to continue everything, will continue present managed and further recommendation to follow. 12/03/2021 interval history: patient is 80-year-old female was COVID positive on 11/24 being treated with dexamethasone 6/10, and remdesivir 4/5 patient also has alarge pleural effusion status post thoracentesis 1 L bloody, secondary to pneumonia patient being treated cefepime and vancomycin, repeat chest x-ray shows persistent left-sided pleural effusion patient will have a thoracentesis tomorrow, Again today patient is more short of breath however ABG showed improvement 7.353/ 49.5/ 62.8, will place the patient on BiPAP, will start the patient on IV Lasix, will hold plavix, and possibly thoracentesis on Saturday, on 12/02 spoke with the patient's daughter and gave updates would like to continue everything, will continue present managed and further recommendation to follow. (2) Large pleural effusion: Code(s): J90 - Pleural effusion, not elsewhere classified Status: Acute Assessment and Plan: 2/1 Status post thoracentesis with blood 1 L fluid removal PH was adequate and other studies are pending Requested repeat thoracentesis move additional fluid as patient still has decent sized effusion on the left side Hold aspirin and Plavix as per cardiology's request (3) Septic shock: Code(s): A41.9 - Sepsis, unspecified organism; R65.21 - Severe sepsis with septic shock Status: Acute Assessment and Plan: Secondary to pneumonia and UTI Blood and urine cultures are negative till now Hold further IV fluids due to history of CHF and recent COVID diagnosis Off Levophed for more than 24 hours Will discontinue albumin Continue vancomycin and cefepime (4) Pneumonia: Qualifiers: Laterality: left Lung location: unspecified part of lung Pneumonia type: due to unspecified organism Qualified Code(s): J18.9 - Pneumonia, unspecified organism Code(s): J18.9 - Pneumonia, unspecified organism Status: Acute Assessment and Plan: See above (5) Type 2 diabetes mellitus: Code(s): E11.9 - Type 2 diabetes mellitus without complications Status: Chronic Assessment and Plan: Sliding scale insulin Add Lantus (6) Congestive heart failure: Code(s): I50.9 - Heart failure, unspecified Status: Chronic Assessment and Plan: Hold Lasix at this time Off IV fluids (7) Chronic respiratory failure with hypoxia, on home oxygen therapy: Code(s): J96.11 - Chronic respiratory failure with hypoxia; Z99.81 - Dependence on supplemental oxygen Status: Acute Assessment and Plan: Patient is on oxygen at home and currentl
[2021-12-03 12:23] LABS: Magnesium 1.6 mg/dL (1.6-2.3)
--- NOTE | 2021-12-03 12:36 | PCOTNOTE ---
Per RN, HOLD for today, pt. not medically appropriate for for therapy at this time. Will follow-up tomorrow.
[2021-12-03] MEDS: INSULIN ASPART (*BKC) 100 UNITS/ML SUB-Q (12:55)
[2021-12-03] MEDS: INSULIN GLARGINE (*BKC) 100 UNITS/ML 15 UNITS SUB-Q (12:57)
[2021-12-03 13:11] LABS: Glucose Point of Care 226 mg/dl (65-105)
[2021-12-03 17:59] LABS: Glucose Point of Care 165 mg/dl (65-105)
[2021-12-03 18:32] LABS: Anion Gap 2 mmol/L (8-16); Blood Urea Nitrogen 39 mg/dL (7-17); Calcium 9.7 mg/dL (8.4-10.2); Carbon Dioxide 33 mmol/L (22-30); Chloride 108 mmol/L (98-107); Estimated CRCL calculation 54 ml/min; Estimated Glomerular Filt Rate > 60; Glucose 175 mg/dL (65-110); Magnesium 1.6 mg/dL (1.6-2.3); Potassium 3.6 mmol/L (3.4-5.0); Sodium 143 mmol/L (137-145)
[2021-12-03 20:09] LABS: Glucose Point of Care 151 mg/dl (65-105)
[2021-12-03] MEDS: HYDROCORTISONE SODIUM SUCCINATE 100 MG/2 ML VIAL IV PUSH (21:14)
[2021-12-04] VITALS (25 sets, daily range): BP systolic 117–140; BP diastolic 53–85; PULSE 74–99; RESP 19–28; TEMP 36.1–36.6; O2SAT 94–100; BMI 27.2
[2021-12-04] MEDS: ALBUTEROL SULFATE NEB 2.5 MG/0.5 ML INH INHALATION ×4 (02:14→20:22)
[2021-12-04 04:43] LABS: Hematocrit 35.9 % (37.0-47.0); Hemoglobin 10.4 g/dL (12.0-15.0); Mean Corpuscular Hemoglobin 27.6 pg (26-34); Mean Corpuscular Volume 95.2 fl (80-100); Mean Platelet Volume 10.4 fl (7.4-10.4); Platelet Count Result 449 k/mm3 (150-375); Red Blood Count 3.77 M/mm3 (4.2-5.4); Red Cell Distribution Width 17.7 % (11.5-14.5); White Blood Count 16.5 K/mm3 (4.5-10.0)
[2021-12-04 04:51] LABS: Alanine Aminotransferase 16 U/L (4-35); Albumin Level 3.6 g/dL (3.5-5.1); Alkaline Phosphatase 55 U/L (38-126); Anion Gap 7 mmol/L (8-16); Aspartate Amino Transferase 34 U/L (14-36); Bilirubin,Total 0.2 mg/dL (0.2-1.3); Blood Urea Nitrogen 42 mg/dL (7-17); Calcium 9.2 mg/dL (8.4-10.2); Carbon Dioxide 28 mmol/L (22-30); Chloride 108 mmol/L (98-107); Estimated CRCL calculation 55 ml/min; Estimated Glomerular Filt Rate > 60; Glucose 162 mg/dL (65-110); Magnesium 1.6 mg/dL (1.6-2.3); Potassium 3.6 mmol/L (3.4-5.0); Sodium 143 mmol/L (137-145)
[2021-12-04] MEDS: CENTRAL LINE FLUSH 10 ML IV PUSH ×4 (05:08→22:41)
[2021-12-04] MEDS: HYDROCORTISONE SODIUM SUCCINATE 100 MG/2 ML VIAL IV PUSH (05:09)
[2021-12-04 05:43] LABS: INR 1.1; Prothrombin Time 14.4 Seconds (11.1-14.7)
[2021-12-04 08:20] LABS: Glucose Point of Care 251 mg/dl (65-105)
[2021-12-04] MEDS: REMDESIVIR 100 MG/NS 250 ML 100 MG/250 ML BAG 250 MG IVPB (12:04)
[2021-12-04] MEDS: FUROSEMIDE INJ 40 MG/4 ML VIAL IV PUSH (12:05)
[2021-12-04] MEDS: ENOXAPARIN 40 MG/0.4 ML SYRINGE SUB-Q (12:05)
[2021-12-04] MEDS: INSULIN GLARGINE (*BKC) 100 UNITS/ML 15 UNITS SUB-Q (12:06)
[2021-12-04] MEDS: INSULIN ASPART (*BKC) 100 UNITS/ML SUB-Q ×2 (12:06→17:17)
[2021-12-04 12:11] LABS: Glucose Point of Care 282 mg/dl (65-105)
[2021-12-04 12:47] LABS: Magnesium 1.5 mg/dL (1.6-2.3)
--- NOTE | 2021-12-04 13:03 | P.PNIM_ITS ---
Progress Note: A&P Assessment and Plan (1) Acute kidney injury: Code(s): N17.9 - Acute kidney failure, unspecified Status: Acute Assessment and Plan: Likely secondary to septic shock Creatinine has normalized Off IV fluids at this time Monitor urine output electrolytes and creatinine 12/01/2021 interval history: patient is 80-year-old female was COVID positive on 11/24 being treated with dexamethasone 4/10, and remdesivir 2/5 patient also has pleural effusion status post thoracentesis 1 L bloody, secondary to pneumonia patient being treated cefepime and vancomycin, patient remains clinically stable requiring 2 L of oxygen, will continue present managed and further recommendation to follow. 12/02/2021 interval history: patient is 80-year-old female was COVID positive on 11/24 being treated with dexamethasone 5/10, and remdesivir 3/5 patient also has alarge pleural effusion status post thoracentesis 1 L bloody, secondary to pneumonia patient being treated cefepime and vancomycin, today patient is more short of breath ABG showed 7.206/64/ 70, will place the patient on BiPAP, will start the patient on IV Lasix, will hold plavix, and possibly thoracentesis on Saturday, spoke with the patient's daughter and gave updates severe like to continue everything, will continue present managed and further recommendation to follow. 12/03/2021 interval history: patient is 80-year-old female was COVID positive on 11/24 being treated with dexamethasone 6/10, and remdesivir 4/5 patient also has alarge pleural effusion status post thoracentesis 1 L bloody, secondary to pneumonia patient being treated cefepime and vancomycin, repeat chest x-ray shows persistent left-sided pleural effusion patient will have a thoracentesis tomorrow, Again today patient is more short of breath however ABG showed improvement 7.353/ 49.5/ 62.8, will place the patient on BiPAP, will start the patient on IV Lasix, will hold plavix, and possibly thoracentesis on Saturday, on 12/02 spoke with the patient's daughter and gave updates would like to continue everything, will continue present managed and further recommendation to follow. (2) Large pleural effusion: Code(s): J90 - Pleural effusion, not elsewhere classified Status: Acute Assessment and Plan: 2/1 Status post thoracentesis with blood 1 L fluid removal PH was adequate and other studies are pending Requested repeat thoracentesis move additional fluid as patient still has decent sized effusion on the left side Hold aspirin and Plavix as per cardiology's request (3) Septic shock: Code(s): A41.9 - Sepsis, unspecified organism; R65.21 - Severe sepsis with septic shock Status: Acute Assessment and Plan: Secondary to pneumonia and UTI Blood and urine cultures are negative till now Hold further IV fluids due to history of CHF and recent COVID diagnosis Off Levophed for more than 24 hours Will discontinue albumin Continue vancomycin and cefepime (4) Pneumonia: Qualifiers: Laterality: left Lung location: unspecified part of lung Pneumonia type: due to unspecified organism Qualified Code(s): J18.9 - Pneumonia, unspecified organism Code(s): J18.9 - Pneumonia, unspecified organism Status: Acute Assessment and Plan: See above (5) Type 2 diabetes mellitus: Code(s): E11.9 - Type 2 diabetes mellitus without complications Status: Chronic Assessment and Plan: Sliding scale insulin Add Lantus (6) Congestive heart failure: Code(s): I50.9 - Heart failure, unspecified Status: Chronic Assessment and Plan: Ho
[2021-12-04] MEDS: DEXTROSE 10% 1,000 ML 65 ML IV CONT (17:18)
[2021-12-04 20:24] LABS: Glucose Point of Care 295 mg/dl (65-105)
[2021-12-04 20:24] LABS: Glucose Point of Care 336 mg/dl (65-105)
[2021-12-04 21:54] LABS: Alveolar/Arterial O2 Gradient 91.9 mmHg; Base Excess ABG 2.2 mEq/l (+/-2.0); Fractional Inspired Oxygen 32 %; HCO3 ABG 28.2 mEq/l (22.0-26.0); Oxygen Content ABG 14.6 %vol (16.0-22.0); Oxygen Saturation ABG 94.8 % (95.0-100.0); Oxyhemoglobin 93.9 % THb (90.0-100.0); PCO2 ABG 50.8 mmHg (35.0-45.0); PO2 ABG 76.8 mmHg (80.0-100.0); Site Drawn RIGHT RADIAL; pH ABG 7.363 (7.350-7.450)
[2021-12-04 21:55] LABS: Device NASAL CANNULA; Modified Allen's Test Pass
[2021-12-05] VITALS (26 sets, daily range): BP systolic 98–125; BP diastolic 53–67; PULSE 73–113; RESP 16–23; TEMP 35.7–36.6; O2SAT 97–100; BMI 10.0
[2021-12-05 00:01] LABS: Hematocrit 34.1 % (37.0-47.0); Mean Corpuscular HGB Conc 29.3 g/dl (32-36); Mean Corpuscular Hemoglobin 27.4 pg (26-34); Mean Corpuscular Volume 93.4 fl (80-100); Mean Platelet Volume 10.7 fl (7.4-10.4); Platelet Count Result 459 k/mm3 (150-375); Red Blood Count 3.65 M/mm3 (4.2-5.4); Red Cell Distribution Width 17.3 % (11.5-14.5); White Blood Count 15.2 K/mm3 (4.5-10.0)
[2021-12-05 00:03] LABS: Anion Gap 4 mmol/L (8-16); Blood Urea Nitrogen 39 mg/dL (7-17); Carbon Dioxide 33 mmol/L (22-30); Chloride 104 mmol/L (98-107); Estimated CRCL calculation 48 ml/min; Estimated Glomerular Filt Rate > 60; Glucose 327 mg/dL (65-110); Sodium 141 mmol/L (137-145)
[2021-12-05] MEDS: ALBUTEROL SULFATE NEB 2.5 MG/0.5 ML INH INHALATION ×4 (02:13→20:34)
[2021-12-05] MEDS: CENTRAL LINE FLUSH 10 ML IV PUSH ×4 (05:03→21:01)
[2021-12-05 05:08] LABS: Hematocrit 32.4 % (37.0-47.0); Hemoglobin 9.6 g/dL (12.0-15.0); Mean Corpuscular HGB Conc 29.6 g/dl (32-36); Mean Corpuscular Hemoglobin 26.9 pg (26-34); Mean Corpuscular Volume 90.8 fl (80-100); Mean Platelet Volume 10.4 fl (7.4-10.4); Platelet Count Result 428 k/mm3 (150-375); Red Blood Count 3.57 M/mm3 (4.2-5.4); Red Cell Distribution Width 17.3 % (11.5-14.5); White Blood Count 14.2 K/mm3 (4.5-10.0)
[2021-12-05 05:21] LABS: Alanine Aminotransferase 18 U/L (4-35); Albumin Level 3.3 g/dL (3.5-5.1); Alkaline Phosphatase 48 U/L (38-126); Anion Gap 4 mmol/L (8-16); Aspartate Amino Transferase 29 U/L (14-36); Bilirubin,Total < 0.1 mg/dL (0.2-1.3); Blood Urea Nitrogen 39 mg/dL (7-17); Calcium 8.9 mg/dL (8.4-10.2); Carbon Dioxide 32 mmol/L (22-30); Chloride 103 mmol/L (98-107); Estimated CRCL calculation 48 ml/min; Estimated Glomerular Filt Rate > 60; Glucose 330 mg/dL (65-110); Magnesium 1.4 mg/dL (1.6-2.3); Sodium 139 mmol/L (137-145)
[2021-12-05 05:26] LABS: INR 1.2; Prothrombin Time 15.2 Seconds (11.1-14.7)
[2021-12-05 05:38] LABS: Vancomycin Trough 17.2 ug/mL (10.0-20.0)
[2021-12-05 08:32] LABS: Glucose Point of Care 259 mg/dl (65-105)
[2021-12-05] MEDS: FUROSEMIDE INJ 40 MG/4 ML VIAL IV PUSH (10:04)
[2021-12-05] MEDS: ENOXAPARIN 40 MG/0.4 ML SYRINGE SUB-Q (10:05)
[2021-12-05] MEDS: INSULIN GLARGINE (*BKC) 100 UNITS/ML 15 UNITS SUB-Q (10:05)
[2021-12-05] MEDS: INSULIN ASPART (*BKC) 100 UNITS/ML SUB-Q ×3 (10:06→17:59)
[2021-12-05] MEDS: REMDESIVIR 100 MG/NS 250 ML 100 MG/250 ML BAG 250 MG IVPB (10:06)
[2021-12-05 12:27] LABS: Glucose Point of Care 295 mg/dl (65-105)
[2021-12-05] MEDS: MAGNESIUM SULF 1 GM/D5W 100 ML 1 GM/100 ML BAG IVPB (12:28)
[2021-12-05] MEDS: KCL 40 MEQ/WATER 100 ML 100 ML 25 ML IVPB (12:28)
[2021-12-05] MEDS: DEXTROSE 10% 1,000 ML 50 ML IV CONT (12:29)
--- NOTE | 2021-12-05 13:42 | PCRCNOTE ---
Window of time for administration has passed. See next scheduled administration.
--- NOTE | 2021-12-05 14:08 | PM.IMPN ---
Progress Note: A&P Assessment and Plan (1) Acute kidney injury: Code(s): N17.9 - Acute kidney failure, unspecified Status: Acute Assessment and Plan: Likely secondary to septic shock Creatinine has normalized Off IV fluids at this time Monitor urine output electrolytes and creatinine 12/01/2021 interval history: patient is 80-year-old female was COVID positive on 11/24 being treated with dexamethasone 4/10, and remdesivir 2/5 patient also has pleural effusion status post thoracentesis 1 L bloody, secondary to pneumonia patient being treated cefepime and vancomycin, patient remains clinically stable requiring 2 L of oxygen, will continue present managed and further recommendation to follow. 12/02/2021 interval history: patient is 80-year-old female was COVID positive on 11/24 being treated with dexamethasone 5/10, and remdesivir 3/5 patient also has alarge pleural effusion status post thoracentesis 1 L bloody, secondary to pneumonia patient being treated cefepime and vancomycin, today patient is more short of breath ABG showed 7.206/64/ 70, will place the patient on BiPAP, will start the patient on IV Lasix, will hold plavix, and possibly thoracentesis on Saturday, spoke with the patient's daughter and gave updates severe like to continue everything, will continue present managed and further recommendation to follow. 12/03/2021 interval history: patient is 80-year-old female was COVID positive on 11/24 being treated with dexamethasone 6/10, and remdesivir 4/5 patient also has alarge pleural effusion status post thoracentesis 1 L bloody, secondary to pneumonia patient being treated cefepime and vancomycin, repeat chest x-ray shows persistent left-sided pleural effusion patient will have a thoracentesis tomorrow, Again today patient is more short of breath however ABG showed improvement 7.353/ 49.5/ 62.8, will place the patient on BiPAP, will start the patient on IV Lasix, will hold plavix, and possibly thoracentesis on Saturday, on 12/02 spoke with the patient's daughter and gave updates would like to continue everything, will continue present managed and further recommendation to follow. 12/04/2021 interval history: patient is 80-year-old female was COVID positive on 11/24 being treated with dexamethasone 7/10, and remdesivir 5/5 patient completed 5 day course of remdesivir today will continue for another 5 days as patient is requiring high-flow oxygen and BiPAP, patient also has a large left sided pleural effusion status post thoracentesis 1 L bloody, secondary to pneumonia patient being treated cefepime and vancomycin, repeat chest x-ray shows persistent left-sided pleural effusion patient had thoracentesis today and 1000 cc of clear yellow fluid was removed suspect transudative Again today patient is more short of breath however ABG on 12/03 showed improvement 7.353/ 49.5/ 62.8, will place the patient on BiPAP as needed, will start the patient on IV Lasix, on 12/02 spoke with the patient's daughter and gave updates would like to continue everything, will continue present managed and further recommendation to follow. 12/05/2021 interval history: patient is 80-year-old female was COVID positive on 11/24 being treated with dexamethasone 06/06, and remdesivir 03/01 patient completed 5 day course of remdesivir 12/04, will continue for another 5 days as patient is requiring high-flow oxygen and BiPAP, patient also has a large left sided pleural effusion status post thoracentesis 1 L bloody, secondary to pneumonia patient being treated cefepime and vancomycin, repeat chest x-ray shows persistent left-sided pleural effusion patient had thoracentesis today and 1000 cc of clear yellow fluid was removed suspect transudative Again today patient is more short of breath however ABG on 12/03 showed improvement 7.353/ 49.5/ 62.8, will place the patient on BiPAP as needed, started the patient on IV Lasix, today patient potassium and
[2021-12-05 17:20] LABS: Glucose Point of Care 273 mg/dl (65-105)
[2021-12-05 20:42] LABS: Glucose Point of Care 304 mg/dl (65-105)
--- NOTE | 2021-12-05 21:42 | PCRCNOTE ---
Pt is not clearing secretions on her own. There is a high probability that she will aspirate secretions if placed on NIV overnight. NIV is on standby.
[2021-12-06] VITALS (31 sets, daily range): BP systolic 56–132; BP diastolic 31–82; PULSE 66–107; RESP 12–22; TEMP 36.1–37.1; O2SAT 94–100
[2021-12-06] MEDS: ALBUTEROL SULFATE NEB 2.5 MG/0.5 ML INH INHALATION ×4 (01:29→21:03)
--- NOTE | 2021-12-06 02:06 | PCRCNOTE ---
Chest PT not done on pt. After talking with the pt, it appears that when chest PT via the vest is done, she thinks that she is being hit. She told me that people come in and pummel her. Pt stated that she is scared. Will discuss with day shift getting the order discontinued.
[2021-12-06 06:17] LABS: Hematocrit 24.4 % (37.0-47.0); Hemoglobin 7.3 g/dL (12.0-15.0); Mean Corpuscular HGB Conc 29.9 g/dl (32-36); Mean Corpuscular Hemoglobin 27.4 pg (26-34); Mean Corpuscular Volume 91.7 fl (80-100); Mean Platelet Volume 10.4 fl (7.4-10.4); Platelet Count Result 382 k/mm3 (150-375); Red Blood Count 2.66 M/mm3 (4.2-5.4); Red Cell Distribution Width 17.2 % (11.5-14.5); White Blood Count 22.8 K/mm3 (4.5-10.0)
[2021-12-06] MEDS: ONDANSETRON INJ 4 MG/2 ML VIAL IV PUSH (06:20)
[2021-12-06 06:30] LABS: INR 1.4
[2021-12-06 06:32] LABS: Alanine Aminotransferase 21 U/L (4-35); Alkaline Phosphatase 42 U/L (38-126); Anion Gap 6 mmol/L (8-16); Aspartate Amino Transferase 35 U/L (14-36); Bilirubin,Total 0.2 mg/dL (0.2-1.3); Blood Urea Nitrogen 56 mg/dL (7-17); Calcium 8.4 mg/dL (8.4-10.2); Carbon Dioxide 28 mmol/L (22-30); Chloride 103 mmol/L (98-107); Estimated CRCL calculation 33 ml/min; Estimated Glomerular Filt Rate 43; Glucose 306 mg/dL (65-110); Magnesium 1.6 mg/dL (1.6-2.3); Potassium 3.6 mmol/L (3.4-5.0); Sodium 137 mmol/L (137-145)
[2021-12-06] MEDS: CENTRAL LINE FLUSH 10 ML IV PUSH ×4 (07:37→21:10)
[2021-12-06] MEDS: UMECLIDINIUM BROMIDE 62.5 MCG ELLIPTA 1 PUFF INHALATION (08:39)
[2021-12-06 08:57] LABS: Glucose Point of Care 266 mg/dl (65-105)
[2021-12-06] MEDS: INSULIN GLARGINE (*BKC) 100 UNITS/ML 15 UNITS SUB-Q (10:20)
[2021-12-06] MEDS: INSULIN ASPART (*BKC) 100 UNITS/ML SUB-Q ×3 (10:21→17:10)
[2021-12-06] MEDS: REMDESIVIR 100 MG/NS 250 ML 100 MG/250 ML BAG 250 MG IVPB (10:24)
[2021-12-06 11:11] LABS: Hematocrit 23.5 % (37.0-47.0); Mean Corpuscular HGB Conc 29.8 g/dl (32-36); Mean Corpuscular Hemoglobin 27.7 pg (26-34); Mean Corpuscular Volume 92.9 fl (80-100); Mean Platelet Volume 10.4 fl (7.4-10.4); Platelet Count Result 402 k/mm3 (150-375); Red Blood Count 2.53 M/mm3 (4.2-5.4); Red Cell Distribution Width 17.1 % (11.5-14.5); White Blood Count 26.5 K/mm3 (4.5-10.0)
[2021-12-06 13:01] LABS: Glucose Point of Care 273 mg/dl (65-105)
[2021-12-06] MEDS: FAT EMULSIONS IV 20% 250 ML 20.83 ML IVPB (13:24)
[2021-12-06] MEDS: AMINO ACIDS 5%/D15W/E-LYTES/CA 2,000 ML with MULTIVITAMINS-12 INJ VIAL 1 2.5 ML, MULTIV... 40 ML IV CONT (13:24)
[2021-12-06 13:47] LABS: Hematocrit 25.1 % (37.0-47.0); Hemoglobin 7.3 g/dL (12.0-15.0); Mean Corpuscular HGB Conc 29.1 g/dl (32-36); Mean Platelet Volume 10.7 fl (7.4-10.4); Platelet Count Result 424 k/mm3 (150-375); Red Cell Distribution Width 17.3 % (11.5-14.5); White Blood Count 31.6 K/mm3 (4.5-10.0)
[2021-12-06 13:57] LABS: Partial Thromboplastin Time 29.4 SECONDS (22.3-36.8)
[2021-12-06 13:58] LABS: Alanine Aminotransferase 21 U/L (4-35); Albumin Level 3.2 g/dL (3.5-5.1); Alkaline Phosphatase 46 U/L (38-126); Anion Gap 6 mmol/L (8-16); Aspartate Amino Transferase 35 U/L (14-36); Bilirubin,Total 0.2 mg/dL (0.2-1.3); Blood Urea Nitrogen 65 mg/dL (7-17); Calcium 8.6 mg/dL (8.4-10.2); Carbon Dioxide 29 mmol/L (22-30); Chloride 102 mmol/L (98-107); Estimated CRCL calculation 29 ml/min; Estimated Glomerular Filt Rate 36; Glucose 277 mg/dL (65-110); Magnesium 1.6 mg/dL (1.6-2.3); Potassium 3.9 mmol/L (3.4-5.0); Sodium 137 mmol/L (137-145)
--- NOTE | 2021-12-06 13:58 | PCNFU ---
Nutrition Follow-Up Complete: Inadequate oral intake related to sepsis, pneumonia as evidenced by reported intake of 0% Goal: Pt to meet 75% of estimated nutritional needs Pt is not progressing towards goal Pt current nutrition is TPN w/lipid infusion Last recorded weight is 73 kg, down 1kg since last weight reported 12/04/21. Bowel Motility: +BM 12/06 reported Labs Reviewed: hgb 7.0, hct 23.5, GFR 43, BUN 56, Cr 1.2, Glu 306 Meds Noted: decadron, novolog, lantus, zofran, remdesivir Skin: No new skin breakdown at this time, WNL Additional Notes: RDN consulted for TPN. Pt is on BiPAP as needed. Previous nutrition was a heart healthy diet with reported intake of 5%. Pt is currently NPO due to emesis. TPN with 20% lipids has been initiated and running at rate of 40mL/hr over 24 hours. TPN w/lipids running at rate of 40mL/hr over 24 hours will provide 1182kcal and 48g of protein, meeting 83% of estimated kcal needs and 63% of estimated protein needs. If pt is to be on TPN snf, recommend increasing TPN rate by 10mL/hr every day until a goal rate of 60mL/hr is met to provide 1522kcal and 72g of protein to meet 107% of estimated kcal needs and 100% of estimated protein needs. Agree with diet order at this time. Will continue to follow. Will monitor labs, medication, wt, and reported intake every T/F
[2021-12-06 14:05] LABS: Transferrin 134 mg/dL (206-381)
[2021-12-06 14:14] LABS: Band Neutrophils Percent 6 % (0-6); Lymphocytes Absolute Manual 0.31 K/mm3 (1.1-4.5); Monocytes Absolute Manual 0.31 K/mm3 (0.1-0.90); Monocytes Percent Manual 1 % (3-9); Neutrophils Absolute Manual 30.96 K/mm3 (1.7-7.2); Neutrophils Percent Manual 92 % (46-73); Total Cells Counted 100
[2021-12-06 14:15] LABS: Hypochromasia 1+ (NORMAL); Platelet Estimate Increased (Adequate)
[2021-12-06 14:16] LABS: Anisocytosis 3+ (NORMAL)
--- NOTE | 2021-12-06 14:57 | WPDGICN ---
Assessment and Plan Assessment and plan (1) Hematemesis: Code(s): K92.0 - Hematemesis Status: Acute Assessment and Plan: will start on iv protonix twice daily- she has not been on it. hold aspirin and plavix for now will monitor for more signs of bleeding and trend h/h I would prefer avoid egd unless obvious more GIB because frailty status with respiratory distress due to covid and sepsis differential includes esophagitis, ulcer, etc (2) Acute on chronic anemia: Code(s): D64.9 - Anemia, unspecified Status: Acute Assessment and Plan: iv protonix, continue to monitor transfuse if hb<7 (3) Septic shock: Code(s): A41.9 - Sepsis, unspecified organism; R65.21 - Severe sepsis with septic shock Status: Acute Assessment and Plan: on admission and improved, she was on levophed initially (4) COVID-19: Code(s): U07.1 - COVID-19 Status: Acute Assessment and Plan: severe covid infection, on remdesivir and iv steroids by primary (5) Large pleural effusion: Code(s): J90 - Pleural effusion, not elsewhere classified Status: Acute Assessment and Plan: s/p thoracentesis on medical treatment (6) Metabolic encephalopathy: Code(s): G93.41 - Metabolic encephalopathy Status: Acute Assessment and Plan: awake but still confused (7) Chronic respiratory failure with hypoxia, on home oxygen therapy: Code(s): J96.11 - Chronic respiratory failure with hypoxia; Z99.81 - Dependence on supplemental oxygen Status: Acute GI Consult Note Consult date/time: 12/06/21 14:57 Reason for consult: hematemesis, COVID pneumonia HPI: Isela Bella is a 80 year old female with medical history of hypertension, diabetes, congestive heart failure. She was admitted 9 days ago with generalized weakness and shortness of breath. She was diagnosed with COVID on 11/24/2021 and found to have pneumonia with large pleural effusion that required thoracentesis. She was hypoxemic and hypotensive on admission, initially admitted to ICU, required levophed and slowly feeling better, now she is in the floor but has been confused. I am called because RN reports that patient had dark emesis with clots, also her hb slowly trending down now 7.3, it has been 9's. Review of Systems Constitutional: Constitutional: Reports fatigue, Reports lethargy and Reports weakness Eyes: Eyes: Reports no additional eye complaints ENT: Comments: hard of hearing Respiratory: Respiratory: Reports dyspnea on exertion Gastrointestinal: Gastrointestinal: Denies abdominal pain, Reports nausea and Reports vomiting Genitourinary: Genitourinary: Denies hematuria Musculoskeletal: Musculoskeletal: Reports no additional musculoskeletal complaints Integumentary/Breasts: Skin/Breast: Denies dry skin Neurologic: Reports confusion Psychiatric: Psychiatric: Reports confusion [facility] Past Medical History Medical History (Updated 12/06/21 @ 15:46 by Blu Levine MD) Acute on chronic anemia Chronic respiratory failure with hypoxia, on home oxygen therapy Congestive heart failure Diabetic peripheral neuropathy Hematemesis Hyperlipidemia Hypertension Hypothyroidism Type 2 diabetes mellitus Ulcerative colitis Surgical History Surgical History History of bilateral knee replacement Family History Family History Other Family history unknown Social History Social History Social History: Surrogate decision maker: Jacquelyn Bella, daughter. Code status: Full code. Smoking status: Former smoker Alcohol intake: unknown Substance use: unknown Spiritual care concerns: No Meds Home Medications and Allergies Home Medications Medication Instructions Recorded Confirmed Type Incruse Ellip
[2021-12-06] MEDS: SODIUM CHLORIDE 0.9% IV 250 ML 30 ML IV CONT (16:03)
[2021-12-06] MEDS: TUBING, BLOOD PLUM PUMP TUBING 1 EACH XX (16:03)
[2021-12-06 17:18] LABS: Glucose Point of Care 236 mg/dl (65-105)
[2021-12-06] MEDS: ATORVASTATIN 40 MG TABLET PO (21:10)
[2021-12-06] MEDS: MESALAMINE 400 MG DELAYED RELEASE CAPSULE 800 MG PO (21:10)
[2021-12-06] MEDS: PANTOPRAZOLE SODIUM IV 40 MG VIAL IV PUSH (21:10)
[2021-12-06 23:33] LABS: Glucose Point of Care 209 mg/dl (65-105)
[2021-12-07] VITALS (27 sets, daily range): BP systolic 59–122; BP diastolic 27–65; PULSE 83–100; RESP 16–29; TEMP 36.6–37.7; O2SAT 94–99
[2021-12-07] MEDS: ALBUTEROL SULFATE NEB 2.5 MG/0.5 ML INH INHALATION ×4 (03:11→21:19)
[2021-12-07 05:31] LABS: Hematocrit 26.1 % (37.0-47.0); Mean Corpuscular HGB Conc 30.7 g/dl (32-36); Mean Corpuscular Hemoglobin 27.4 pg (26-34); Mean Corpuscular Volume 89.4 fl (80-100); Mean Platelet Volume 11.3 fl (7.4-10.4); Platelet Count Result 320 k/mm3 (150-375); Red Blood Count 2.92 M/mm3 (4.2-5.4); Red Cell Distribution Width 17.2 % (11.5-14.5); White Blood Count 46.5 K/mm3 (4.5-10.0)
[2021-12-07 05:37] LABS: Alanine Aminotransferase 19 U/L (4-35); Albumin Level 2.9 g/dL (3.5-5.1); Alkaline Phosphatase 41 U/L (38-126); Anion Gap 6 mmol/L (8-16); Aspartate Amino Transferase 37 U/L (14-36); Bilirubin,Total 0.3 mg/dL (0.2-1.3); Blood Urea Nitrogen 84 mg/dL (7-17); Calcium 8.7 mg/dL (8.4-10.2); Carbon Dioxide 26 mmol/L (22-30); Chloride 103 mmol/L (98-107); Estimated CRCL calculation 23 ml/min; Estimated Glomerular Filt Rate 27; Glucose 185 mg/dL (65-110); Magnesium 1.6 mg/dL (1.6-2.3); Potassium 4.1 mmol/L (3.4-5.0); Sodium 135 mmol/L (137-145)
[2021-12-07 05:50] LABS: INR 1.1; Prothrombin Time 14.5 Seconds (11.1-14.7); Vancomycin Trough 22.2 ug/mL (10.0-20.0)
[2021-12-07] MEDS: MESALAMINE 400 MG DELAYED RELEASE CAPSULE 800 MG PO (06:15)
[2021-12-07] MEDS: CENTRAL LINE FLUSH 10 ML IV PUSH ×4 (06:16→20:46)
[2021-12-07] MEDS: LEVOTHYROXINE SODIUM 150 MCG TABLET PO (06:16)
[2021-12-07 07:01] LABS: Anisocytosis 1+ (NORMAL); Band Neutrophils Percent 7 % (0-6); Lymphocytes Absolute Manual 0.46 K/mm3 (1.1-4.5); Monocytes Absolute Manual 0.93 K/mm3 (0.1-0.90); Monocytes Percent Manual 2 % (3-9); Neutrophils Percent Manual 90 % (46-73); Ovalocytes 1+ (NORMAL); Platelet Estimate Adequate (Adequate); Total Cells Counted 100
[2021-12-07] MEDS: UMECLIDINIUM BROMIDE 62.5 MCG ELLIPTA 1 PUFF INHALATION (08:23)
[2021-12-07 09:16] LABS: Glucose Point of Care 206 mg/dl (65-105)
[2021-12-07] MEDS: PANTOPRAZOLE SODIUM IV 40 MG VIAL IV PUSH ×2 (09:50→20:46)
[2021-12-07] MEDS: FUROSEMIDE INJ 40 MG/4 ML VIAL IV PUSH (09:53)
--- NOTE | 2021-12-07 09:57 | WPDGIPROGNO ---
Progress Note: A&P Assessment and Plan (1) Hematemesis: Code(s): K92.0 - Hematemesis Status: Acute Assessment and Plan: resolved and hb stable at 8, RN reports no more bleeding. Probably she had gastritis, esophagitis, etc given frailty status on admission with severe sepsis due to COVID, prefer conservative approach. Of course if hb drops or obvious ongoing bleeding then will perform EGD ok to advance diet as tolerated (should be ok to discontinue TPN when she starts eating more) iv protonix twice daily (2) Acute on chronic anemia: Code(s): D64.9 - Anemia, unspecified Status: Acute Assessment and Plan: hb low but stable today (3) COVID-19: Code(s): U07.1 - COVID-19 Status: Acute Assessment and Plan: s/p steroids and remdesivir (4) Septic shock: Code(s): A41.9 - Sepsis, unspecified organism; R65.21 - Severe sepsis with septic shock Status: Acute Assessment and Plan: resolved, not longer on pressors (5) Leukocytosis: Code(s): D72.829 - Elevated white blood cell count, unspecified Status: Acute Assessment and Plan: noted worsening wbc- she received steroids on medical treatment monitor by primary team, she is afebrile (6) Large pleural effusion: Code(s): J90 - Pleural effusion, not elsewhere classified Status: Acute Assessment and Plan: s/p thoracentesis (7) Poor appetite: Code(s): R63.0 - Anorexia Status: Acute Subjective Date/time seen: 12/07/21 09:57 Interval history: patient is in isolation but comfortable, no more report of vomiting or gib per staff educator. She is on TPN Review of Systems Review of Systems: All systems reviewed & are unremarkable except as noted in HPI and below Exam Const: Other: frail, lying in bed and confused. She denies pain but can not give me a good history HENMT: General nose exam: Normal nares present Eyes: Sclera: sclerae normal Neck: Neck: supple Resp: Auscultation: diminished lung sounds Cardio: Rate: regular rate GI: GI Palp: Yes Soft to palpation, No Tenderness to palpation present (GI) and No Guarding due to palpation present (GI) Auscultation: normal bowel sounds Skin: Other: pale Neuro: Speech: normal speech Extrem: General: normal to inspection Psych: Other: awake and alert but confused Objective Data Vital Signs Vital Signs: Vital Signs - 24 hr 12/06/21 10:00 12/06/21 10:35 12/06/21 10:40 Temperature Pulse Rate 97 Respiratory Rate Blood Pressure 68/31 L 79/32 L Pulse Oximetry 12/06/21 11:30 12/06/21 11:40 12/06/21 12:00 Temperature 96.9 F L Pulse Rate 101 H 92 Respiratory Rate 22 H Blood Pressure 97/49 L 79/32 L 56/35 L Pulse Oximetry 94 100 12/06/21 14:00 12/06/21 14:03 12/06/21 14:10 Temperature Pulse Rate 81 88 89 Respiratory Rate 20 20 Blood Pressure Pulse Oximetry 12/06/21 15:36 12/06/21 15:55 12/06/21 16:00 Temperature 97.5 F L 97.6 F 97.3 F L Pulse Rate 107 H 99 66 Respiratory Rate 12 14 22 H Blood Pressure 79/32 L 69/49 L 91/73 L Pulse Oximetry 95 97 95 12/06/21 18:00 12/06/21 18:46 12/06/21 20:00 Temperature 98.8 F 97.9 F Pulse Rate 97 98 99 Respiratory Rate 16 20 Blood Pressure 103/42 L 96/40 L Pulse Oximetry 97 98 12/06/21 21:14 12/06/21 21:15 12/06/21 21:25 Temperature Pulse Rate 92 95 Respiratory Rate 18 18 Blood Pressure Pulse Oximetry 98 12/06/21 22:00 12/06/21 23:53 12/07/21 00:00 Temperature 97.9 F Pulse Rate 100 75 98 Respiratory Rate 20 20 Blood Pressure 132/82 Pulse Oximetry 99 99 12/07/21 02:00 12/07/21 03:13 12/07/21 03:21 Temperature Pulse Rate 98 94 98 Respiratory Rate 16 16 Blood Pressure Pulse Oximetry 12/07/21 04:00 12/07/21 05:50 12/07/21 08:00 Temperature 97.9 F 98.5 F Pulse Rate 95 100 100 Respiratory Rate 18 20 Blood Pressure 101/65 107/56 L Pulse Oximetry 99 94
[2021-12-07] MEDS: INSULIN ASPART (*BKC) 100 UNITS/ML SUB-Q ×2 (10:07→18:51)
[2021-12-07] MEDS: INSULIN GLARGINE (*BKC) 100 UNITS/ML 15 UNITS SUB-Q (10:07)
[2021-12-07 12:28] LABS: Hematocrit 25.4 % (37.0-47.0); Hemoglobin 8.1 g/dL (12.0-15.0); Mean Corpuscular HGB Conc 31.9 g/dl (32-36); Mean Corpuscular Hemoglobin 28.1 pg (26-34); Mean Corpuscular Volume 88.2 fl (80-100); Mean Platelet Volume 11.3 fl (7.4-10.4); Platelet Count Result 298 k/mm3 (150-375); Red Blood Count 2.88 M/mm3 (4.2-5.4); Red Cell Distribution Width 17.2 % (11.5-14.5)
[2021-12-07 12:42] LABS: Triglycerides 46 mg/dL (<150)
[2021-12-07 12:42] LABS: Lactic Acid Reflex 1.6 mmol/L (0.7-2.1)
[2021-12-07 12:53] LABS: Glucose Point of Care 177 mg/dl (65-105)
[2021-12-07 13:02] LABS: Band Neutrophils Percent 7 % (0-6); Lymphocytes Absolute Manual 0.48 K/mm3 (1.1-4.5); Monocytes Absolute Manual 0.96 K/mm3 (0.1-0.90); Monocytes Percent Manual 2 % (3-9); Neutrophils Absolute Manual 46.56 K/mm3 (1.7-7.2); Neutrophils Percent Manual 90 % (46-73); Platelet Estimate Adequate (Adequate); Total Cells Counted 100
[2021-12-07 13:04] LABS: Anisocytosis 1+ (NORMAL); Hypochromasia 1+ (NORMAL)
[2021-12-07 13:05] LABS: Ovalocytes 1+ (NORMAL)
[2021-12-07] MEDS: SODIUM CHLORIDE 0.9% IV 250 ML 999 ML IV CONT (13:46)
[2021-12-07] MEDS: FAT EMULSIONS IV 20% 250 ML 20.8 ML IVPB (13:47)
[2021-12-07] MEDS: AMINO ACIDS 5%/D15W/E-LYTES/CA 2,000 ML with MULTIVITAMINS-12 INJ VIAL 1 2.5 ML, MULTIV... 40 ML IV CONT (13:47)
--- NOTE | 2021-12-07 14:24 | PCOTNOTE ---
Per RN, Patient is not medically stable to be seen for therapy services at this time. Per RN, Patient is getting ready to go to ICU.
--- NOTE | 2021-12-07 14:31 | PCPTNOTE ---
Per RN: to hold therapy, patient not medically appropriate for therapy at this time.
[2021-12-07] MEDS: SODIUM CHLORIDE 0.9% IV 250 ML 30 ML IV CONT (16:00)
[2021-12-07 16:31] LABS: Hematocrit 25.5 % (37.0-47.0); Hemoglobin 8.2 g/dL (12.0-15.0); Mean Corpuscular HGB Conc 32.2 g/dl (32-36); Mean Corpuscular Hemoglobin 28.6 pg (26-34); Mean Corpuscular Volume 88.9 fl (80-100); Mean Platelet Volume 11.5 fl (7.4-10.4); Platelet Count Result 293 k/mm3 (150-375); Red Blood Count 2.87 M/mm3 (4.2-5.4)
[2021-12-07 16:41] LABS: INR 1.2; Prothrombin Time 14.6 Seconds (11.1-14.7)
[2021-12-07 16:42] LABS: Partial Thromboplastin Time 24.7 SECONDS (22.3-36.8)
[2021-12-07 16:43] LABS: Lactic Acid Reflex 1.4 mmol/L (0.7-2.1)
[2021-12-07 16:45] LABS: Alanine Aminotransferase 19 U/L (4-35); Albumin Level 2.8 g/dL (3.5-5.1); Alkaline Phosphatase 49 U/L (38-126); Anion Gap 8 mmol/L (8-16); Aspartate Amino Transferase 45 U/L (14-36); Bilirubin,Total 0.2 mg/dL (0.2-1.3); Blood Urea Nitrogen 96 mg/dL (7-17); Calcium 8.7 mg/dL (8.4-10.2); Carbon Dioxide 24 mmol/L (22-30); Chloride 102 mmol/L (98-107); Estimated CRCL calculation 19 ml/min; Estimated Glomerular Filt Rate 23; Glucose 257 mg/dL (65-110); Magnesium 1.6 mg/dL (1.6-2.3); Potassium 4.4 mmol/L (3.4-5.0); Sodium 134 mmol/L (137-145)
[2021-12-07 16:55] LABS: White Blood Count 50.3 K/mm3 (4.5-10.0)
[2021-12-07 17:03] LABS: Band Neutrophils Percent 9 % (0-6); Monocytes Absolute Manual 3.01 K/mm3 (0.1-0.90); Monocytes Percent Manual 6 % (3-9); Neutrophils Absolute Manual 46.27 K/mm3 (1.7-7.2); Neutrophils Percent Manual 83 % (46-73); Total Cells Counted 100
[2021-12-07 17:04] LABS: Anisocytosis 3+ (NORMAL); Platelet Estimate Adequate (Adequate)
[2021-12-07] MEDS: NOREPINEPHRINE 8 MG/D5W 250 ML 8 MG/250 ML BAG 18.75 MG IV CONT (18:16)
[2021-12-07 18:48] LABS: Glucose Point of Care 222 mg/dl (65-105)
[2021-12-08] VITALS (33 sets, daily range): BP systolic 75–135; BP diastolic 39–95; PULSE 75–105; RESP 18–27; TEMP 36.9–37.8; O2SAT 94–100
[2021-12-08 00:03] LABS: Glucose Point of Care 241 mg/dl (65-105)
[2021-12-08] MEDS: NOREPINEPHRINE 8 MG/D5W 250 ML 8 MG/250 ML BAG 22.5 MG IV CONT (00:47)
[2021-12-08] MEDS: ALBUTEROL SULFATE NEB 2.5 MG/0.5 ML INH INHALATION ×4 (02:56→20:15)
[2021-12-08] MEDS: CENTRAL LINE FLUSH 10 ML IV PUSH ×4 (04:45→20:14)
[2021-12-08 05:22] LABS: Hematocrit 32.8 % (37.0-47.0); Hemoglobin 10.5 g/dL (12.0-15.0); Mean Corpuscular Hemoglobin 27.5 pg (26-34); Mean Corpuscular Volume 85.9 fl (80-100); Mean Platelet Volume 11.6 fl (7.4-10.4); Platelet Count Result 348 k/mm3 (150-375); Red Blood Count 3.82 M/mm3 (4.2-5.4); Red Cell Distribution Width 16.7 % (11.5-14.5); White Blood Count 49.5 K/mm3 (4.5-10.0)
[2021-12-08 05:38] LABS: Alanine Aminotransferase 19 U/L (4-35); Albumin Level 3.1 g/dL (3.5-5.1); Alkaline Phosphatase 109 U/L (38-126); Anion Gap 13 mmol/L (8-16); Aspartate Amino Transferase 49 U/L (14-36); Bilirubin,Total 0.3 mg/dL (0.2-1.3); Blood Urea Nitrogen 96 mg/dL (7-17); Calcium 8.9 mg/dL (8.4-10.2); Carbon Dioxide 24 mmol/L (22-30); Chloride 98 mmol/L (98-107); Estimated CRCL calculation 23 ml/min; Estimated Glomerular Filt Rate 27; Glucose 343 mg/dL (65-110); Magnesium 1.7 mg/dL (1.6-2.3); Phosphorus 3.5 mg/dL (2.5-4.5); Potassium 3.8 mmol/L (3.4-5.0); Sodium 135 mmol/L (137-145)
[2021-12-08 05:39] LABS: INR 1.1; Prothrombin Time 14.4 Seconds (11.1-14.7)
[2021-12-08] MEDS: INSULIN ASPART (*BKC) 100 UNITS/ML SUB-Q ×4 (08:06→23:56)
[2021-12-08] MEDS: ALBUMIN HUMAN 25% 25 GM/100 ML 100 ML IVPB ×4 (08:35→23:58)
[2021-12-08] MEDS: UMECLIDINIUM BROMIDE 62.5 MCG ELLIPTA 1 PUFF INHALATION (09:02)
--- NOTE | 2021-12-08 09:11 | WPDINTPN ---
Progress Note: A&P Assessment and Plan (1) Shock: Code(s): R57.9 - Shock, unspecified Status: Acute Assessment and Plan: Patient shock, could be related to hemorrhagic versus infectious -UTI, pneumonia, obtain chest x-ray and UA -WBC count is 49.5 -patient is on vancomycin cefepime, and aztreonam as patient is allergic to multiple antibiotics -blood and urine cultures have been obtained -will check lactic acid and CRP (2) Acute kidney injury: Code(s): N17.9 - Acute kidney failure, unspecified Status: Acute Assessment and Plan: Likely secondary to shock, hypotension, decreased end organ perfusion Creatinine is 1.8 (0.80 on 12/05/2021) Pt is on TPN Pt received 1 unit PRBCs on 12/06 and 1 unit on 12/07 Monitor urine output electrolytes and creatinine (3) Acute on chronic anemia: Code(s): D64.9 - Anemia, unspecified Status: Acute Assessment and Plan: Patient had hematemesis in the IMU, also had some melena -hemoglobin did drop to 7.0 in 12/06/2021 -patient received 1 unit of packed RBCs and 2 9 and 1 unit on 12/07 -hemoglobin is stable this morning at 10.5, no episodes of hematemesis -discussed with GI, will hold endoscopy given patient may end getting intubated during endoscopy. -will continue to monitor hemoglobin levels, patient bleeds or is anemic, GI will scope her (4) Hematemesis: Code(s): K92.0 - Hematemesis Status: Acute Assessment and Plan: As above (5) Pneumonia: Qualifiers: Laterality: left Lung location: unspecified part of lung Pneumonia type: due to unspecified organism Qualified Code(s): J18.9 - Pneumonia, unspecified organism Code(s): J18.9 - Pneumonia, unspecified organism Status: Acute Assessment and Plan: Septic shock could be related to pneumonia -obtain chest x-ray, (6) Large pleural effusion: Code(s): J90 - Pleural effusion, not elsewhere classified Status: Acute Assessment and Plan: 11/28/2021: left-sided thoracentesis with 1000 mL of clear dark yellow fluid removed on 11/28/2021. 12/04/2021: Repeat left-sided thoracentesis with removal of 1000 mL of clear light yellow fluid. -will repeat chest x-ray Hold aspirin and Plavix as per cardiology's request (7) Type 2 diabetes mellitus: Code(s): E11.9 - Type 2 diabetes mellitus without complications Status: Chronic Assessment and Plan: Sliding scale insulin Increase Lantus (8) Congestive heart failure: Code(s): I50.9 - Heart failure, unspecified Status: Chronic Assessment and Plan: Hold Lasix at this time Off IV fluids Echocardiogram 11/03/2021 EF 65-70%, grade 1 diastolic dysfunction, RV systolic function is reduced, severe aortic valve sclerosis, severe aortic valve stenosis (9) Chronic respiratory failure with hypoxia, on home oxygen therapy: Code(s): J96.11 - Chronic respiratory failure with hypoxia; Z99.81 - Dependence on supplemental oxygen Status: Acute Assessment and Plan: Patient is on oxygen at home -continue bronchodilators (10) Hypothyroidism: Code(s): E03.9 - Hypothyroidism, unspecified Status: Chronic Assessment and Plan: Continue levothyroxine (11) COVID-19: Code(s): U07.1 - COVID-19 Status: Acute Assessment and Plan: Patient was tested for COVID 19 as an outpatient on 11/24. She is on 2 L oxygen at home and continues to be on. She does have some patchy infiltrates on the right lung All the left lung is completely atelectatic. -completed a course of dexamethasone -Remdesivir was on hold because of her GFR (12) Poor appetite: Code(s): R63.0 - Anorexia Status: Acute Assessment and Plan: Patient started on TPN Additional Plan DVT prophylaxis -.SCDs Code Status -do not resuscitate Critical care time spent: 44 minutes This dictation may have been done utilizing a voice recogn
[2021-12-08] MEDS: PANTOPRAZOLE SODIUM IV 40 MG VIAL IV PUSH ×2 (09:14→20:14)
[2021-12-08] MEDS: INSULIN GLARGINE (*BKC) 100 UNITS/ML 25 UNITS SUB-Q (09:14)
[2021-12-08 09:45] LABS: Vancomycin Trough 16.9 ug/mL (10.0-20.0)
[2021-12-08 10:44] LABS: Lactic Acid Reflex 1.5 mmol/L (0.7-2.1)
[2021-12-08 11:17] LABS: CRP 32.9 mg/dL (<1.0)
--- NOTE | 2021-12-08 12:08 | PCNFU ---
Nutrition Follow-Up Complete: Inadequate oral intake related to sepsis, pneumonia as evidenced by reported intake of 0% Goal: Pt to meet 75% of estimated nutritional needs Patient is progressing towards goal. We will continue current goal. Pt current nutrition is TPN at 40 ml/hr Last recorded weight is 73.7 kg, up from 72 kg on admit. Bowel Motility: +BM reported 12/06 Labs Reviewed: Glu 343, BUN 96, GFR 27, Alb 3.1, Cr 1.8,Hct 32.8,Hgb 10.5, Na 135 Meds Noted: Remdesivir, Protonix, Vancomycin, Levophed,NovoLog, Clinimix 5/15 at 40 ml/hr plus 250 ml 20% Lipid Emulsion. Skin: WNL Additional Notes: Patient had been requiring continuos Bipap. TPN started on 12/06, providing 1180 kcals and 48 gms protein. Chest X-ray and Abdominal x-ray ordered. Current TPN is meeting 83% of caloric needs/63% protein needs. Recommend goal rate of TPN at 60 ml/hr providing 1522 kcals/72 gms protein. Agree with diet orders. Will monitor in ICU rounds and reassessing every Saturday and Saturday.
--- NOTE | 2021-12-08 12:09 | PCPTNOTE ---
Attempted PT re-eval, Per RN, patient not medically stable to participate in skilled therapy. Patient's PT orders placed on hold at this time.
[2021-12-08 12:22] LABS: Glucose Point of Care 347 mg/dl (65-105)
[2021-12-08] MEDS: AZTREONAM 1 GM in DEXTROSE 5% IN WATER 50 ML 100 ML IVPB ×2 (13:51→21:12)
[2021-12-08] MEDS: AMINO ACIDS 5%/D15W/E-LYTES/CA 2,000 ML with MULTIVITAMINS-12 INJ VIAL 1 2.5 ML, MULTIV... 40 ML IV CONT (14:23)
[2021-12-08] MEDS: FAT EMULSIONS IV 20% 250 ML 20.8 ML IVPB (14:24)
--- NOTE | 2021-12-08 15:49 | WPDGIPROGNO ---
Progress Note: A&P Assessment and Plan (1) Hematemesis: Code(s): K92.0 - Hematemesis Status: Acute Assessment and Plan: had melena yesterday and received total 2 units prbc with good response, hb up to 10 on iv protonix, she was transferred to icu because hypotension given frailty status with septic shock, COVID I still prefer conservative approach. I am afraid that won't tolerate anesthesia. Of course if significant drop of hb then consider EGD iv protonix twice daily prognosis is guarded (2) Acute on chronic anemia: Code(s): D64.9 - Anemia, unspecified Status: Acute Assessment and Plan: s/p prbc, hb up to 10 continue to monitor (3) Septic shock: Code(s): A41.9 - Sepsis, unspecified organism; R65.21 - Severe sepsis with septic shock Status: Acute Assessment and Plan: she is back in ICU with levophed (4) COVID-19: Code(s): U07.1 - COVID-19 Status: Acute Assessment and Plan: s/p steroids and remdesivir (5) Leukocytosis: Code(s): D72.829 - Elevated white blood cell count, unspecified Status: Acute Assessment and Plan: worsening wbc on medical treatment (6) Large pleural effusion: Code(s): J90 - Pleural effusion, not elsewhere classified Status: Acute Assessment and Plan: resolved after thoracentesis (7) Poor appetite: Code(s): R63.0 - Anorexia Status: Acute Assessment and Plan: she has been getting TPN Subjective Date/time seen: 12/08/21 15:49 Interval history: no more report of hematemesis but had yesterday melena, low BP again and transferred back to ICU and started on levophed. She is awake but still confused, she is getting TPN Review of Systems Review of Systems: All systems reviewed & are unremarkable except as noted in HPI and below Exam Const: Other: frail, lying in bed and confused. HENMT: General nose exam: Normal nares present Eyes: Sclera: sclerae normal Neck: Neck: supple Resp: Effort & Inspection: normal respiratory effort Auscultation: diminished lung sounds Cardio: Rate: regular rate GI: GI Palp: Yes Soft to palpation, No Tenderness to palpation present (GI) and No Guarding due to palpation present (GI) Auscultation: normal bowel sounds Skin: Other: pale Neuro: Speech: normal speech Other: awake and alert but confused, only answers some questions with yes or no Extrem: General: normal to inspection Psych: Other: awake and alert but confused Objective Data Vital Signs Vital Signs: Vital Signs - 24 hr 12/07/21 16:00 12/07/21 16:28 12/07/21 16:44 Temperature 99.8 F H 98.1 F 98.4 F Pulse Rate 91 96 87 Respiratory Rate 29 H 24 H 29 H Blood Pressure 91/53 L 76/50 L 92/53 L Pulse Oximetry 94 97 94 12/07/21 17:44 12/07/21 18:00 12/07/21 18:16 Temperature 99.1 F 99.7 F H Pulse Rate 93 96 97 Respiratory Rate 23 H 25 H Blood Pressure 120/43 L 109/47 L 78/43 L Pulse Oximetry 95 95 12/07/21 18:18 12/07/21 18:44 12/07/21 20:00 Temperature 99.7 F H Pulse Rate 97 97 93 Respiratory Rate 25 H Blood Pressure 100/39 L 110/55 L Pulse Oximetry 95 94 12/07/21 20:20 12/07/21 20:25 12/07/21 20:46 Temperature 99.3 F Pulse Rate 83 97 95 Respiratory Rate 22 H Blood Pressure 122/52 L 122/52 L Pulse Oximetry 98 96 12/07/21 22:00 12/08/21 00:00 12/08/21 00:43 Temperature 98.9 F 98.7 F Pulse Rate 94 84 77 Respiratory Rate 19 20 Blood Pressure 108/47 L 106/42 L 111/70 Pulse Oximetry 98 98 12/08/21 00:47 12/08/21 01:48 12/08/21 02:00 Temperature 98.7 F Pulse Rate 98 85 91 Respiratory Rate 21 H Blood Pressure 109/56 L 109/95 H 107/80 Pulse Oximetry 98 12/08/21 02:56 12/08/21 03:04 12/08/21 04:00 Temperature 98.6 F Pulse Rate 98 83 75 Respiratory Rate 20 19 22 H Blood Pressure 107/60 Pulse Oximetry 98 12/08/21 04:43 12/08/21 05:03 02/11/22 06:00 Temperature 98.7 F Pulse Rate 80 94
[2021-12-08 17:21] LABS: Glucose Point of Care 264 mg/dl (65-105)
--- NOTE | 2021-12-08 17:27 | PM.IMPN ---
Progress Note: A&P Assessment and Plan (1) Shock: Code(s): R57.9 - Shock, unspecified Status: Acute Assessment and Plan: Patient shock, could be related to hemorrhagic versus infectious -UTI, pneumonia, -WBC count is 49.5 -patient is on vancomycin cefepime, and aztreonam as patient is allergic to multiple antibiotics -blood and urine cultures have been obtained On IV Levophed (2) Acute kidney injury: Code(s): N17.9 - Acute kidney failure, unspecified Status: Acute Assessment and Plan: Likely secondary to shock, hypotension, decreased end organ perfusion Creatinine is 1.8 (0.80 on 12/05/2021) Pt is on TPN Pt received 1 unit PRBCs on 12/06 and 1 unit on 12/07 Monitor urine output electrolytes and creatinine (3) Acute on chronic anemia: Code(s): D64.9 - Anemia, unspecified Status: Acute Assessment and Plan: Patient had hematemesis in the IMU, also had some melena -hemoglobin did drop to 7.0 in 12/06/2021 -patient received 1 unit of packed RBCs and 2 9 and 1 unit on 12/07 -hemoglobin is stable this morning at 10.5, no episodes of hematemesis -discussed with GI, will hold endoscopy given patient may end up getting intubated during endoscopy. -will continue to monitor hemoglobin levels, patient bleeds or is anemic, GI will scope her (4) Hematemesis: Code(s): K92.0 - Hematemesis Status: Acute Assessment and Plan: As above (5) Pneumonia: Qualifiers: Laterality: left Lung location: unspecified part of lung Pneumonia type: due to unspecified organism Qualified Code(s): J18.9 - Pneumonia, unspecified organism Code(s): J18.9 - Pneumonia, unspecified organism Status: Acute Assessment and Plan: Septic shock could be related to pneumonia Chest x-ray with complete opacification of left hemithorax and left for shift of the heart and mediastinum consistent with the left look atelectasis (6) Large pleural effusion: Code(s): J90 - Pleural effusion, not elsewhere classified Status: Acute Assessment and Plan: 11/28/2021: left-sided thoracentesis with 1000 mL of clear dark yellow fluid removed on 11/28/2021. 12/04/2021: Repeat left-sided thoracentesis with removal of 1000 mL of clear light yellow fluid. Hold aspirin and Plavix as per cardiology's request (7) Type 2 diabetes mellitus: Code(s): E11.9 - Type 2 diabetes mellitus without complications Status: Chronic Assessment and Plan: Sliding scale insulin Increase Lantus (8) Congestive heart failure: Code(s): I50.9 - Heart failure, unspecified Status: Chronic Assessment and Plan: Hold Lasix at this time Off IV fluids Echocardiogram 11/03/2021 EF 65-70%, grade 1 diastolic dysfunction, RV systolic function is reduced, severe aortic valve sclerosis, severe aortic valve stenosis (9) Chronic respiratory failure with hypoxia, on home oxygen therapy: Code(s): J96.11 - Chronic respiratory failure with hypoxia; Z99.81 - Dependence on supplemental oxygen Status: Acute Assessment and Plan: Patient is on oxygen at home -continue bronchodilators (10) Hypothyroidism: Code(s): E03.9 - Hypothyroidism, unspecified Status: Chronic Assessment and Plan: Continue levothyroxine (11) COVID-19: Code(s): U07.1 - COVID-19 Status: Acute Assessment and Plan: Patient was tested for COVID 19 as an outpatient on 11/24. She is on 2 L oxygen at home and continues to be on. She does have some patchy infiltrates on the right lung All the left lung is completely atelectatic. -completed a course of dexamethasone -Remdesivir was on hold because of her GFR (12) Poor appetite: Code(s): R63.0 - Anorexia Status: Acute Assessment and Plan: Patient started on TPN Additional Plan DVT prophylaxis -.SCDs Code Status -do not resuscitate On Subjective Date/time seen: 12/08/21
[2021-12-08] MEDS: NOREPINEPHRINE 8 MG/D5W 250 ML 8 MG/250 ML BAG 11.25 MG IV CONT (17:57)
[2021-12-09] VITALS (47 sets, daily range): BP systolic 79–126; BP diastolic 36–65; PULSE 68–111; RESP 20–28; TEMP 36.9–37.6; O2SAT 84–100
[2021-12-09 00:24] LABS: Glucose Point of Care 213 mg/dl (65-105)
[2021-12-09] MEDS: ALBUTEROL SULFATE NEB 2.5 MG/0.5 ML INH INHALATION ×4 (03:30→20:34)
[2021-12-09 05:05] LABS: Hematocrit 24.4 % (37.0-47.0); Hemoglobin 7.8 g/dL (12.0-15.0); Mean Corpuscular Hemoglobin 27.6 pg (26-34); Mean Corpuscular Volume 86.2 fl (80-100); Mean Platelet Volume 11.7 fl (7.4-10.4); Platelet Count Result 245 k/mm3 (150-375); Red Blood Count 2.83 M/mm3 (4.2-5.4); Red Cell Distribution Width 16.4 % (11.5-14.5); White Blood Count 30.7 K/mm3 (4.5-10.0)
[2021-12-09 05:14] LABS: Alanine Aminotransferase 13 U/L (4-35); Albumin Level 3.3 g/dL (3.5-5.1); Alkaline Phosphatase 71 U/L (38-126); Anion Gap 8 mmol/L (8-16); Aspartate Amino Transferase 34 U/L (14-36); Bilirubin,Total 0.2 mg/dL (0.2-1.3); Blood Urea Nitrogen 95 mg/dL (7-17); Calcium 8.4 mg/dL (8.4-10.2); Carbon Dioxide 25 mmol/L (22-30); Chloride 102 mmol/L (98-107); Estimated CRCL calculation 24 ml/min; Estimated Glomerular Filt Rate 29; Glucose 226 mg/dL (65-110); Magnesium 1.6 mg/dL (1.6-2.3); Phosphorus 4.2 mg/dL (2.5-4.5); Potassium 3.3 mmol/L (3.4-5.0); Sodium 135 mmol/L (137-145)
[2021-12-09 05:20] LABS: INR 1.3; Prothrombin Time 15.4 Seconds (11.1-14.7)
[2021-12-09] MEDS: INSULIN ASPART (*BKC) 100 UNITS/ML SUB-Q ×3 (05:23→17:47)
[2021-12-09] MEDS: AZTREONAM 1 GM in DEXTROSE 5% IN WATER 50 ML 100 ML IVPB ×3 (05:25→21:05)
[2021-12-09] MEDS: CENTRAL LINE FLUSH 10 ML IV PUSH ×4 (05:26→21:06)
[2021-12-09] MEDS: ALBUMIN HUMAN 25% 25 GM/100 ML 100 ML IVPB ×2 (05:26→11:08)
[2021-12-09] MEDS: NOREPINEPHRINE 8 MG/D5W 250 ML 8 MG/250 ML BAG 37.5 MG IV CONT (05:32)
[2021-12-09 05:36] LABS: Glucose Point of Care 233 mg/dl (65-105)
[2021-12-09] MEDS: INSULIN GLARGINE (*BKC) 100 UNITS/ML 25 UNITS SUB-Q (08:23)
[2021-12-09] MEDS: PANTOPRAZOLE SODIUM IV 40 MG VIAL IV PUSH ×2 (08:23→21:06)
[2021-12-09] MEDS: NOREPINEPHRINE 8 MG/D5W 250 ML 8 MG/250 ML BAG 45 MG IV CONT ×2 (11:09→16:33)
[2021-12-09 11:12] LABS: Glucose Point of Care 234 mg/dl (65-105)
--- NOTE | 2021-12-09 11:28 | WPDGIPROGNO ---
Progress Note: A&P Assessment and Plan (1) Hematemesis: Code(s): K92.0 - Hematemesis Status: Acute Assessment and Plan: another episode of bloody BM yesterday hb 7.8 and she is post 2 units prbc 2 days ago continue with iv protonix, on levophed that could also be from sepsis/COVID conservative approach, holding off EGD because will be high risk for respiratory failure with anesthesia unless more overt gib, prognosis is guarded. she is on TPN for now (2) Acute on chronic anemia: Code(s): D64.9 - Anemia, unspecified Status: Acute Assessment and Plan: continue to monitor h/h iv protonix (3) Septic shock: Code(s): A41.9 - Sepsis, unspecified organism; R65.21 - Severe sepsis with septic shock Status: Acute Assessment and Plan: continue on levophed (4) COVID-19: Code(s): U07.1 - COVID-19 Status: Acute Assessment and Plan: s/p steroids and remdesivir (5) Leukocytosis: Code(s): D72.829 - Elevated white blood cell count, unspecified Status: Acute Assessment and Plan: still high but trending down now on medical treatment (6) Large pleural effusion: Code(s): J90 - Pleural effusion, not elsewhere classified Status: Acute Assessment and Plan: resolved after thoracentesis (7) Poor appetite: Code(s): R63.0 - Anorexia Status: Acute Assessment and Plan: she has been getting TPN Subjective Date/time seen: 12/09/21 11:28 Interval history: no report of hematemesis but another bloody BM per RN. Patient is in ICU, awake but confused (condition mostly unchanged), on levophed Review of Systems Review of Systems: All systems reviewed & are unremarkable except as noted in HPI and below Exam Const: Other: frail, lying in bed and confused. HENMT: General nose exam: Normal nares present Eyes: Sclera: sclerae normal Neck: Neck: supple Resp: Auscultation: diminished lung sounds Other: coarse BS Cardio: Rate: regular rate GI: GI Palp: Yes Soft to palpation, Yes Tenderness to palpation present (GI) (diffusely, no rebound) and No Guarding due to palpation present (GI) Auscultation: normal bowel sounds Skin: Other: pale Neuro: Speech: normal speech Other: awake and alert but confused, only answers some questions with yes or no Extrem: General: normal to inspection Psych: Other: awake and alert but confused Objective Data Vital Signs Vital Signs: Vital Signs - 24 hr 12/08/21 12:00 12/08/21 13:25 12/08/21 13:36 Temperature 98.4 F Pulse Rate 89 97 98 Respiratory Rate 23 H 24 H 23 H Blood Pressure 135/60 Pulse Oximetry 97 12/08/21 13:38 12/08/21 14:00 12/08/21 16:00 Temperature 98.9 F 99.3 F Pulse Rate 98 80 93 Respiratory Rate 22 H 22 H Blood Pressure 102/48 L 109/56 L Pulse Oximetry 96 99 100 12/08/21 16:12 12/08/21 17:57 12/08/21 18:00 Temperature 99.8 F H Pulse Rate 97 97 105 H Respiratory Rate 22 H Blood Pressure 119/42 L 119/42 L 101/53 L Pulse Oximetry 94 12/08/21 20:00 12/08/21 20:15 12/08/21 20:16 Temperature 100.1 F H Pulse Rate 103 H 97 99 Respiratory Rate 25 H 25 H Blood Pressure 90/47 L 90/47 L Pulse Oximetry 96 12/08/21 20:23 12/08/21 22:00 12/08/21 22:15 Temperature 99.8 F H Pulse Rate 92 84 94 Respiratory Rate 22 H 27 H Blood Pressure 87/39 L 76/42 L Pulse Oximetry 96 12/08/21 22:29 12/08/21 22:36 12/08/21 22:40 Temperature Pulse Rate 94 88 75 Respiratory Rate Blood Pressure 76/42 L 75/43 L 90/44 L Pulse Oximetry 12/09/21 00:00 12/09/21 00:49 12/09/21 00:50 Temperature 99.6 F Pulse Rate 103 H 81 Respiratory Rate 25 H Blood Pressure 104/47 L 90/43 L Pulse Oximetry 94 88 L 12/09/21 02:00 12/09/21 03:31 12/09/21 04:00 Temperature 99.2 F 99 F Pulse Rate 91 93 83 Respiratory Rate 28 H 24 H 26 H Blood Pressure 99/53 L 90/51 L Pulse Oximetry 92 94 12/09/21 04:26 12/09
--- NOTE | 2021-12-09 11:52 | WPDINTPN ---
Progress Note: A&P Assessment and Plan (1) Shock: Code(s): R57.9 - Shock, unspecified Status: Acute Assessment and Plan: Patient shock, could be related to hemorrhagic versus infectious -UTI, pneumonia, -chest x-ray shows complete opacification of left side again -WBC count is is trending down -patient is on vancomycin, cefepime and aztreonam as patient is allergic to multiple antibiotics -12/07 preliminary blood cultures are negative x2 -12/07: Urine cultures pending -lactic acid is normal, significant elevation of CRP: 32.9 (2) Acute kidney injury: Code(s): N17.9 - Acute kidney failure, unspecified Status: Acute Assessment and Plan: Likely secondary to shock, hypotension, decreased end organ perfusion Creatinine is 1.7 this morning (0.80 on 12/05/2021) Pt is on TPN Pt received 1 unit PRBCs on 12/06 and 1 unit on 12/07 -patient on albumin -Monitor urine output electrolytes and creatinine (3) Acute on chronic anemia: Code(s): D64.9 - Anemia, unspecified Status: Acute Assessment and Plan: Patient had hematemesis in the IMU, also had some melena -hemoglobin did drop to 7.0 in 12/06/2021 -patient received 1 unit of packed RBCs and 2 9 and 1 unit on 12/07 -hemoglobin trending down to 7.8 this morning, no episodes of hematemesis but she had a bloody bowel movement this morning -discussed with GI, will hold endoscopy given patient may end getting intubated during endoscopy and prognosis is guarded -will continue to monitor hemoglobin levels, (4) Hematemesis: Code(s): K92.0 - Hematemesis Status: Acute Assessment and Plan: As above (5) Pneumonia: Qualifiers: Laterality: left Lung location: unspecified part of lung Pneumonia type: due to unspecified organism Qualified Code(s): J18.9 - Pneumonia, unspecified organism Code(s): J18.9 - Pneumonia, unspecified organism Status: Acute Assessment and Plan: Septic shock could be related to pneumonia -chest x-ray showed left-sided opacification likely related to recurrent pleural effusion, (6) Large pleural effusion: Code(s): J90 - Pleural effusion, not elsewhere classified Status: Acute Assessment and Plan: 11/28/2021: left-sided thoracentesis with 1000 mL of clear dark yellow fluid removed on 11/28/2021. 12/04/2021: Repeat left-sided thoracentesis with removal of 1000 mL of clear light yellow fluid. -12/08: Complete opacification of the left hemithorax with leftward shift of the heart and mediastinum, could be related to obstructing endobronchial lesion or pleural effusion, pulmonary vascular congestion Hold aspirin and Plavix as per cardiology's request (7) Type 2 diabetes mellitus: Code(s): E11.9 - Type 2 diabetes mellitus without complications Status: Chronic Assessment and Plan: Sliding scale insulin Continue Lantus (8) Congestive heart failure: Code(s): I50.9 - Heart failure, unspecified Status: Chronic Assessment and Plan: Hold Lasix at this time Off IV fluids -on 12 L high-flow nasal cannula Echocardiogram 11/03/2021 EF 65-70%, grade 1 diastolic dysfunction, RV systolic function is reduced, severe aortic valve sclerosis, severe aortic valve stenosis (9) Chronic respiratory failure with hypoxia, on home oxygen therapy: Code(s): J96.11 - Chronic respiratory failure with hypoxia; Z99.81 - Dependence on supplemental oxygen Status: Acute Assessment and Plan: Patient is on oxygen at home -continue bronchodilators (10) Hypothyroidism: Code(s): E03.9 - Hypothyroidism, unspecified Status: Chronic Assessment and Plan: Continue levothyroxine (11) COVID-19: Code(s): U07.1 - COVID-19 Status: Acute Assessment and Plan: Patient was tested for COVID 19 as an outpatient on 11/24. She is on 2 L oxygen at home and continues to be on. She does have some patchy in
[2021-12-09] MEDS: FAT EMULSIONS IV 20% 250 ML 20.8 ML IVPB (12:42)
[2021-12-09] MEDS: AMINO ACIDS 5%/D15W/E-LYTES/CA 2,000 ML with MULTIVITAMINS-12 INJ VIAL 1 2.5 ML, MULTIV... 40 ML IV CONT (12:42)
[2021-12-09 13:24] LABS: Triglycerides 85 mg/dL (<150)
[2021-12-09 17:32] LABS: Glucose Point of Care 210 mg/dl (65-105)
[2021-12-09] MEDS: VASOPRESSIN INJ 100 UNITS in DEXTROSE 5% 95 ML IV CONT (21:03)
[2021-12-09] MEDS: NOREPINEPHRINE 8 MG/D5W 250 ML 8 MG/250 ML BAG 41.25 MG IV CONT (22:38)
[2021-12-10] VITALS (41 sets, daily range): BP systolic 80–135; BP diastolic 25–78; PULSE 74–108; RESP 18–26; TEMP 36.2–37.2; O2SAT 89–100
[2021-12-10] MEDS: INSULIN ASPART (*BKC) 100 UNITS/ML SUB-Q ×3 (00:17→11:35)
[2021-12-10 00:43] LABS: Glucose Point of Care 217 mg/dl (65-105)
[2021-12-10] MEDS: ALBUTEROL SULFATE NEB 2.5 MG/0.5 ML INH INHALATION ×4 (02:07→19:44)
[2021-12-10] MEDS: FLUCONAZOLE 200 MG/NACL 100 ML 200 MG/100 ML BAG 100 MG IVPB (02:22)
[2021-12-10] MEDS: AZTREONAM 1 GM in DEXTROSE 5% IN WATER 50 ML 100 ML IVPB ×3 (05:44→20:53)
[2021-12-10] MEDS: CENTRAL LINE FLUSH 10 ML IV PUSH ×4 (05:50→18:35)
[2021-12-10] MEDS: NOREPINEPHRINE 8 MG/D5W 250 ML 8 MG/250 ML BAG 22.5 MG IV CONT (06:15)
[2021-12-10 06:16] LABS: Hematocrit 27.7 % (37.0-47.0); Hemoglobin 8.4 g/dL (12.0-15.0); Mean Corpuscular HGB Conc 30.3 g/dl (32-36); Mean Corpuscular Hemoglobin 27.4 pg (26-34); Mean Corpuscular Volume 90.2 fl (80-100); Mean Platelet Volume 11.3 fl (7.4-10.4); Platelet Count Result 240 k/mm3 (150-375); Red Blood Count 3.07 M/mm3 (4.2-5.4); Red Cell Distribution Width 16.5 % (11.5-14.5); White Blood Count 26.4 K/mm3 (4.5-10.0)
[2021-12-10 06:21] LABS: Glucose Point of Care 225 mg/dl (65-105)
[2021-12-10 06:30] LABS: Alanine Aminotransferase 14 U/L (4-35); Albumin Level 3.4 g/dL (3.5-5.1); Alkaline Phosphatase 73 U/L (38-126); Anion Gap 13 mmol/L (8-16); Aspartate Amino Transferase 36 U/L (14-36); Bilirubin,Total 0.2 mg/dL (0.2-1.3); Blood Urea Nitrogen 97 mg/dL (7-17); Calcium 8.6 mg/dL (8.4-10.2); Carbon Dioxide 24 mmol/L (22-30); Chloride 100 mmol/L (98-107); Estimated CRCL calculation 23 ml/min; Estimated Glomerular Filt Rate 27; Glucose 256 mg/dL (65-110); Magnesium 1.6 mg/dL (1.6-2.3); Potassium 3.8 mmol/L (3.4-5.0); Sodium 137 mmol/L (137-145)
--- NOTE | 2021-12-10 08:56 | WPDINTPN ---
Progress Note: A&P Assessment and Plan (1) Shock: Code(s): R57.9 - Shock, unspecified Status: Acute Assessment and Plan: Patient shock, could be related to hemorrhagic versus infectious -UTI, pneumonia, -chest x-ray shows complete opacification of left side again -WBC count is is trending down -patient is on Levophed and vasopressin -patient is on vancomycin, cefepime and aztreonam as patient is allergic to multiple antibiotics -12/07 preliminary blood cultures are negative x2 -12/07: Urine cultures growing Drea -lactic acid is normal, significant elevation of CRP: 32.9 (2) Acute kidney injury: Code(s): N17.9 - Acute kidney failure, unspecified Status: Acute Assessment and Plan: Likely secondary to shock, hypotension, decreased end organ perfusion Urine output has been adequate, Creatinine is 1.80 this morning (0.80 on 12/05/2021) Patient on TPN Pt received 1 unit PRBCs on 12/06 and 1 unit on 12/07 -status post albumin -Monitor urine output electrolytes and creatinine (3) Acute on chronic anemia: Code(s): D64.9 - Anemia, unspecified Status: Acute Assessment and Plan: Patient had hematemesis in the IMU, also had some melena -hemoglobin did drop to 7.0 in 12/06/2021 -patient received 1 unit of packed RBCs and 2 9 and 1 unit on 12/07 -hemoglobin stable this morning at 8.4, continues to have melena -discussed with GI, will hold endoscopy given patient may end getting intubated during endoscopy and prognosis is guarded -will continue to monitor hemoglobin levels, (4) Hematemesis: Code(s): K92.0 - Hematemesis Status: Acute Assessment and Plan: As above (5) Pneumonia: Qualifiers: Laterality: left Lung location: unspecified part of lung Pneumonia type: due to unspecified organism Qualified Code(s): J18.9 - Pneumonia, unspecified organism Code(s): J18.9 - Pneumonia, unspecified organism Status: Acute Assessment and Plan: Septic shock could be related to pneumonia -chest x-ray showed left-sided opacification likely related to recurrent pleural effusion, (6) Large pleural effusion: Code(s): J90 - Pleural effusion, not elsewhere classified Status: Acute Assessment and Plan: 11/28/2021: left-sided thoracentesis with 1000 mL of clear dark yellow fluid removed on 11/28/2021. 12/04/2021: Repeat left-sided thoracentesis with removal of 1000 mL of clear light yellow fluid. -12/08: Complete opacification of the left hemithorax with leftward shift of the heart and mediastinum, could be related to obstructing endobronchial lesion or pleural effusion, pulmonary vascular congestion Hold aspirin and Plavix as per cardiology's request -patient to have left thoracentesis today (7) Type 2 diabetes mellitus: Code(s): E11.9 - Type 2 diabetes mellitus without complications Status: Chronic Assessment and Plan: Sliding scale insulin Increased Lantus (8) Congestive heart failure: Code(s): I50.9 - Heart failure, unspecified Status: Chronic Assessment and Plan: Hold Lasix at this time Off IV fluids -on 6 L high-flow nasal cannula Echocardiogram 11/03/2021 EF 65-70%, grade 1 diastolic dysfunction, RV systolic function is reduced, severe aortic valve sclerosis, severe aortic valve stenosis (9) Chronic respiratory failure with hypoxia, on home oxygen therapy: Code(s): J96.11 - Chronic respiratory failure with hypoxia; Z99.81 - Dependence on supplemental oxygen Status: Acute Assessment and Plan: Patient is on oxygen at home -continue bronchodilators (10) Hypothyroidism: Code(s): E03.9 - Hypothyroidism, unspecified Status: Chronic Assessment and Plan: Continue levothyroxine (11) COVID-19: Code(s): U07.1 - COVID-19 Status: Acute Assessment and Plan: Patient was tested for COVID 19 as an outpatient on 11/24. She is on
[2021-12-10] MEDS: PANTOPRAZOLE SODIUM IV 40 MG VIAL IV PUSH ×2 (09:20→20:44)
[2021-12-10] MEDS: INSULIN GLARGINE (*BKC) 100 UNITS/ML 35 UNITS SUB-Q (09:38)
--- NOTE | 2021-12-10 10:30 | WPDGIPROGNO ---
Progress Note: A&P Assessment and Plan (1) Acute on chronic anemia: Code(s): D64.9 - Anemia, unspecified Status: Acute Assessment and Plan: had another episode of melena again, she will be high risk to undergo anesthesia for egd or colonoscopy given frail status, now she is on 2 pressors iv protonix (2) Hematemesis: Code(s): K92.0 - Hematemesis Status: Acute Assessment and Plan: no more episode of hematemesis but still melena hb 8.4 continue with iv protonix, she is now on 2 pressors that could also be from sepsis/COVID she is on TPN for now prognosis is guarded (3) Ulcerative colitis: Code(s): K51.90 - Ulcerative colitis, unspecified, without complications Status: Acute Assessment and Plan: abdominal exam tender, she is sick (4) Septic shock: Code(s): A41.9 - Sepsis, unspecified organism; R65.21 - Severe sepsis with septic shock Status: Acute Assessment and Plan: still sick and on pressors (5) COVID-19: Code(s): U07.1 - COVID-19 Status: Acute Assessment and Plan: s/p steroids and remdesivir- discontinued because renal failure (6) Leukocytosis: Code(s): D72.829 - Elevated white blood cell count, unspecified Status: Acute Assessment and Plan: still high but trending down now, 26k on medical treatment (7) Large pleural effusion: Code(s): J90 - Pleural effusion, not elsewhere classified Status: Acute Assessment and Plan: again with more pleural effusion and will undergo another thoracentesis today (8) Poor appetite: Code(s): R63.0 - Anorexia Status: Acute Assessment and Plan: she has been getting TPN Subjective Date/time seen: 12/10/21 10:30 Interval history: had another episode of melena and now she is on 2 pressors Review of Systems Review of Systems: All systems reviewed & are unremarkable except as noted in HPI and below Exam Const: Other: frail, lying in bed and confused. HENMT: General nose exam: Normal nares present Eyes: Sclera: sclerae normal Neck: Neck: supple Resp: Auscultation: diminished lung sounds Other: coarse BS Cardio: Rate: regular rate GI: GI Palp: Yes Soft to palpation, Yes Tenderness to palpation present (GI) (diffusely, no rebound) and Yes Guarding due to palpation present (GI) Auscultation: normal bowel sounds Other: still quite tender Skin: General skin exam: no rashes or lesions noted Neuro: Speech: normal speech Other: awake and alert but confused, only answers some questions with yes or no Extrem: General: normal to inspection Psych: Other: awake and alert but confused Objective Data Vital Signs Vital Signs: Vital Signs - 24 hr 12/09/21 10:47 12/09/21 11:09 12/09/21 11:12 Temperature Pulse Rate 99 96 91 Respiratory Rate 26 H Blood Pressure 95/45 L 98/65 L Pulse Oximetry 97 12/09/21 12:00 12/09/21 14:00 12/09/21 14:48 Temperature 98.5 F 98.7 F Pulse Rate 105 H 83 73 Respiratory Rate 27 H 26 H 27 H Blood Pressure 104/55 L 102/58 L Pulse Oximetry 96 99 12/09/21 14:56 12/09/21 15:04 12/09/21 16:00 Temperature 98.6 F Pulse Rate 68 92 91 Respiratory Rate 26 H 28 H 26 H Blood Pressure 116/57 L Pulse Oximetry 99 99 12/09/21 16:33 12/09/21 18:00 12/09/21 20:00 Temperature 98.7 F Pulse Rate 89 90 91 Respiratory Rate 26 H 25 H Blood Pressure 117/49 L 119/58 L 126/59 L Pulse Oximetry 98 100 12/09/21 20:11 12/09/21 20:30 12/09/21 20:41 Temperature Pulse Rate 90 81 97 Respiratory Rate 24 H 24 H Blood Pressure 126/59 L Pulse Oximetry 12/09/21 21:01 12/09/21 21:03 12/09/21 21:51 Temperature Pulse Rate 96 103 H Respiratory Rate Blood Pressure 103/50 L 109/48 L Pulse Oximetry 98 12/09/21 22:00 12/09/21 22:38 12/09/21 22:39 Temperature 98.6 F Pulse Rate 96 77 77 Respiratory Rate 24 H Blood Pressure 103/51 L 92/49 L 92/49 L P
[2021-12-10 11:44] LABS: Glucose Point of Care 226 mg/dl (65-105)
[2021-12-10] MEDS: NOREPINEPHRINE 8 MG/D5W 250 ML 8 MG/250 ML BAG 37.5 MG IV CONT ×2 (15:37→20:46)
[2021-12-10 18:34] LABS: Glucose Point of Care 166 mg/dl (65-105)
[2021-12-11] VITALS (25 sets, daily range): BP systolic 85–132; BP diastolic 43–79; PULSE 84–111; RESP 18–97; TEMP 36.1–37.6; O2SAT 80–99
[2021-12-11 00:15] LABS: Glucose Point of Care 221 mg/dl (65-105)
[2021-12-11] MEDS: INSULIN ASPART (*BKC) 100 UNITS/ML SUB-Q (00:43)
[2021-12-11] MEDS: ALBUTEROL SULFATE NEB 2.5 MG/0.5 ML INH INHALATION ×4 (02:25→21:14)
[2021-12-11] MEDS: NOREPINEPHRINE 8 MG/D5W 250 ML 8 MG/250 ML BAG 48.75 MG IV CONT ×2 (04:04→09:24)
[2021-12-11 04:21] LABS: Basophils Absolute Auto 0.1 K/mm3 (0.0-0.1); Basophils Percent Auto 0.5 % (0.2-1.2); Eosinophils Percent Auto 0.1 % (0-4.4); Hemoglobin 8.7 g/dL (12.0-15.0); Immature Granulocyte Percent A 1.5 % (0-0.5); Lymphocytes Absolute Auto 0.37 K/mm3 (0.9-3.2); Lymphocytes Percent Auto 1.4 % (18.3-44.2); Mean Corpuscular Hemoglobin 27.4 pg (26-34); Mean Corpuscular Volume 91.2 fl (80-100); Mean Platelet Volume 11.3 fl (7.4-10.4); Monocytes Absolute Auto 1.7 K/mm3 (0.1-0.6); Monocytes Percent Auto 6.3 % (2.6-8.5); Neutrophils Absolute Auto 24.3 K/mm3 (1.3-6.7); Neutrophils Percent Auto 90.2 % (45.5-73.1); Nucleated Red Blood Cells Absolute Auto 0.1 K/mm3 (0.0-0.012); Nucleated Red Blood Cells Perc 0.2 % (0.0-0.2); Platelet Count Result 263 k/mm3 (150-375); Red Blood Count 3.18 M/mm3 (4.2-5.4); Red Cell Distribution Width 16.3 % (11.5-14.5)
[2021-12-11 04:49] LABS: Prothrombin Time 12.4 Seconds (11.1-14.7)
[2021-12-11 04:50] LABS: Partial Thromboplastin Time 38.2 SECONDS (22.3-36.8)
[2021-12-11 05:08] LABS: Transferrin 104 mg/dL (206-381)
[2021-12-11 05:18] LABS: Alanine Aminotransferase 16 U/L (4-35); Albumin Level 3.3 g/dL (3.5-5.1); Alkaline Phosphatase 215 U/L (38-126); Anion Gap 14 mmol/L (8-16); Aspartate Amino Transferase 93 U/L (14-36); Bilirubin,Total 0.4 mg/dL (0.2-1.3); Blood Urea Nitrogen 112 mg/dL (7-17); Calcium 8.7 mg/dL (8.4-10.2); Carbon Dioxide 24 mmol/L (22-30); Chloride 96 mmol/L (98-107); Estimated CRCL calculation 22 ml/min; Estimated Glomerular Filt Rate 26; Glucose 146 mg/dL (65-110); Magnesium 1.7 mg/dL (1.6-2.3); Phosphorus 5.9 mg/dL (2.5-4.5); Potassium 4.1 mmol/L (3.4-5.0); Sodium 134 mmol/L (137-145)
[2021-12-11] MEDS: AZTREONAM 1 GM in DEXTROSE 5% IN WATER 50 ML 100 ML IVPB ×3 (05:46→20:20)
[2021-12-11] MEDS: CENTRAL LINE FLUSH 10 ML IV PUSH ×4 (05:47→20:18)
--- NOTE | 2021-12-11 08:48 | WPDINTPN ---
Progress Note: A&P Assessment and Plan (1) Shock: Code(s): R57.9 - Shock, unspecified Status: Acute Assessment and Plan: Patient shock, could be related to hemorrhagic versus infectious -UTI, pneumonia, -chest x-ray shows complete opacification of left side again -WBC count is is trending down -patient is on Levophed and vasopressin -patient is on vancomycin, cefepime and aztreonam as patient is allergic to multiple antibiotics -12/07 preliminary blood cultures are negative x2 -12/07: Urine cultures growing Drea -lactic acid is normal, significant elevation of CRP: 32.9 (2) Acute kidney injury: Code(s): N17.9 - Acute kidney failure, unspecified Status: Acute Assessment and Plan: Likely secondary to shock, hypotension, decreased end organ perfusion Urine output has been adequate, Creatinine is 1.80 this morning (0.80 on 12/05/2021) Patient on TPN Pt received 1 unit PRBCs on 12/06 and 1 unit on 12/07 -status post albumin -Monitor urine output electrolytes and creatinine (3) Acute on chronic anemia: Code(s): D64.9 - Anemia, unspecified Status: Acute Assessment and Plan: Patient had hematemesis in the IMU, also had some melena -hemoglobin did drop to 7.0 in 12/06/2021 -patient received 1 unit of packed RBCs and 2 9 and 1 unit on 12/07 -hemoglobin stable this morning at 8.4, continues to have melena -discussed with GI, will hold endoscopy given patient may end getting intubated during endoscopy and prognosis is guarded -will continue to monitor hemoglobin levels, (4) Hematemesis: Code(s): K92.0 - Hematemesis Status: Acute Assessment and Plan: As above (5) Pneumonia: Qualifiers: Laterality: left Lung location: unspecified part of lung Pneumonia type: due to unspecified organism Qualified Code(s): J18.9 - Pneumonia, unspecified organism Code(s): J18.9 - Pneumonia, unspecified organism Status: Acute Assessment and Plan: Septic shock could be related to pneumonia -chest x-ray showed left-sided opacification likely related to recurrent pleural effusion, (6) Large pleural effusion: Code(s): J90 - Pleural effusion, not elsewhere classified Status: Acute Assessment and Plan: 11/28/2021: left-sided thoracentesis with 1000 mL of clear dark yellow fluid removed on 11/28/2021. 12/04/2021: Repeat left-sided thoracentesis with removal of 1000 mL of clear light yellow fluid. 11/30: Left thoracentesis his removal of 950 mL of clear yellow fluid Hold aspirin and Plavix as per cardiology's request Chest x-ray on 12/11: Persistent complete opacification of left hemithorax, likely a combination of pleural effusion and atelectasis. (7) Type 2 diabetes mellitus: Code(s): E11.9 - Type 2 diabetes mellitus without complications Status: Chronic Assessment and Plan: Sliding scale insulin Continue Lantus (8) Congestive heart failure: Code(s): I50.9 - Heart failure, unspecified Status: Chronic Assessment and Plan: Hold Lasix at this time Off IV fluids -on 6 L high-flow nasal cannula Echocardiogram 11/03/2021 EF 65-70%, grade 1 diastolic dysfunction, RV systolic function is reduced, severe aortic valve sclerosis, severe aortic valve stenosis (9) Chronic respiratory failure with hypoxia, on home oxygen therapy: Code(s): J96.11 - Chronic respiratory failure with hypoxia; Z99.81 - Dependence on supplemental oxygen Status: Acute Assessment and Plan: Patient is on oxygen at home -continue bronchodilators (10) Hypothyroidism: Code(s): E03.9 - Hypothyroidism, unspecified Status: Chronic Assessment and Plan: Continue levothyroxine (11) COVID-19: Code(s): U07.1 - COVID-19 Status: Acute Assessment and Plan: Patient was tested for COVID 19 as an outpatient on 11/24. She is on 2 L oxygen at home and continues to be on. She
[2021-12-11] MEDS: PANTOPRAZOLE SODIUM IV 40 MG VIAL IV PUSH ×2 (09:25→20:18)
[2021-12-11 09:56] LABS: Glucose Point of Care 127 mg/dl (65-105)
[2021-12-11] MEDS: VASOPRESSIN INJ 100 UNITS in DEXTROSE 5% 95 ML IV CONT (10:46)
--- NOTE | 2021-12-11 12:11 | PCFNICU ---
ICU Rounding Note: Pt current nutrition is NPO. Last recorded weight is 76.2 kg, up from 72 kg on admit. Bowel Motility:+BM reported 12/10 Labs Reviewed:GFR 26, BUN 112,Cr 1.9, Na 134, Hct 29.0,Hgb 8.7,Alb 3.3, Glu 146 Meds Noted:Levophed,Vasopressin, Maxipime, Protonix Skin: WNL Additional Notes: Patient's TPN discontinue on 12/09. Thoracentesis 12/10. O2 delivery: 6 liters High flow. MD has been in discussions with family members regarding plan of care. RD will continue to monitor. Following daily in ICU rounds and reassessing every 3 days.
[2021-12-11 13:29] LABS: Glucose Point of Care 132 mg/dl (65-105)
[2021-12-11 13:58] LABS: Triglycerides 122 mg/dL (<150)
--- NOTE | 2021-12-11 16:07 | WPDGIPROGNO ---
Progress Note: A&P Assessment and Plan (1) Acute on chronic anemia: Code(s): D64.9 - Anemia, unspecified Status: Acute Assessment and Plan: she is more lethargic and melena again, she will be high risk to undergo anesthesia for egd or colonoscopy given frail status, now she is on 2 pressors iv protonix primary to talk with family about poor prognosis (2) Hematemesis: Code(s): K92.0 - Hematemesis Status: Acute Assessment and Plan: no more episode of hematemesis but still melena continue with iv protonix, she is now on 2 pressors that could also be from sepsis/COVID she is on TPN (3) Ulcerative colitis: Code(s): K51.90 - Ulcerative colitis, unspecified, without complications Status: Acute Assessment and Plan: abdominal exam tender, she is sick (4) Septic shock: Code(s): A41.9 - Sepsis, unspecified organism; R65.21 - Severe sepsis with septic shock Status: Acute Assessment and Plan: more lethargic and on pressors (5) COVID-19: Code(s): U07.1 - COVID-19 Status: Acute Assessment and Plan: s/p steroids and remdesivir- discontinued because renal failure (6) Leukocytosis: Code(s): D72.829 - Elevated white blood cell count, unspecified Status: Acute Assessment and Plan: on medical treatment (7) Large pleural effusion: Code(s): J90 - Pleural effusion, not elsewhere classified Status: Acute Assessment and Plan: s/p thoracentesis yesterday Subjective Date/time seen: 12/11/21 16:07 Interval history: had thoracentesis yesterday and about 3 episodes of melena, she is quite lethargic and still on pressors. Review of Systems Review of Systems: All systems reviewed & are unremarkable except as noted in HPI and below Exam Const: Other: frail, lying in bed and confused, more lethargic today HENMT: General nose exam: Normal nares present Eyes: Sclera: sclerae normal Neck: Neck: supple Resp: Auscultation: diminished lung sounds Other: coarse BS Cardio: Rate: regular rate GI: GI Palp: Yes Soft to palpation, Yes Tenderness to palpation present (GI) (diffusely, no rebound) and Yes Guarding due to palpation present (GI) Auscultation: normal bowel sounds Other: still quite tender Skin: General skin exam: no rashes or lesions noted Neuro: Speech: normal speech Other: awake but more lethargic Extrem: General: normal to inspection Psych: Other: lethargic Objective Data Vital Signs Vital Signs: Vital Signs - 24 hr 12/10/21 18:00 12/10/21 19:46 12/10/21 19:56 Temperature 97.7 F Pulse Rate 93 85 85 Respiratory Rate 23 H 22 H 22 H Blood Pressure 108/61 Pulse Oximetry 96 97 12/10/21 20:00 12/10/21 20:46 12/10/21 22:00 Temperature 97.1 F L Pulse Rate 94 93 91 Respiratory Rate 22 H 22 H Blood Pressure 118/59 L 118/59 L 104/51 L Pulse Oximetry 99 99 12/11/21 00:00 12/11/21 02:00 12/11/21 02:27 Temperature 97 F L 96.9 F L Pulse Rate 94 89 86 Respiratory Rate 18 20 22 H Blood Pressure 94/58 L 96/49 L Pulse Oximetry 98 97 98 12/11/21 03:29 12/11/21 03:30 12/11/21 03:42 Temperature Pulse Rate 95 Respiratory Rate Blood Pressure 85/50 L Pulse Oximetry 97 12/11/21 04:00 12/11/21 04:04 12/11/21 05:48 Temperature 97.1 F L Pulse Rate 96 88 86 Respiratory Rate 20 Blood Pressure 90/51 L 90/51 L Pulse Oximetry 97 12/11/21 06:00 12/11/21 07:50 12/11/21 08:00 Temperature 97.4 F L Pulse Rate 90 88 87 Respiratory Rate 22 H 18 20 Blood Pressure 102/46 L Pulse Oximetry 95 12/11/21 09:00 12/11/21 10:00 12/11/21 12:00 Temperature 98.1 F 98.7 F 98.4 F Pulse Rate 90 94 95 Respiratory Rate 21 H 22 H 19 Blood Pressure 115/57 L 104/52 L 96/49 L Pulse Oximetry 93 96 96 12/11/21 13:45 12/11/21 13:56 12/11/21 14:00 Temperature 98.7 F Pulse Rate 93 96 94 Respiratory Rate 22 H 20 23 H Blood Pressure 95/48 L Pulse Oxim
[2021-12-11] MEDS: NOREPINEPHRINE 8 MG/D5W 250 ML 8 MG/250 ML BAG 52.5 MG IV CONT (19:20)
--- NOTE | 2021-12-11 20:22 | PC.NURSE ---
1999 O2 sats 65-80 on 15l high flow. Suctioned patient and placed on NRB. O2 sats improved to 96-98%
[2021-12-11 22:54] LABS: Glucose Point of Care 119 mg/dl (65-105)
[2021-12-12] VITALS (13 sets, daily range): BP systolic 92–141; BP diastolic 47–75; PULSE 82–102; RESP 22–96; TEMP 35.9–36.1; O2SAT 93–98
[2021-12-12] MEDS: NOREPINEPHRINE 8 MG/D5W 250 ML 8 MG/250 ML BAG 41.25 MG IV CONT (01:36)
[2021-12-12] MEDS: ALBUTEROL SULFATE NEB 2.5 MG/0.5 ML INH INHALATION (03:09)
[2021-12-12 04:40] LABS: Hematocrit 30.3 % (37.0-47.0); Hemoglobin 8.9 g/dL (12.0-15.0); Mean Corpuscular HGB Conc 29.4 g/dl (32-36); Mean Corpuscular Hemoglobin 27.2 pg (26-34); Mean Corpuscular Volume 92.7 fl (80-100); Mean Platelet Volume 11.4 fl (7.4-10.4); Platelet Count Result 290 k/mm3 (150-375); Red Blood Count 3.27 M/mm3 (4.2-5.4); Red Cell Distribution Width 16.1 % (11.5-14.5); White Blood Count 25.6 K/mm3 (4.5-10.0)
[2021-12-12 05:10] LABS: Alanine Aminotransferase 14 U/L (4-35); Albumin Level 3.3 g/dL (3.5-5.1); Alkaline Phosphatase 122 U/L (38-126); Anion Gap 13 mmol/L (8-16); Aspartate Amino Transferase 44 U/L (14-36); Bilirubin,Total 0.3 mg/dL (0.2-1.3); Blood Urea Nitrogen 113 mg/dL (7-17); Calcium 8.3 mg/dL (8.4-10.2); Carbon Dioxide 22 mmol/L (22-30); Chloride 98 mmol/L (98-107); Estimated CRCL calculation 15 ml/min; Estimated Glomerular Filt Rate 17; Glucose 129 mg/dL (65-110); Magnesium 1.7 mg/dL (1.6-2.3); Phosphorus 7.4 mg/dL (2.5-4.5); Potassium 4.6 mmol/L (3.4-5.0); Sodium 133 mmol/L (137-145)
[2021-12-12] MEDS: CENTRAL LINE FLUSH 10 ML IV PUSH (05:31)
[2021-12-12] MEDS: AZTREONAM 1 GM in DEXTROSE 5% IN WATER 50 ML 100 ML IVPB (05:31)
[2021-12-12] MEDS: NOREPINEPHRINE 8 MG/D5W 250 ML 8 MG/250 ML BAG 37.5 MG IV CONT (08:25)
[2021-12-12] MEDS: PANTOPRAZOLE SODIUM IV 40 MG VIAL IV PUSH (08:29)
[2021-12-12] MEDS: INSULIN GLARGINE (*BKC) 100 UNITS/ML 35 UNITS SUB-Q (08:40)
[2021-12-12 10:23] LABS: Vancomycin Trough 19.9 ug/mL (10.0-20.0)
--- NOTE | 2021-12-12 11:18 | PCNFU ---
Nutrition Follow-Up Complete: Inadequate oral intake related to sepsis, pneumonia as evidenced by reported intake of 0% Goal: Pt to meet 75% of estimated nutritional needs Limited progress on goal. Will continue current goal. Pt current nutrition is NPO x 3 days. Nutrition recommendation: Nepro at 20 ml/hr advance by 10 ml q 4 hours to goal rate of 35 ml/hr. Last recorded weight is 74.2 kg-stable Bowel Motility:+BM reported 12/10 Labs Reviewed: Glu 129, BUN 113, Cr 2.7, Na 133, Hct 30.3,Hgb 8.9,Alb 3.3 Meds Noted:Levophed,Vasopressin, Maxipime, Protonix, Lantus Skin: WNL Additional Notes: Patient remains NPO x 3 days. 15 Liters High flow and 15 Liters non rebreather. Plans for family meeting today. Per MD, if family does not proceed with comfort measures will starting NGT feedings. Will monitor labs, medication, wt, and reported intake every Saturday and Saturday.
--- NOTE | 2021-12-12 12:06 | WPDINTPN ---
Progress Note: A&P Assessment and Plan (1) Shock: Code(s): R57.9 - Shock, unspecified Status: Acute (2) Acute kidney injury: Code(s): N17.9 - Acute kidney failure, unspecified Status: Acute (3) Acute on chronic anemia: Code(s): D64.9 - Anemia, unspecified Status: Acute (4) Hematemesis: Code(s): K92.0 - Hematemesis Status: Acute (5) Pneumonia: Qualifiers: Laterality: left Lung location: unspecified part of lung Pneumonia type: due to unspecified organism Qualified Code(s): J18.9 - Pneumonia, unspecified organism Code(s): J18.9 - Pneumonia, unspecified organism Status: Acute (6) Large pleural effusion: Code(s): J90 - Pleural effusion, not elsewhere classified Status: Acute (7) Type 2 diabetes mellitus: Code(s): E11.9 - Type 2 diabetes mellitus without complications Status: Chronic (8) Congestive heart failure: Code(s): I50.9 - Heart failure, unspecified Status: Chronic (9) Chronic respiratory failure with hypoxia, on home oxygen therapy: Code(s): J96.11 - Chronic respiratory failure with hypoxia; Z99.81 - Dependence on supplemental oxygen Status: Acute (10) Hypothyroidism: Code(s): E03.9 - Hypothyroidism, unspecified Status: Chronic (11) COVID-19: Code(s): U07.1 - COVID-19 Status: Acute (12) Poor appetite: Code(s): R63.0 - Anorexia Status: Acute Additional Plan 12/10: Patient's daughter and POA arrive from [place], Dr. House discussed with her at length in the conference room regarding process of comfort measure, she stated that she has Siblings in [facility] where would like to see her, before the withdraw support. 12/09:Dr. House diiscussed with Jacquelyn, daughter and POA and updated her with patient's condition and plan of care. Dr. House did tell them that we have been requiring more blood pressure support medications, patient also has had bloody bowel movements, left-sided pleural effusion as before. Patient is a poor candidate for colonoscopy or EGD as she may end up requiring intubation and mechanical ventilation, given her chest x-ray findings and history of chronic respiratory failure with home oxygen she may end up requiring a tracheostomy and a feeding tube due to failure to thrive as she is on TPN (which is nutrition through the IV line.) Dr. House discussed with her regarding comfort care as given patient's overall condition and multi organ system failure her prognosis is very guarded and critical. Patient is going to talk to her family and get back to me 12/12 I met with patient's son and 2 daughters in conference room in presence of patient's nurse Екатерина and executive administrative assistant Jim. I I again reviewed patient's hospital course, current medical status including multiorgan failure, septic shock, GI bleed, respiratory failure, aortic stenosis, acute kidney injury, encephalopathy. I again discussed patient expected prognosis and different potential outcomes. They told me that patient has lived a good life and would not want to continue like this. All 3 of them were in agreement the patient would not want continued aggressive therapy and management considering her current condition and prognosis. The family has decided, in accordance with pt's wishes, to discontinue all medical therapy and institute comfort measures only. I I have explained them that I will use opioids, anxiolytics and other agents on as needed basis to promote comfort and discontinue all medical therapy, lab testing and invasive monitoring. They verbalized understanding and agreed to proceed Critical care time spent: 31 minutes This dictation may have been done utilizing a voice recognition system. Attempts have been made to correct errors. However, there may be uncorrected grammatical, spelling, and recognition errors present. Due to a high probability of clinically significant,
[2021-12-12] MEDS: MORPHINE SULFATE INJ (*CRX) 10 MG/ML AMP 5 MG IV PUSH (12:25)
[2021-12-12] MEDS: LORazepam INJ (*CRX) 2 MG/ML VIAL IV PUSH (12:25)
--- NOTE | 2021-12-12 13:09 | WPDGIPROGNO ---
Progress Note: A&P Assessment and Plan (1) Acute on chronic anemia: Code(s): D64.9 - Anemia, unspecified Status: Acute Assessment and Plan: noted that family made her comfort measure only will sign off (2) Septic shock: Code(s): A41.9 - Sepsis, unspecified organism; R65.21 - Severe sepsis with septic shock Status: Acute (3) COVID-19: Code(s): U07.1 - COVID-19 Status: Acute (4) Hematemesis: Code(s): K92.0 - Hematemesis Status: Acute (5) Pleural effusion: Code(s): J90 - Pleural effusion, not elsewhere classified Status: Acute (6) Ulcerative colitis: Code(s): K51.90 - Ulcerative colitis, unspecified, without complications Status: Acute (7) Leukocytosis: Code(s): D72.829 - Elevated white blood cell count, unspecified Status: Acute Subjective Date/time seen: 12/12/21 13:09 Interval history: family decided to make her comfort measures, still lethargic Review of Systems Review of Systems: All systems reviewed & are unremarkable except as noted in HPI and below Exam Const: Other: frail, quite lethargic HENMT: General nose exam: Normal nares present Eyes: Sclera: sclerae normal Neck: Neck: supple Resp: Auscultation: diminished lung sounds Other: coarse BS Cardio: Rate: regular rate GI: GI Palp: Yes Soft to palpation, Yes Tenderness to palpation present (GI) (diffusely, no rebound) and Yes Guarding due to palpation present (GI) Auscultation: normal bowel sounds Other: still quite tender Skin: General skin exam: no rashes or lesions noted Neuro: Other: lethargic Extrem: General: pedal edema Psych: Other: lethargic Objective Data Vital Signs Vital Signs: Vital Signs - 24 hr 12/11/21 13:45 12/11/21 13:56 12/11/21 14:00 Temperature 98.7 F Pulse Rate 93 96 94 Respiratory Rate 22 H 20 23 H Blood Pressure 95/48 L Pulse Oximetry 97 12/11/21 14:32 12/11/21 16:00 12/11/21 18:00 Temperature 99.1 F 99.7 F H Pulse Rate 103 H 85 87 Respiratory Rate 27 H 28 H Blood Pressure 94/43 L 117/60 115/62 Pulse Oximetry 95 95 12/11/21 20:00 12/11/21 21:14 12/11/21 21:54 Temperature 99.1 F Pulse Rate 111 H 94 97 Respiratory Rate 32 H 97 H 97 H Blood Pressure 132/79 Pulse Oximetry 97 97 97 12/11/21 22:00 12/12/21 00:00 12/12/21 02:00 Temperature 98 F 96.8 F L 96.9 F L Pulse Rate 98 102 H 88 Respiratory Rate 32 H 25 H 24 H Blood Pressure 90/53 L 116/67 114/65 Pulse Oximetry 98 98 98 12/12/21 03:10 12/12/21 03:18 12/12/21 04:00 Temperature 96.9 F L Pulse Rate 92 97 90 Respiratory Rate 96 H 23 H 22 H Blood Pressure 107/54 L Pulse Oximetry 96 98 96 12/12/21 05:36 12/12/21 06:00 12/12/21 08:00 Temperature 96.9 F L 96.7 F L Pulse Rate 87 85 91 Respiratory Rate 22 H 26 H Blood Pressure 141/64 H 124/61 Pulse Oximetry 96 93 12/12/21 08:25 12/12/21 08:50 12/12/21 09:12 Temperature Pulse Rate 82 88 90 Respiratory Rate 23 H Blood Pressure 140/75 130/61 Pulse Oximetry 97 12/12/21 10:00 12/12/21 12:00 Temperature 96.9 F L 97.0 F L Pulse Rate 88 84 Respiratory Rate 22 H 24 H Blood Pressure 92/52 L 99/47 L Pulse Oximetry 98 93 Intake/Output Intake/Output: Intake & Output 12/09/21 12/10/21 12/11/21 12/12/21 23:59 23:59 23:59 23:59 Intake Total 3573 1465 1035 500 Output Total 1100 2550 700 225 Balance 2473 -1085 335 275 Meds/Results Medications: Active Medications Generic Name Dose Route Start Last Admin Trade Name Freq PRN Reason Stop Dose Admin Albuterol 2.5 mg 12/12/21 09:09 Albuterol Sulfate Neb 2.5 Mg/0.5 Ml Inh INHALATION Q6HRT PRN wheezing Ascorbic Acid 250 mg 11/28/21 09:00 12/12/21 09:01 Ascorbic Acid 250 Mg Tablet PO Not Given BID [facility] Aspirin 81 mg 11/29/21 09:00 11/29/21 12:10 Aspirin 81 Mg Enteric Tablet PO 81 mg QAM [facility] Administration Atorvastatin Calcium 40 mg 11/27/21 22:50 0
--- NOTE | 2021-12-12 13:22 | PC.NURSE ---
Had a meeting in the conference room with the family, , Tom the Chaplan, and myself. Family decided to do comfort care. Patient at 1245 on 12/12/2021 with family at bedside. Physician notified.
--- NOTE | 2021-12-12 14:00 | PM.DDS ---
Discharge Summary Date and Time Date of : 12/12/21 Time of : 12:45 Provider Pronounced By: ALESHIA HUNTER RN Probable Cause of Probable Cause of : Covid pneumonia Summary Hospital Course: 12/01/2021 interval history: patient is 80-year-old female was COVID positive on 11/24 being treated with dexamethasone 4/10, and remdesivir 2/5 patient also has pleural effusion status post thoracentesis 1 L bloody, secondary to pneumonia patient being treated cefepime and vancomycin, patient remains clinically stable requiring 2 L of oxygen, will continue present managed and further recommendation to follow. 12/02/2021 interval history: patient is 80-year-old female was COVID positive on 11/24 being treated with dexamethasone 5/10, and remdesivir 3/5 patient also has alarge pleural effusion status post thoracentesis 1 L bloody, secondary to pneumonia patient being treated cefepime and vancomycin, today patient is more short of breath ABG showed 7.206/64/ 70, will place the patient on BiPAP, will start the patient on IV Lasix, will hold plavix, and possibly thoracentesis on Saturday, spoke with the patient's daughter and gave updates severe like to continue everything, will continue present managed and further recommendation to follow. 12/03/2021 interval history: patient is 80-year-old female was COVID positive on 11/24 being treated with dexamethasone 6/10, and remdesivir 4/5 patient also has alarge pleural effusion status post thoracentesis 1 L bloody, secondary to pneumonia patient being treated cefepime and vancomycin, repeat chest x-ray shows persistent left-sided pleural effusion patient will have a thoracentesis tomorrow, Again today patient is more short of breath however ABG showed improvement 7.353/ 49.5/ 62.8, will place the patient on BiPAP, will start the patient on IV Lasix, will hold plavix, and possibly thoracentesis on Saturday, on 12/02 spoke with the patient's daughter and gave updates would like to continue everything, will continue present managed and further recommendation to follow. 12/04/2021 interval history: patient is 80-year-old female was COVID positive on 11/24 being treated with dexamethasone 7/10, and remdesivir 5/5 patient completed 5 day course of remdesivir today will continue for another 5 days as patient is requiring high-flow oxygen and BiPAP, patient also has a large left sided pleural effusion status post thoracentesis 1 L bloody, secondary to pneumonia patient being treated cefepime and vancomycin, repeat chest x-ray shows persistent left-sided pleural effusion patient had thoracentesis today and 1000 cc of clear yellow fluid was removed suspect transudative Again today patient is more short of breath however ABG on 12/03 showed improvement 7.353/ 49.5/ 62.8, will place the patient on BiPAP as needed, will start the patient on IV Lasix, on 12/02 spoke with the patient's daughter and gave updates would like to continue everything, will continue present managed and further recommendation to follow. 12/05/2021 interval history: patient is 80-year-old female was COVID positive on 11/24 being treated with dexamethasone 06/06, and remdesivir 5/5 patient completed 5 day course of remdesivir 12/04, will continue for another 5 days as patient is requiring high-flow oxygen and BiPAP, patient also has a large left sided pleural effusion status post thoracentesis 1 L bloody, secondary to pneumonia patient being treated cefepime and vancomycin, repeat chest x-ray shows persistent left-sided pleural effusion patient had thoracentesis today and 1000 cc of clear yellow fluid was removed suspect transudative Again today patient is more short of breath however ABG on 12/03 showed improvement 7.353/ 49.5/ 62.8, will place the patient on BiPAP as needed, started the patient on IV Lasix, today patient potassium and magnesium still low will supplement and monitor, on 12/02 spoke with lyle
== END 2021-12-12 12:45 | disposition expired | DRG 871 ==
LOC: ANHED 16:52 → ANHICU 11-28 12:08 → ANHIMU 12-05 13:26 → ANHICU 12-08 10:07 → ANHIMU 12-13 09:33
PROVIDERS: Internal Medicine; Nurse Practitioner; Admitting Provider Internal Medicine; Emergency Provider Family Medicine; PCP Internal Medicine; Visit Provider Family Medicine
DX: A41.89 Other specified sepsis (principal); U07.1 COVID-19; R65.21 Severe sepsis with septic shock; J12.82 Pneumonia due to coronavirus disease 2019; J96.11 Chronic respiratory failure with hypoxia; J90 Pleural effusion, not elsewhere classified; N17.9 Acute kidney failure, unspecified; N39.0 Urinary tract infection, site not specified; K92.0 Hematemesis; K92.1 Melena; G93.40 Encephalopathy, unspecified; Z51.5 Encounter for palliative care; Z66 Do not resuscitate; E11.9 Type 2 diabetes mellitus without complications; I11.0 Hypertensive heart disease with heart failure; I50.9 Heart failure, unspecified; R53.1 Weakness; I95.9 Hypotension, unspecified; Z99.81 Dependence on supplemental oxygen; E11.40 Type 2 diabetes mellitus with diabetic neuropathy, unspecified; E78.5 Hyperlipidemia, unspecified; E03.9 Hypothyroidism, unspecified; Z87.891 Personal history of nicotine dependence; Z88.2 Allergy status to sulfonamides; R63.0 Anorexia; D64.9 Anemia, unspecified; E87.6 Hypokalemia; E83.42 Hypomagnesemia; I35.0 Nonrheumatic aortic (valve) stenosis
CPT/HCPCS: 32555; 36415; 36430; 36600; 51701; 71045; 71250; 74019; 76775; 80048; 80053; 80202; 81001; 82728; 82805; 82945; 82948; 83036; 83605; 83615; 83735; 83880; 83986; 84100; 84157; 84439; 84443; 84466; 84478; 84484; 85025; 85027; 85610; 85730; 86140; 86850; 86900; 86901; 86920; 87040; 87070; 87075; 87086; 87088; 87102; 87106; 87205; 87206; 93005; 94002; 94003; 94640; 94660; 94669; 96361; 96365; 97161; 97166; 97530; 99285; A9270; C1751; C9113; J0131; J0692; J1100; J1450; J1644; J1650; J1720; J1815; J1940; J2060; J2270; J2405; J3370; J3475; J3480; J7030; J7040; J7050; P9016; P9045; P9047